=== PATIENT | male | born 1970 | race Caucasian/White ===

== ENCOUNTER 2017-09-09 09:55 | Outpatient (RCR) | payer OTHER, SELFPAY ==
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
== END 2017-09-09 10:30 | disposition home or self-care (01) ==
LOC: PT 09:55
DX: S88.121 Partial traumatic amputation at level between knee and ankle, right lower leg (principal)
CPT/HCPCS: 97164

== ENCOUNTER 2018-04-17 09:00 | Outpatient (RCR) | payer OTHER, SELFPAY ==
--- NOTE | 2018-02-27 16:13 | HP.PTEVAL_ITS ---
Patient's Visit Information JOHN ADORNO is a 47 year old M referred to Physical Therapy by Rufus Quintanilla with a diagnosis of R AKA and L ankle tendonitis. Date of Evaluation: 02/13/18 Physical Therapist: Marco Uribe - Visit Plan Frequency: 2-3x /Week Duration: 6 Weeks Plan: Start with hip flexor stretching, gait training, R hip strengthening, L ankle stretching, L ankle strengthening. - Subjective Subjective: Pt. is here today for his initial evaluation with diagnosis of R AKA and L ankle tendonitis. Pt. is known to his PT from previous episodes of care. Pt. is here now for gait training with R prothesis, he is WBAT and to add in hip stretching, and L ankle ROM/strenghthening. Pt. reports having surgery in Feburary of this year. He has his prothesis and reports having good tolerance to wearing, but is concerned as depending on the day he has to wear greater ply to get a greater fit. Pt. reports having phantom pain at 5-6/10 in R distal LE. Pt. reports no issues with skin break down with distal residual limb. Pt. reports getting used to walking with prothesic knee as previously he was a BKA on the R side. He is to follow up with prothestis tomorrow. He has been trying to do exercises as previously, but reports having difficulty. Pt. is using a crutch with mobility as at times he feels like he leg with buckle on him. He also reports having to perform quick hip flexion to lock his R knee into ext as he prepares for WBing. Pt. reports having 1 episode when his leg gave with prosthesis due to not having it locked in extension berfore adding weight to his limb. He also has a distal lateral ankle issue, with reports that he bent the pin that was implanted in distal fibula from a previous surgery. He reports minimal pain when wearing brace on ankle, but is to alternate wearing and not wearing to increase L ankle strength/proprioception. Pt. is hopeful to increase stability in stance and get to walking without device and back to recreational mobility. - Pain R residual limb Pain Intensity (Out of 10): 5 Pain Intensity Range: 3, 6 L ankle Pain Intensity (Out of 10): 4 Pain Intensity Range: 3, 6 - Objective POSTURE: Pt. is able to stand without AD. He has slight L lateral wt. shift, but prosthesis has no vagus positioning and no lateral angle noted. PALPATION: Pt. has increased pain at L distal fibural region and lateral ankle. Pt. has no medial ankle pain on L side. Pt. has well healing incsion of distal residual limb on R side. Pt. has no drainage or redness noted. NEUROLOGICAL: Pt. has normal sensation to light and sharp touch distal LLE, Pt. has decreased sensation to light touch of residual limp, but firm palaption is normal. Pt. has 2+ L achilles and patellar DTR. ROM:R hip- ext 8deg, flexion 120deg, abd 38deg. L ankle- DF 11deg. increase NW, FP 48deg NE, EVR 12 degrees increase NW , INV 20deg NE. L knee 0-0-128deg., hip- tightness in HS, hip flexor. MMT: LLE - ankle- DF 4+/5, PF 4+/5, EVR 4/5 increase NW, INV 4+/5; knee- ext 5/5. flexion 5/5. RLE- hip- flexion 4/5, abd 4/5, ext 4/5, add 4+/5. Core strength- poor+. GAIT: Pt. ambulates initially with crutch as he feels like his leg will give out on him. Pt. has increased hip flexion to get leg to extend to lock knee out. pt. has no circumduction, but slight R glute med weakness. Pt. ambulated without AD with SBA without LOB, but has increased LORENA and is apprehensive to R bear wt. Pt. to follow up with prosthesis about tightening hindge to increase recoil for knee ext. - Goals Goal 1:: Pt. to be I with HEP. Goal Time Frame: 4-6 Weeks Goal 2:: Pt. to have increased R hip ROM to full without limitations allowing for normal gait pattern Goal Time Frame: 4-6 Weeks Goal 3:: Pt to have increased BLE strength by 1/2 grade of all effected musculature increasing stability with all functional mobility. Goal Time Frame: 4-6 Weeks Goal 4:: Pt. to ambulate without AD 300+ ft. without limatations or signs of residual limb skin breakdown. Goal Time Frame: 4-6 Weeks Goal 5:: Pt. to negoatiate steps with step to pattern with 1 HR without issues or LOB. - Rehabilitation Potential Physical Therapy Diagnosis: Pt. has signs and symptoms consistent with R AKA and L ankle tendonitis. Pt. has subsequent gait difficulties, R hip weakness, L ankle hypomobility and LLE weakness. Pt. would benefit from PT to increase BLE strength, R hip ROM, hip flexor stretching. Rehabilitation Potential: Excellent - Anticipated Interventions Patient/Client Instruction: Educate patient on: Condition, Plan of Care, Risk Factors, Benefits of Fitness Program For the Purpose of:: To improve decision making, To facilitate caregiver knowledge, To improve self management, To prevent re-injury, To improve ability to perform tasks related to life management, To improve tolerance to ADL's Therapeutic Exercise to Include: Strength training, Power training, Endurance training, Balance training, Body mechanics, Postural training, Flexibilty training, Gait and locomotor training, Passive ROM, Active ROM, Dynamic Lumbar Stabilization For the Purpose of:: To decrease pain, To increase ROM, To improve nutrient delivery to tissue, To increase oxygenation perfusion, To improve muscle performance and motor function, To improve ability to perform ADL's, To improve performance and independence with ADL's, To decrease level of supervision to perform tasks, To improve ability of physical actions for home/community/work/ leisure, To improve gait and locomotor functions, To improve health of tissue, To decrease soft tissue restriction, To increase flexibility/ROM, To improve endurance Thank you for the opportunity to evaluate your patient. For Medicare and Medicare HMO plans, please review the plan of care and approve it. It will need to be FAXED BACK to us at [phone] for Medicare purposes. Please let me know if there are questions or concerns regarding this plan of care. Physician Signature: Date:
--- NOTE | 2018-04-28 07:39 | HP.PTREVAL_ITS ---
Rufus Quintanilla, It has been my pleasure to treat JOHN ADORNO over the last 12 visits for R AKA and L ankle tendonitis. Please see the progress note below for an update on the physical therapy plan of care! Subjective: Pt. reports continued pain in L ankle/foot and distal residual limb with prolonged ambulation. He has decreased pain with wearing L brace, but is to wear everyother day to not promote weakness. Pt. reports being able to wear prothesis upto 4-5 hours a day before having intense pain and has to remove. Pt. also reports if he is sitting for longer periods of time he has increased RLE pain, most likely due to prothesis being unsupported and putting pressure on posterior leg. Pt. reports being HEP compliant. He is also to have surgery in near future to remove spinal stimulator in order to have MRI on L ankle/foot. Objective/Function: Pt. is able to ambulate 300ft with SPC with improved pattern. He is less methodical about R foot placement andhaving hinge locked out this date. Pt. has increased BLE strength. RLE- hip- flexion 4+/5, abd 4+/5 , ext 4/5; LLE- ankle 5-/5 throughout; knee- ext 5/5, flexion 5-/5; hip- flexon 5/5, abd 4+/5, ext 5/5. Pt. has increased R hip flexor motion as well, but limited with increased stretching due to icnreased R sided LBP. Pt. also has difficulty with lying on back due to pain at stimulator region. Pt. also reports increased pain at L ankle at incision site of previous surgery, that intensfies with all WBing. Pt. has good positioning of prothesis with gait and has been able to add/remove ply of stockenettes to increase stability for proper fit. Plan Plan: Pt. to follow up with physician and have surgery for removal of stimulator next week. Pt. will most likely be on PT hold while he recovers from surgery. Pt. continues to exhibit generalized weakness in bilateral hips and core. He has improved gait pattern and increased fluidity of movement with prothesis. He continues to require cane for stability. Goals Goal 1:: Pt. to be I with HEP. Goal Time Frame: 4-6 Weeks Goal Progress: Goal Met Goal 2:: Pt. to have increased R hip ROM to full without limitations allowing for normal gait pattern Goal Time Frame: 4-6 Weeks Goal Progress: Progressing Goal 3:: Pt to have increased BLE strength by 1/2 grade of all effected musculature increasing stability with all functional mobility. Goal Time Frame: 4-6 Weeks Goal Progress: Goal Met Goal 4:: Pt. to ambulate without AD 300+ ft. without limatations or signs of residual limb skin breakdown. Goal Time Frame: 4-6 Weeks Goal Progress: Progressing Goal 5:: Pt. to negoatiate steps with step to pattern with 1 HR without issues or LOB. Goal Progress: Goal Met Anticipated Interventions Patient/Client Instruction: Educate patient on: Condition, Plan of Care, Risk Factors, Benefits of Fitness Program For the Purpose of:: To improve decision making, To facilitate caregiver knowledge, To improve self management, To prevent re-injury, To improve ability to perform tasks related to life management, To improve tolerance to ADL's Therapeutic Exercise to Include: Strength training, Power training, Endurance training, Balance training, Body mechanics, Postural training, Flexibilty training, Gait and locomotor training, Passive ROM, Active ROM, Dynamic Lumbar Stabilization For the Purpose of:: To decrease pain, To increase ROM, To improve nutrient delivery to tissue, To increase oxygenation perfusion, To improve muscle performance and motor function, To improve ability to perform ADL's, To improve performance and independence with ADL's, To decrease level of supervision to perform tasks, To improve ability of physical actions for home/community/work/ leisure, To improve gait and locomotor functions, To improve health of tissue, To decrease soft tissue restriction, To increase flexibility/ROM, To improve endurance Please do not hesitate to contact me at [phone] by phone or Fax: if you have questions or concerns regarding this new plan of care! Sincerely, Marco Uribe
--- NOTE | 2018-07-10 11:15 | HP.PTDCNRP_ITS ---
HP - Discharge Summary (1) - Patient Information JOHN ADORNO was seen in my office for initial evaluation on 02/13/18. The following Plan of Care was established for this patient: Initial Frequency: 2-3x /Week Initial Duration: 6 Weeks - Anticipated Interventions Patient/Client Instruction: Educate patient on: Condition, Plan of Care, Risk Factors, Benefits of Fitness Program For the Purpose of:: To improve decision making, To facilitate caregiver knowledge, To improve self management, To prevent re-injury, To improve ability to perform tasks related to life management, To improve tolerance to ADL's Therapeutic Exercise to Include: Strength training, Power training, Endurance training, Balance training, Body mechanics, Postural training, Flexibilty training, Gait and locomotor training, Passive ROM, Active ROM, Dynamic Lumbar Stabilization For the Purpose of:: To decrease pain, To increase ROM, To improve nutrient delivery to tissue, To increase oxygenation perfusion, To improve muscle performance and motor function, To improve ability to perform ADL's, To improve performance and independence with ADL's, To decrease level of supervision to perform tasks, To improve ability of physical actions for home/community/work/leisure, To improve gait and locomotor functions, To improve health of tissue, To decrease soft tissue restriction, To increase fl exibility/ROM, To improve endurance This patient was last seen in our office 04/17/18. Pertinent comments regarding their Physical therapy will appear below: Pt. was seen for gait training after AKA. Pt. was progressing as expected, but was limited by his opposite LE ankle pain. At our last visit he was to have surgery to remove spinal stimulator and then possible ORIF of L ankle. Pt. has not been seen in ~3 months and will be DC from PT at this point in time. At this point I will be discontinuing this patient from physical therapy. I would be happy to see this patient again in the future if found appropriate by the physician. Thank you! Marco Uribe
== END 2018-04-17 19:00 | disposition home or self-care (01) ==
LOC: PT 09:00
DX: M77.9 Enthesopathy, unspecified (principal); Z89.611 Acquired absence of right leg above knee
CPT/HCPCS: 97110; 97116; 97162; 97530

== ENCOUNTER 2019-01-26 07:00 | Outpatient (RCR) | payer OTHER, SELFPAY ==
--- NOTE | 2018-08-04 08:42 | HP.PTEVAL_ITS ---
Patient's Visit Information JOHN ADORNO is a 48 year old M referred to Physical Therapy by HAO WEATHERS with a diagnosis of Right AKA. Date of Evaluation: 08/04/18 Physical Therapist: Marylou Stearns - Visit Plan Frequency: 3x /Week Duration: 6 Weeks Plan: Focus on endurance, strength and core s/s - Subjective Subjective: 05/20/11 Initial Injury-Last time therapy was supposed to continue but [facility] had a hold. The finally removed the spinal cord stimulator February 2018- Jul 17 MRI of the left ankle- read Aug 14 read- Dr. Philip in . Then he has to wait to see what [facility] will approve. Last they approved his new prosthesis- [employer]- every until . Falls about 1x a day due to his old prosthesis- eps on uneven ground. Has not hit his head or lost consiousness. Always uses the cane for balance and helps to decrease his falls. Has two types of pain- phantom pain never decreases and is terrible- subdued when in the prosthesis or with compression. Worst: 8/10 Best: 10. L imb pain in the right leg- /10 goes up and down depending on activity level. Wraps his own stump. No sores from pressure or anythign else. Very active- waiste up wants to go but waiste down is where he is slowed down. Weakness in walking and endurance. Sleeps 4 hours a night and its not continual. PMhx: 9 hernia surgeries, left ankle surgery, 7 amputations from below to above knee- 6 months after injury until Osteomyelitis took it. Does feel there will have to be continued surgeries. Meds: none Work: Disability - Objective POSTURE: FH, RS- can correct with verbal cues but does not maintain. He is able to stand without AD and no UE A. He has mild L lateral wt. shift, but prosthesis has no vagus positioning and no lateral angle noted. PALPATION: Patient reports increased pain with touch of any kind to the residual limb. Reflexes: Pt. has 2+ L achilles and patellar DTR. ROM:WFL in all planes of the right hip and left LE MMT: Right hip: 4/5 throughout, Left hip: 4+/5, Knee: 5/5, ankle: 4+/5 Core strength- poor+. GAIT: ambulates with cane in his left hand- kicks his right leg forwards to lock out the knee to bear weight through. Increased hip drop. Stairs: asc.desc non recip with 2 HR. HR/TR: able on the left - Goals Goal 1:: Patient will be I with HEP and progression Goal Time Frame: 6-8 Weeks Goal 2:: Patient will demo 5/5 strength in LE Goal Time Frame: 6-8 Weeks Goal 3:: Patient will maintain proper posture t/o tx session to demo increased scap s/s. Goal Time Frame: 6-8 Weeks Goal 4:: Patient will report 3 falls per week without injury (down from over 7). Goal Time Frame: 6-8 Weeks - Rehabilitation Potential Physical Therapy Diagnosis: Patient presents with hypomobility- he has decreased strength, flex and muscular endurnace leading to abnormal gait and decreased ability to perform ADL's. Rehabilitation Potential: Fair - Anticipated Interventions Patient/Client Instruction: Educate patient on: Benefits of Fitness Program Therapeutic Exercise to Include: Strength training, Endurance training, Balance training, Agility training, Body mechanics, Postural training, Flexibilty training, Dynamic Lumbar Stabilization For the Purpose of:: To improve muscle performance and motor function Thank you for the opportunity to evaluate your patient. For Medicare and Medicare HMO plans, please review the plan of care and approve it. It will need to be FAXED BACK to us at [phone] for Medicare purposes. Please let me know if there are questions or concerns regarding this plan of care. Physician Signature:____ Date:
--- NOTE | 2018-09-24 09:19 | HP.PTREVAL_ITS ---
HAO WEATHERS, It has been my pleasure to treat JOHN ADORNO over the last 14 visits for Right AKA. Please see the progress note below for an update on the physical therapy plan of care! Subjective: Patient reports that he had his leg for 3 days- heard a crunch and it felt like his leg was disintegrating and his foot came off. Goes back to the entry level account representative next week. Feels like it gives more umph. Therapy needs to learn how to walk with the new leg- the MD already is in the works. Objective/Function: Measurements in his old leg as his new one needs repairs- see above note. POSTURE: FH, RS- can correct with verbal cues but does not maintain. He is able to stand without AD and no UE A. He has mild L lateral wt. shift, but prosthesis has no vagus positioning and no lateral angle noted. PALPATION: Patient reports increased pain with touch of any kind to the residual limb. Reflexes: Pt. has 2+ L achilles and patellar DTR. ROM:WFL in all planes of the right hip and left LE MMT: Right hip: 4/5 throughout, Left hip: 4+/5, Knee: 5/5, ankle: 4+/5 Core strength- fair plus. GAIT: ambulates with cane in his left hand- kicks his right leg forwards to lock out the knee to bear weight through. Increased hip drop. Stairs: asc.desc non recip with 2 HR. HR/TR: able on the left Plan Plan: Finish the last 4 visits on this POC then continue 2-3x a week for 8 weeks with new prosthesis to promote I and ease of functional mobility. Goals Goal 1:: Patient will be I with HEP and progression Goal Time Frame: 6-8 Weeks Goal Progress: Progressing Goal 2:: Patient will demo 5/5 strength in LE Goal Time Frame: 6-8 Weeks Goal Progress: Progressing Goal 3:: Patient will maintain proper posture t/o tx session to demo increased scap s/s. Goal Time Frame: 6-8 Weeks Goal Progress: Progressing Goal 4:: Patient will report 3 falls per week without injury (down from over 7). Goal Time Frame: 6-8 Weeks Goal Progress: Progressing Anticipated Interventions Patient/Client Instruction: Educate patient on: Benefits of Fitness Program Therapeutic Exercise to Include: Strength training, Endurance training, Balance training, Agility training, Body mechanics, Postural training, Flexibilty training, Dynamic Lumbar Stabilization For the Purpose of:: To improve muscle performance and motor function Please do not hesitate to contact me at [phone] by phone or if you have questions or concerns regarding this new plan of care! Sincerely, CLARY ShahT
--- NOTE | 2018-12-02 10:52 | HP.PTREVAL ---
HAO WEATHERS, It has been my pleasure to treat JOHN ADORNO over the last 19 visits for Right AKA. Please see the progress note below for an update on the physical therapy plan of care! Subjective: New pain management doctor and he is working with medications and he would like to take less- they want him to take it daily but it makes him sick so he takes it at night. Goes back to see him . They are about to make home modifications- talking about a possible leg to wear in the shower. Wakes up every morning does his band exercises and he feels awful. The new prosthesis is really hard to get use to. He feels really weak in his lower extremeities. Phantom pain when he takes his leg off. Objective/Function: POSTURE: FH, RS- can correct with verbal cues but does not maintain. He is able to stand without AD and no UE A. He has mild L lateral wt. shift.PALPATION: Patient reports increased pain with touch of any kind to the residual limb. ROM:WFL in all planes of the right hip and left LE MMT: Right hip: 4/5 throughout, Left hip: 4/5, Knee: 5/5, ankle: 5/5 Core strength- fair. GAIT: ambulates with no AD- kicks his right leg forwards to lock out the knee to bear weight through which takes a second longer so his gait is not smooth. Increased hip drop. Stairs: asc.desc non recip with 2 HR. HR/TR: able on the left. SLS: 18 seconds on the left and 2 seconds on the prosthesis. Plan Plan: Cont with POC 2x a week for 5 weeks Goals Goal 1:: Patient will be I with HEP and progression Goal Time Frame: 6-8 Weeks Goal Progress: Progressing Goal 2:: Patient will demo 5/5 strength in LE Goal Time Frame: 6-8 Weeks Goal Progress: Progressing Goal 3:: Patient will maintain proper posture t/o tx session to demo increased scap s/s. Goal Time Frame: 6-8 Weeks Goal Progress: Progressing Goal 4:: Patient will report 3 falls per week without injury (down from over 7). Goal Time Frame: 6-8 Weeks Goal Progress: Progressing Anticipated Interventions Patient/Client Instruction: Educate patient on: Benefits of Fitness Program Therapeutic Exercise to Include: Strength training, Endurance training, Balance training, Agility training, Body mechanics, Postural training, Flexibilty training, Dynamic Lumbar Stabilization For the Purpose of:: To improve muscle performance and motor function Please do not hesitate to contact me at [phone] by phone or if you have questions or concerns regarding this new plan of care! Sincerely, CLARY ShahT
--- NOTE | 2019-01-06 10:04 | HP.PTREVAL ---
HAO WEATHERS, It has been my pleasure to treat JOHN ADORNO over the last 28 visits for Right AKA. Please see the progress note below for an update on the physical therapy plan of care! Subjective: Saw MD last week and discussed his plateau- he is miserable in the AM but once he does therapy he feels better. MD wants to continue therapy on land and add in aquatic therapy but waiting to get a prosthetic that can go in the water. Is planning on having a new C9 put in place. Adjustments for the prosthesis and now its a little sore- No problems with wounds. Does feel like he is getting better. Objective/Function: POSTURE: FH, RS- can correct with verbal cues but does not maintain. He is able to stand without AD and no UE A. He has mild L lateral wt. shift.PALPATION: Patient reports increased pain with touch of any kind to the residual limb. ROM:WFL in all planes of the right hip and left LE MMT: Right hip: 4+/5 throughout, Left hip: 4+/5, Knee: 5/5, ankle: 5/5 Core strength- fair plus. GAIT: ambulates with no AD- kicks his right leg forwards to lock out the knee to bear weight through which takes a second longer so his gait is not smooth. Increased hip drop. Stairs: asc.desc non recip with 2 HR. HR/TR: able on the left no brace today on left ankle. Plan Plan: Hold until new C9 is established Goals Goal 1:: Patient will be I with HEP and progression Goal Time Frame: 6-8 Weeks Goal Progress: Progressing Goal 2:: Patient will demo 5/5 strength in LE Goal Time Frame: 6-8 Weeks Goal Progress: Progressing Goal 3:: Patient will maintain proper posture t/o tx session to demo increased scap s/s. Goal Time Frame: 6-8 Weeks Goal Progress: Progressing Goal 4:: Patient will report 3 falls per week without injury (down from over 7). Goal Time Frame: 6-8 Weeks Goal Progress: Progressing Anticipated Interventions Patient/Client Instruction: Educate patient on: Benefits of Fitness Program Therapeutic Exercise to Include: Strength training, Endurance training, Balance training, Agility training, Body mechanics, Postural training, Flexibilty training, Dynamic Lumbar Stabilization For the Purpose of:: To improve muscle performance and motor function Please do not hesitate to contact me at [phone] by phone or if you have questions or concerns regarding this new plan of care! Sincerely, CLARY ShahT
--- NOTE | 2019-02-05 13:38 | HP.PT.NRP ---
HP - Discharge Summary (1) - Patient Information JOHN ADORNO was seen in my office for initial evaluation on 08/04/18. The following Plan of Care was established for this patient: Initial Frequency: 3x /Week Initial Duration: 6 Weeks - Anticipated Interventions Patient/Client Instruction: Educate patient on: Benefits of Fitness Program Therapeutic Exercise to Include: Strength training, Endurance training, Balance training, Agility training, Body mechanics, Postural training, Flexibilty training, Dynamic Lumbar Stabilization For the Purpose of:: To improve muscle performance and motor function This patient was last seen in our office . Pertinent comments regarding their Physical therapy will appear below: Discharge secondary to no date extension on C9 At this point I will be discontinuing this patient from physical therapy. I would be happy to see this patient again in the future if found appropriate by the physician. Thank you! CLARY ShahT
== END 2019-01-26 19:00 | disposition home or self-care (01) ==
LOC: PT 07:00
DX: G90.511 Complex regional pain syndrome I of right upper limb (principal); S82.121D Displaced fracture of lateral condyle of right tibia, subsequent encounter for closed fracture with routine healing; M76.72 Peroneal tendinitis, left leg
CPT/HCPCS: 97110; 97162; 97164

== ENCOUNTER 2019-04-09 11:30 | Outpatient (RCR) | payer OTHER, SELFPAY ==
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
--- NOTE | 2019-06-26 10:50 | HP.PT.NRP ---
HP - Discharge Summary (1) - Patient Information JOHN ADORNO was seen in my office for initial evaluation on 03/23/19. The following Plan of Care was established for this patient: Initial Frequency: 3x /Week Initial Duration: 4 Weeks - Anticipated Interventions Patient/Client Instruction: Educate patient on: Condition, Plan of Care For the Purpose of:: To improve self management Therapeutic Exercise to Include: Strength training, Endurance training, Balance training, Gait and locomotor training, Dynamic Lumbar Stabilization For the Purpose of:: To decrease pain, To improve muscle performance and motor function, To improve gait and locomotor functions Cryotherapy (ice pack, ice massage): Yes For the Purpose of:: To decrease pain This patient was last seen in our office . Pertinent comments regarding their Physical therapy will appear below: Pt was treated for 6 PT visits through the date of 04/09/19. Pt has not returned through todays date and is discontinued at this time. At this point I will be discontinuing this patient from physical therapy. I would be happy to see this patient again in the future if found appropriate by the physician. Thank you! Sourav Lopes, PT, ATC
== END 2019-04-09 19:00 | disposition home or self-care (01) ==
LOC: PT 11:30
DX: S88.121 Partial traumatic amputation at level between knee and ankle, right lower leg (principal); G90.511 Complex regional pain syndrome I of right upper limb
CPT/HCPCS: 97110; 97161

== ENCOUNTER 2020-07-20 17:00 | Emergency (ER) | payer OTHER, SELFPAY ==
[2020-07-20 17:00] VITALS: BP 131/96; PULSE 77; RESP 16; TEMP 36.1; O2SAT 99; BMI 29.3
--- NOTE | 2020-07-20 17:31 | ED.VIS.GEN ---
History of Present Illness Chief Complaint: Lower Extremity Injury Narrative: Patient has a right vkfag-ajw-khom amputation which was performed 9 years ago, he has chronic pain but his pain in the right leg got worse today. He had a recent STEMI, his PCP apparently did not know if he can have muscle relaxants. He was sent to the emergency department. He has no new pain today he has no fever or chills he has no discoloration he ended up having a catheterization but the insertion was through the right wrist and not the groin. Past Medical History - Allergies and Home Meds Allergies/Adverse Reactions: Allergies No Known Allergies Allergy (Verified 07/20/20 17:03) Primary Care Physician: Lakesha Wick,Out of [Primary Care Provider] - Past Medical History: - - Zsyku-hon-gutk amputation, cardiac disease Smoking Status: Former smoker Review of Systems General: Denies: Fever Cardiovascular: Denies: Chest pain Gastrointestinal: Denies: Nausea, Vomiting Musculoskeletal: Reports: Myalgias, Extremity Pain Skin: Denies: Rash Neurological: Denies: Headache, Weakness Hematologic: Denies: Easy bruising, Easy bleeding Physical Exam Vital Signs/Narrative: Vital Signs Temp Pulse Resp BP Pulse Ox 07/20/20 17:00 97 F L 77 16 131/96 H 99 General: Well nourished Head: Normocephalic Cardiovascular: Regular rate, Regular rhythm Respiratory: No distress, CTA bilaterally Abdomen: Soft, Nontender Back: Nontender Extremities: - - The hmvga-mpl-juau amputation looks intact he has normal color with normal capillary refill. Femoral pulse is intact Neurological: Normal Strength, Normal Sensation Diagnostic/Tx/Re-eval - Medical Decision Making Patient has chronic recurrent pain he appears well he tells me this is the same pain is just somewhat worse. I will treated with analgesia he has Percocets at home but no muscle relaxants. Otherwise I will discharge in stable condition ED Disposition - Plan for ED Patient: Disposition: Home or Assisted Living Diagnosis: Hx of BKA, Muscle spasm Instructions: ED Muscle Pain Leg Cramps Prescriptions: Tizanidine HCl 4 mg PO TID #30 tab Prescription Printed Referrals: Lakesha WickOut of [Primary Care Provider] -
[2020-07-20] MEDS: Ondansetron ODT 4 MG Tablet PO (17:40)
[2020-07-20] MEDS: HYDROmorphone 1 MG/ML Syringe IM (17:41)
[2020-07-20] MEDS: diazePAM 5 MG Tablet PO (17:42)
[2020-07-20 18:20] VITALS: BP 126/87; PULSE 76; RESP 15; O2SAT 98
== END 2020-07-20 18:20 | disposition home or self-care (01) ==
PROVIDERS: Emergency Provider Emergency Medicine
DX: M62.838 Other muscle spasm (principal); Z89.611 Acquired absence of right leg above knee
CPT/HCPCS: 96372; 99283

== ENCOUNTER 2021-04-12 10:00 | Outpatient (RCR) | payer OTHER, SELFPAY ==
--- NOTE | 2021-03-06 16:24 | HP.OTEVAL ---
Patient's Visit Information JOHN ADORNO is a 50 year old M, referred to Occupational Therapy by JOSÉ ANTONIO ALMEIDA, with a diagnosis of right lateral epicondylitis. Date of Evaluation: 03/06/21 Occupational Therapist: Vickie Andujar, RADHA/Petrona, CHT - Subjective This 50 year old male was seen for OT eval with dx of lateral epicondylitis right elbow- sx release was February 01, 2021. pt states at least 6 years of issues prior to sx. pt to have left 03/15/21. pt using crutches or walker daily. due to a AKA right. pt is hopeful pain will subside following sx and he can use his WW or crutches for mobility around his home. - Pain right elbow 1 Pain Intensity Range: 4 - ROM Elbow: right 0/140 left 0/140 Forearm: right WNL but has pain 4/10 left WNL Wrist: right 65/50 left 75/60 - Strength Shoulder: right 4/5 left 4-/5 Elbow: right triceps 4-/10 left 4/5 Senior Interactive Producer: right 70# left 75# Lateral Pinch: right 6# left 8# Tripod Pinch: right 6# left 8# with pain Strength Comments: right elbow straight 70# left 60# with pain - Sensation Sensation Comments: denies - Quick DASH-Disab of Arm,Shoulder& Hand Quick DASH Score: 52.2725 - Goals Goal:: Pt will demo a increase in right roving tester laboratory by 10# with no pain to return pt to PLOF with ADLs and IADls. pt will demo a increase in right lateral and tripod pinch by 4# to increase pts ind. with opening lids/containers etc by d/c. PT will demo a increase in UB MMT to 5/5 by d/c Goal:: pt will demo a increase in right wrist ROM by 20* or greater to return pt to PLOF with ADLs and IADLs by d/c Goal:: pt will report no pain greater than 1/10 with use of right UE by d/c Goal:: Pt will demo understanding of work/lifting and carry ergonomics to decrease stress on tendons to increase pts independent with ADLs, IADLS and work tasks by d/c. - Rehabilitation General Assessment: pt is 4 weeks 2 days s/p from lat epi release. pt demo with limited right wrist ROM, weakness and pain limiting pts IND with ADLs and IADLS. pt would benefit from skilled OT services 2-3x week for 4 weeks to return pt to PLOF. Today pt ed. pt on light end range stretch and scar mtg- therapy will transition pt to PRE as anastasiia. and ed. pt on ergo and joint protection to limit stress on lig/tendons and prevent further inj. pt demo understanding and agree to POC. Rehabilitation Potential: Good - Anticipated Interventions A/AAROM/PROM, Strengthening, Scar Care, Triggerpoint Release, Joint Protection/Energy Conservation - Visit Plan Frequency: 2-3x /Week Duration: 4 Weeks TEXT: Thank you for the opportunity to evaluate your patient. For Medicare and Medicare HMO plans, please review the plan of care and approve it. It will need to be FAXED BACK to us at [phone] for Medicare purposes. Please let me know if there are questions or concerns regarding this plan of care. Physician Signature: Date:
== END 2021-04-12 19:00 | disposition home or self-care (01) ==
LOC: OT 10:00
DX: M77.11 Lateral epicondylitis, right elbow (principal)
CPT/HCPCS: 97110; 97166

== ENCOUNTER 2023-08-23 21:22 | Emergency (ER) | payer MEDICARE, MEDICAID, SELFPAY ==
[2023-08-23 21:23] VITALS: BP 123/75; PULSE 82; RESP 18; TEMP 36.6; O2SAT 98
--- NOTE | 2023-08-23 22:14 | EDS_ITS ---
HPI <Dr. Marv Loja DO - Last Filed: 08/26/23 09:10> HPI - Fall History of Present Illness Chief Complaint: Fall Informant: patient Occured/Mechanism Occurred: Today Fall down steps #: 2 Pain/Injury Pain Location: abdomen and back Worsened by: Nothing Relieved by: Nothing Associated Symptoms Associated Symptoms: Negative for Parasthesias, Weakness, Loss of function, Inability to ambulate, Loss of consciousness or Amnesia Narrative Narrative: Patient presents after a fall that occurred today. Patient fell down 2 steps and hit his back. Patient landed on the garage floor. Patient was able to get up after this. Patient fell again and landed on his back. Patient had some nausea and vomiting after the second fall. states that appeared to be brown emesis that looked like stool. Patient states his pain is sharp. Patient states it is localized to the left lower back and left abdomen. Patient admits to some subjective chills but denies any fevers. Patient denies any urinary complaints. [facility] <Dr. Marv Loja DO - Last Filed: 08/26/23 09:10> [facility] Medical History (Updated 08/24/23 @ 02:[address] Seth Moses DO) Hyperlipidemia Home Medications cephalexin 500 mg capsule 07/20/20 [History Last Taken Unknown] clopidogrel 75 mg tablet 75 mg PO DAILY 07/20/20 [History Last Taken Unknown] metoprolol tartrate 25 mg tablet 12.5 mg PO BID 07/20/20 [History Last Taken Unknown] rosuvastatin 20 mg tablet 20 mg PO DAILY 07/20/20 [History Last Taken Unknown] tizanidine 4 mg tablet 4 mg PO TID #30 tabs 07/20/20 [Rx Last Taken Unknown] ketorolac 10 mg tablet 10 mg PO 4X/DAY PRN PRN pain 5 days #20 tabs 08/24/23 [Rx Last Taken Unknown] oxycodone-acetaminophen 5 mg-325 mg tablet (Percocet) 1 tab PO Q6H PRN pain 5 days #20 tabs 08/24/23 [Rx Last Taken Unknown] promethazine 25 mg tablet 25 mg PO TID PRN nausea and vomiting #21 tabs 08/24/23 [Rx Last Taken Unknown] tamsulosin 0.4 mg capsule (Flomax) 0.4 mg PO DAILY 14 days #14 caps 11/25/23 [Rx Last Taken Unknown] Allergy/AdvReac Type Severity Reaction Status Date / Time No Known Allergies Allergy Verified 08/23/23 21:26 Surgical History (Updated 08/23/23 @ 22:[address] Marv Loja, ) Hx of BKA Hx of heart artery stent Social History Smoking Status: Former smoker ROS <Dr. Marv Loja, - Last Filed: 08/26/23 09:10> ROS ED Constitutional Constitutional ED: Reports chills; Denies fever(s) Eyes Eyes: Denies blurry vision or change in vision ENT ENT ED: Reports rhinorrhea; Denies sore throat Cardiovascular Cardiovascular: Denies chest pain or palpitations Respiratory/Chest Respiratory/Chest: Denies cough or dyspnea Gastrointestinal Gastrointestinal: Reports abdominal pain, nausea and vomiting Genitourinary Genitourinary ED: Denies dysuria or hematuria Musculoskeletal Musculoskeletal: Reports back pain; Denies neck pain Integumentary Denies abscess or rash Neurologic Neurologic: Denies headache(s) or weakness Allergic/Immunologic Allergic/Immunologic ED: Denies mouth swelling or urticaria EXAM <Dr. Marv Loja, DO - Last Filed: 08/26/23 09:10> Physical Exam Const Vital Signs: 08/23/23 21:23 08/23/23 22:41 Temperature 97.9 F Temperature Source Temporal Pulse Rate 82 Respiratory Rate 18 Respiratory Effort Short of Breath Blood Pressure 123/75 H Blood Pressure Mean 91 Pulse Ox 98 Oxygen Delivery Method Room Air Positive well nourished and well developed General Appearance ED: well developed HEENT Reports normocephalic atraumatic Neck full ROM and supple Resp normal respiratory effort and clear to auscultation bilaterally Cardio regular rate and regular rhythm GI GI Narrative: There is tenderness over the left upper and lower abdomen. There is no rebound or guarding noted. There are no masses palpated. Palpation: soft Back/Spine General Back: CVA tenderness left Lumbar Spine / Lower Back: paraspinal muscle tenderness left Neuro oriented x3, CN's II-XII intact bilaterally, moves all extremities, no focal motor deficits and no sensory deficits noted Kimberly Coma Scale: document GCS findings Spontaneous Obeys Commands Oriented 15 Sensorium / Orientation: alert Motor Exam: strength 5/5 throughout Psych mental status grossly normal and thought process normal <Dr. Seth Moses, DO - Last Filed: 08/24/23 02:50> Physical Exam Const Vital Signs: 08/23/23 21:23 08/23/23 22:41 Temperature 97.9 F Temperature Source Temporal Pulse Rate 82 Respiratory Rate 18 Respiratory Effort Short of Breath Blood Pressure 123/75 H Blood Pressure Mean 91 Pulse Ox 98 Oxygen Delivery Method Room Air Neuro Kimberly Coma Scale: document GCS findings 15 MDM <Dr. Marv Loja, DO - Last Filed: 08/26/23 09:10> [facility] MDM Narrative Medical decision making narrative: Differential diagnosis includes bowel obstruction, perforation, acute kidney injury, renal contusion, intra-abdominal injury, electrolyte abnormality, coagulopathy, and muscle strain. CBC will be obtained to assess for leukocytosis and anemia. Comprehensive metabolic profile will be obtained to assess for hepatic function, renal function, and electrolyte abnormality. PT with INR and PTT will be obtained to assess for coagulopathy. CT scan of the abdomen pelvis will be obtained to assess for bowel obstruction, perforation, and intra-abdominal injury. Urinalysis will be obtained to assess for hematuria and urinary tract infection. Lab Data Attestation: I reviewed the patient's lab results. Lab results narrative: CBC was reviewed. There is a slight leukocytosis of 11.3. The remainder is within normal limits. PT with INR and PTT were reviewed and were within normal limits. Comprehensive metabolic profile was reviewed and was within normal limits. Urinalysis was reviewed. Occult blood was 250. There were 50-100 red blood cells noted. There were 5-10 white blood cells noted. Labs: Laboratory Results - last 24 hr 08/23/23 08/24/23 21:33 00:06 WBC 11.3 H RBC 4.86 Hgb 13.7 Hct 41.1 MCV 84.6 MCH 28.2 MCHC 33.3 RDW Std Deviation 41.0 RDW Coeff of [place] 13.3 Plt Count 200 MPV 11.9 Immature Gran % (Auto) 1.100 H Neut % (Auto) 69.6 Lymph % (Auto) 20.3 [place] % (Auto) 7.0 Eos % (Auto) 1.2 Baso % (Auto) 0.8 Absolute Neuts (auto) 7.9 H Absolute Lymphs (auto) 2.30 Nucleated RBC % 0 PT 12.5 INR 0.9 APTT 25.4 Sodium 140 Potassium 3.6 Chloride 105 Carbon Dioxide 30.0 Anion Gap 5 BUN 20 H Creatinine 1.17 Estim Creat Clear Calc 86.27 Est GFR (MDRD) Af Amer 84 Est GFR (MDRD) Non-Af 69 BUN/Creatinine Ratio 17.1 Glucose 190 H Calcium 9.2 Total Bilirubin 0.30 AST 30 ALT 51 Alkaline Phosphatase 73 Total Protein 7.2 Albumin 4.0 Globulin 3.2 Albumin/Globulin Ratio 1.2 Urine Color Yellow Urine Clarity Sl. Cloudy Urine pH 7.0 Ur Specific [place] 1.015 Urine Protein 30 H Urine Glucose (UA) 50 H Urine Ketones Negative Urine Occult Blood 250 H Urine Nitrite Negative Urine Bilirubin Negative Urine Urobilinogen Normal Ur Leukocyte Esterase 25 H Urine RBC 50-100 SEEN Urine WBC 5-10 SEEN Ur Squamous Epith Cells 0-5 SEEN Urine Bacteria 0 SEEN Urine Mucus 0 SEEN Radiography Diagnostic Testing: Clinical Impression(s) from Imaging Studies Abdomen/Pelvis CT 08/23/23 22:22 IMPRESSION: 1. Left nephrolithiasis. Mild left hydroureteronephrosis to the level of a 5 mm x 3 mm stone in the proximal-mid left ureter. Slight left perinephric fluid and soft tissue stranding and mild delayed phase enhancement of the left kidney compared to the right, findings consistent with acute ureter obstruction. 2. No other acute findings. Postoperative changes. Minimal degenerative spine changes. Presumed coronary artery stents. Electronically Signed: Kari Lara MD at 1:54 EST , Treatment and Re-Evaluation Narrative: Patient was given IV fluids, morphine, and Zofran. Patient was given a repeat dose of morphine and Zofran. Care of the patient was turned over to the oncoming physician pending CT scan results. <Dr. Seth Moses, DO - Last Filed: 08/24/23 02:50> [facility] History & Record Review Discussion w/independent historian: Patient and Significant other Lab Data Labs: Laboratory Results - last 24 hr 08/23/23 08/24/23 21:33 00:06 WBC 11.3 H RBC 4.86 Hgb 13.7 Hct 41.1 MCV 84.6 MCH 28.2 MCHC 33.3 RDW Std Deviation 41.0 RDW Coeff of [place] 13.3 Plt Count 200 MPV 11.9 Immature Gran % (Auto) 1.100 H Neut % (Auto) 69.6 Lymph % (Auto) 20.3 [place] % (Auto) 7.0 Eos % (Auto) 1.2 Baso % (Auto) 0.8 Absolute Neuts (auto) 7.9 H Absolute Lymphs (auto) 2.30 Nucleated RBC % 0 PT 12.5 INR 0.9 APTT 25.4 Sodium 140 Potassium 3.6 Chloride 105 Carbon Dioxide 30.0 Anion Gap 5 BUN 20 H Creatinine 1.17 Estim Creat Clear Calc 86.27 Est GFR (MDRD) Af Amer 84 Est GFR (MDRD) Non-Af 69 BUN/Creatinine Ratio 17.1 Glucose 190 H Calcium 9.2 Total Bilirubin 0.30 AST 30 ALT 51 Alkaline Phosphatase 73 Total Protein 7.2 Albumin 4.0 Globulin 3.2 Albumin/Globulin Ratio 1.2 Urine Color Yellow Urine Clarity Sl. Cloudy Urine pH 7.0 Ur Specific [place] 1.015 Urine Protein 30 H Urine Glucose (UA) 50 H Urine Ketones Negative Urine Occult Blood 250 H Urine Nitrite Negative Urine Bilirubin Negative Urine Urobilinogen Normal Ur Leukocyte Esterase 25 H Urine RBC 50-100 SEEN Urine WBC 5-10 SEEN Ur Squamous Epith Cells 0-5 SEEN Urine Bacteria 0 SEEN Urine Mucus 0 SEEN Radiography Diagnostic Testing: Clinical Impression(s) from Imaging Studies Abdomen/Pelvis CT 08/23/23 22:22 IMPRESSION: 1. Left nephrolithiasis. Mild left hydroureteronephrosis to the level of a 5 mm x 3 mm stone in the proximal-mid left ureter. Slight left perinephric fluid and soft tissue stranding and mild delayed phase enhancement of the left kidney compared to the right, findings consistent with acute ureter obstruction. 2. No other acute findings. Postoperative changes. Minimal degenerative spine changes. Presumed coronary artery stents. Electronically Signed: Kari Lara MD at 1:54 EST , Treatment and Re-Evaluation Narrative: Patient was given IV fluids, morphine, and Zofran. Patient was given a repeat dose of morphine and Zofran. Care of the patient was turned over to the oncoming physician pending CT scan results. Patient was signed out to me pending results of his CT scan. CT scan showed a stone within the left ureter which does correlate with the patient's pain but there is no signs of trauma such as kidney laceration splenic laceration or intestinal injury. On reevaluation the patient reports his pain is much better at a value of a 4. He does not have acute kidney injury or urosepsis and has had improvement of pain and therefore he will be given symptomatic medications and discharged home Discharge Plan Triage Chief Complaint: Fall ED Provider: Marv Loja Dx/Rx/DC Orders Clinical Impression: Acute left flank pain, Fall, Renal colic, Kidney stone on left side Instructions: ED Kidney Stone w/ Colic Prescriptions: New oxycodone-acetaminophen [Percocet] 5-325 mg tablet 1 tab PO Q6H PRN (Reason: pain) 5 Days Qty: 20 0RF ketorolac 10 mg tablet 10 mg PO 4X/DAY PRN PRN (Reason: pain) 5 Days Qty: 20 0RF promethazine 25 mg tablet 25 mg PO TID PRN (Reason: nausea and vomiting) Qty: 21 0RF tamsulosin [Flomax] 0.4 mg capsule 0.4 mg PO DAILY 14 Days Qty: 14 0RF No Action clopidogrel 75 MG tablet 75 mg PO DAILY cephalexin 500 MG capsule Patient Comments: take 1 capsule by mouth four times a day for 10 days rosuvastatin 20 MG tablet 20 mg PO DAILY metoprolol tartrate 25 MG tablet 12.5 mg PO BID tizanidine 4 MG tablet 4 mg PO TID Qty: 30 0RF Primary Care Provider: Care Physician,No Primary Referrals: Michael Villar MD [Med Staff - Active Staff] - Care Physician,No Primary [Primary Care Provider] - Activity Restrictions/Additional Instructions: Please return to the ER if you develop a fever over 100.4 or your pain is not controlled with the provided medication. Otherwise keep yourself well-hydrated and follow-up with urology for repeat evaluation Disposition Disposition: Home, Self Care Discharge Date/Time: 08/24/23 03:06
--- NOTE | 2023-08-23 22:22 | CT_ITS ---
EXAM: CT ABDOMEN AND PELVIS WITH INTRAVENOUS CONTRAST CLINICAL INDICATION: Abdominal pain -- IV PO Contrast TECHNIQUE: Helically acquired images were obtained of the abdomen and pelvis with intravenous contrast. This CT exam was performed using one or more of the following dose reduction techniques: automated exposure control, adjustment of the mA and/or kV according to patient size, and/or use of iterative reconstruction technique. CONTRAST: Oral and amp; IV Gastrografin and amp; 100mL Isovue-300. RADIATION DOSE: CTDIvol = 19.91 mGy, DLP = 1473.14 mGy-cm COMPARISON: No relevant prior studies available. FINDINGS: LOWER THORAX: Presumed stents in left circumflex coronary artery. Lung bases are clear. No cardiomegaly. No significant pericardial effusion. ABDOMEN: LIVER: Unremarkable. Homogeneous. No focal mass. GALLBLADDER AND BILE DUCTS: Unremarkable. No calcified gallstones. No gallbladder distention or wall edema. No intra- or extrahepatic biliary ductal dilation. PANCREAS: Unremarkable. No focal cystic or solid mass. SPLEEN: Mildly elongated or enlarged spleen, 14.8 cm craniocaudal. ADRENALS: Unremarkable. No nodules. KIDNEYS AND URETERS: 3.3 mm nonobstructing stone in the left mid kidney. Mild left hydroureteronephrosis to the level of a 3.1 mm x 3.3 mm x 4.9 mm stone in the proximal-mid left ureter, at the level of L4. Left renal pelvis is 1.2 cm AP, proximal left ureter roughly 6 mm. Mild left perinephric soft tissue stranding and slight fluid consistent with acute obstruction. At least 1 presumed cyst of each kidney, the largest on the right measuring 2.3 cm maximum diameter. Normal renal size and position. STOMACH AND BOWEL: Unremarkable. No stomach or bowel distention. No focal inflammatory change. PELVIS: APPENDIX: Normal appendix is best seen on sagittal images. BLADDER: Unremarkable. REPRODUCTIVE: Unremarkable as visualized. No mass. ABDOMEN and PELVIS: INTRAPERITONEAL SPACE: Unremarkable. No ascites or other fluid collection. No free air. BONES/JOINTS: Unremarkable. No suspicious lytic or blastic abnormality. SOFT TISSUES: Surgical changes in the inguinal regions and lower abdominal wall. No discrete abdominal or pelvic wall hernia. VASCULATURE: See above. LYMPH NODES: Unremarkable. No enlarged lymph nodes. OTHER FINDINGS: Mild annular disc bulges lower lumbar levels. CT/Abdomen/Pelvis WITH Contrast IMPRESSION: 1. Left nephrolithiasis. Mild left hydroureteronephrosis to the level of a 5 mm x 3 mm stone in the proximal-mid left ureter. Slight left perinephric fluid and soft tissue stranding and mild delayed phase enhancement of the left kidney compared to the right, findings consistent with acute ureter obstruction. 2. No other acute findings. Postoperative changes. Minimal degenerative spine changes. Presumed coronary artery stents. Electronically Signed: Kari Lara MD at 1:54 EST ,
[2023-08-23] MEDS: Morphine 4 MG/ML Syringe IV (22:35)
[2023-08-23] MEDS: 0.9% Normal Saline (1000mL) 1,000 ML 1000 ML IV (22:35)
[2023-08-23] MEDS: Ondansetron 4 MG/2 ML Vial IV (22:35)
[2023-08-23 22:39] VITALS: BMI 27.6
[2023-08-23 22:39] LABS: Absolute Neutrophil Count 7.9 X10^3/uL (2.0-7.7); Basophil# 0.09 X10^3/uL; Basophil% 0.8 % (0-1); Eosinophil# 0.14 X10^3/uL; Eosinophils% 1.2 % (0-5); Hematocrit 41.1 % (40-54); Hemoglobin 13.7 g/dL (13.0-16.5); Lymphocyte % 20.3 % (19-41); Mean Corp Hgb Conc 33.3 g/dL (32-36); Mean Corpuscular Hgb 28.2 pg (27.0-32.0); Mean Corpuscular Volume 84.6 fL (80-94); Mean Platelet Vol. 11.9 fl (6.2-12.0); Monocyte# 0.79 X10^3/uL; NRBC Flagged by Analyzer 0 % (0-5); Neutrophil # 7.88 X10^3/uL (2.7-7.7); Neutrophil % 69.6 % (47-70); Platelet Count 200 K/mm3 (150-450); RBC Distribution Width CV 13.3 % (11.6-14.6); Red Blood Count 4.86 M/mm3 (4.6-6.2); White Blood Count 11.3 K/mm3 (4.4-11.0)
[2023-08-23 22:41] VITALS: BMI 27.6
[2023-08-23 22:51] LABS: International Normalized Ratio 0.9; Prothrombin Time (Protime)PT. 12.5 SECONDS (11.7-14.9)
[2023-08-23 22:52] LABS: Partial Thromboplast Time 25.4 Seconds (24.1-36.2)
[2023-08-23 23:00] LABS: ALB/GLOB Ratio 1.2 RATIO (0.9-2.4); AST(SGOT) 30 U/L (15-37); Alanine Aminotransfer ALT/SGPT 51 U/L (16-61); Alkaline Phosphatase 73 U/L (45-117); Anion Gap 5 (5-15); BUN 20 mg/dL (7-18); BUN/Creat Ratio 17.1 RATIO (10-20); Calcium,Total 9.2 mg/dL (8.5-10.1); Chloride 105 mmol/L (98-107); Creatinine, Serum 1.17 mg/dL (0.70-1.30); EST Glomerular Filtration Rate 69 mL/min (>60); Est Glom Filt Rate - Afr Amer 84 mL/min (>60); Estimated Creatinine Clearance 86.27 ml/min; Globulin 3.2 g/dL (2.2-4.2); Glucose 190 mg/dL (74-106); Potassium 3.6 mmol/L (3.5-5.1); Protein, Total 7.2 g/dL (6.4-8.2); Sodium Level 140 mmol/L (136-145)
[2023-08-24] MEDS: Morphine 4 MG/ML Syringe IV (00:02)
[2023-08-24] MEDS: Ondansetron 4 MG/2 ML Vial IV (00:02)
[2023-08-24 00:15] LABS: Bacteria 0 SEEN /hpf (None Seen); Mucous, Urine 0 SEEN /hpf (<or=2+)
[2023-08-24 00:22] LABS: Color, Urine Yellow (Yellow); Glucose, Dipstick 50 mg/dl (Normal); Ketone-Dipstick Negative (Negative); Leukocyte Esterase-Dipstick 25 /ul (Negative); Nitrite-Dipstick Negative (Negative); Occult Blood-Urine 250 /ul (Negative); Protein-Dipstick 30 mg/dl (Negative); Specific Gravity, Urine 1.015 (1.002-1.030); Urine Bilirubin Dipstick Negative (Negative); Urine Clarity Sl. Cloudy (Clear); Urine Urobilinogen Normal (Normal)
[2023-08-24 00:31] LABS: Red Blood Cells-Urine 50-100 SEEN /hpf (0-5); White Blood Cells 5-10 SEEN /hpf (0-5)
[2023-08-24 00:32] LABS: Squamous Epithelial Cells - UA 0-5 SEEN /hpf (0-5)
== END 2023-08-24 03:06 | disposition home or self-care (01) ==
PROVIDERS: Emergency Provider Emergency Medicine; Visit Provider Emergency Medicine
DX: N23 Unspecified renal colic (principal); N13.2 Hydronephrosis with renal and ureteral calculous obstruction; W19.XXXA Unspecified fall, initial encounter; Z87.891 Personal history of nicotine dependence; Z95.5 Presence of coronary angioplasty implant and graft
CPT/HCPCS: 74177; 80053; 81001; 85025; 85610; 85730; 96374; 96375; 96376; 99283; J7030; Q9967; A4216; J2405

== ENCOUNTER → 2023-10-23 | Outpatient (CLI) | payer OTHER, SELFPAY ==
--- NOTE | 2023-10-23 08:22 | US_ITS ---
STUDY: ABDOMINAL ULTRASOUND - RIGHT UPPER QUADRANT REASON FOR VISIT: Male, 53 years old ELEVATED LIVER ENZYMES TECHNIQUE: Ultrasound evaluation of the right upper quadrant was performed with real-time and static lock-scale imaging. TECHNICAL QUALITY: Adequate. COMPARISON: None. FINDINGS: Liver: The liver measures 15.1 cm. There is increased echogenicity consistent with fatty infiltration. The bile ducts are within normal limits. There is hepatic color flow. The direction of portal flow is hepatopetal. There is no demonstrated mass lesion. Gallbladder: Normal distended gallbladder. The gallbladder wall measures 1.5 mm. There is a negative sonographic Morocho''s sign. There is no pericholecystic fluid. There are no gallstones. Common Bile Duct (C.B.D.): The common bile duct measures 4.3 mm. Pancreas: Normal size of the head, body and tail of the pancreas. There is normal echogenicity of the pancreas. There is no demonstrated pancreatic mass or cyst. Right Kidney: Normal size of the right kidney. The right kidney measures 11.3 cm x 6.9 cm x 7.5 cm. Normal renal cortex. The right cortex measures 1.9 cm. There is a 2.2 cm x 3 cm x 2.5 cm cyst in the upper pole of the right kidney. There is no right hydronephrosis. US/Liver IMPRESSION: Fatty infiltration of the liver. Right renal cyst. Electronically Signed: Washington Owens MD at 15:35 EST ,
--- OUTSIDE RECORDS SUMMARY | 2023-10-23 08:35 | XMS RPT_ITS | CCD ---
Author Name Unknown Address [email or web address] [place] [address] Organization [facility] Care Team Providers Care Hydrotherapist Name Role Phone Dayna Quintanilla Unavailable Unavailable Hao Cooper Unavailable Unavailable Alec Painting Unavailable Unavailable Krishna Chavez Unavailable Unavailable Hao Cooper Unavailable Unavailable Unavailable SHERRELL ASENCIO Attending Unavailable ANABEL GUZMAN Primary Care Unavailable SELF, SELF Referring Unavailable Dayna Bush MD Unavailable [phone] Estela Fontenot MD Unavailable Unavailable Unavailable Ashwini Chaves MD Unavailable [facility] Primary Care Physician Dayna Bush MD Unavailable Estela Fontenot MD Unavailable Ashwini Chaves MD Unavailable PROVIDER, UNKNOWN Admitting Unavailable ESTELA FONTENOT Referring Unavailable PROVIDER, UNKNOWN Attending Unavailable PROVIDER, UNKNOWN Admitting Unavailable ESTELA FONTENOT Referring Unavailable PROVIDER, UNKNOWN Attending Unavailable PROVIDER, UNKNOWN Attending Unavailable PROVIDER, UNKNOWN Admitting Unavailable ESTELA FONTENOT Referring Unavailable Hao Cooper MD Primary Care Provider [facility] Primary Care Unavailable JUAN F LAL Attending Unavailable [facility] Primary Care Unavailable MICHEL AYALA MD Consulting Unavailable JUAN F LAL Admitting Unavailable JUAN F LAL Attending Unavailable [facility] Primary Care Unavailable TALI GAMBOA, DR CATALINO ETIENNE Attending HAO Pedroza Primary Care Unavailable KRISHNA CHAVEZ Referring Unavailable HAO COOPER Primary Care Unavailable Allison, Dr. Hao Munoz Primary Care Unavaila sharon ALMEIDA, JOSÉ ANTONIO Referring Unavailable Rain, Dr. Td Payton Attending Un available Allison, Dr. Hao Munoz Referring Unavaila ble KATHY, KRISHNA Attending Unavailable Allison, Dr. Hao Munoz Primary Care Unavaila ble Allison, Dr. Hao Munoz Primary Care Unavaila sharon ALMEIDA, JOSÉ ANTONIO Attending Unavailable JUAN PABLO, JOSÉ ANTONIO Referring Unavailable Allison, Dr. Hao Munoz Primary Care Unavaila ble JUAN PABLO, JOSÉ ANTONIO Referring Unavailable Rain, Dr. Td Payton Attending Un available HAO COOPER S Primary Care Unavailable ISMAEL SHAHID MD Referring Unavailable ZEHRA GAMBOA, ISMAEL Attending Unavailable ALLISON, HAO S Primary Care Unavailable ZEHRA GAMBOA, ISMAEL Referring Unavailable ALLISON, HAO S Primary Care Unavailable ZEHRA GAMBOA, ISMAEL Attending Unavailable ZEHRA GAMBOA, ISMAEL Referring Unavailable ALLISON, HAO S Primary Care Unavailable ZEHRA GAMBOA, ISMAEL Attending Unavailable ISMAEL SHAHID MD Referring Unavailable ZEHRA GAMBOA, ISMAEL Attending Unavailable HAO COOPER Primary Care Unavailable ISMAEL SHAHID MD Referring Unavailable ZEHRA GAMBOA, ISMAEL Attending Unavailable ALLISON, HAO S Primary Care Unavailable FEIGHAN, DAYNA E Referring Unavailable ALLISONHAO SANTAMARIA Primary Care Unavailable FEISOLITARIOAN, DAYNA E Attending Unavailable HAO COOPER Primary Care Unavailable KRISHNA CHAVEZ Attending Unavailable ALLISONHAO SANTAMARIA Primary Care Unavailable FEIGHAN, DAYNA E Attending Unavailable ALLISONHAO SANTAMARIA Primary Care Unavailable FEIGHAN, DAYNA E Referring Unavailable HAO COOPER Primary Care Unavailable KRISHNA CHAVEZ Admitting Unavailable KRISHNA CHAVEZ Attending Unavailable HAO COOPER Primary Care Unavailable HAO COOPER Primary Care Unavailable Allergies Allergy Classification Reported Allergen(s) Allergy Type Date of Onset Reaction(s) Facility Aspirin (1 source) Aspirin; Translations: [aspirin] Drug Allergy [facility] [facility] Work Phone: (20 sources) Aspirin; Translations: [aspirin] Drug Allergy 3 Other [facility] (7 sources) atorvastatin; Translations: [ATORVASTATIN] Drug Allergy 1 Myalg[facility] (7 sources) Salicylic Acid; Translations: [SALICYLATES] Drug Allergy 5 [facility] (7 sources) Simvastatin; Translations: [SIMVASTATIN] Propensity to adverse reactions to drug 1 Myalgias [facility] Medications Current Medications Medication Drug Class(es) Dates Sig (Normalized) Sig (Original) albuterol 0.83 mg/ml inhalation solution (1 source) beta2-Adrenergic Agonist Start: 09-11-2023 albuterol 2.5 mg /3 mL (0.083 %) nebulizer solution 2.5 mg aspirin 81 mg delayed release oral tablet (15 sources) Platelet Aggregation Inhibitor, Nonsteroidal Anti-inflammatory Drug Start: 06-06-2020 Ecotrin Adult Low Strength 81 mg oral delayed release tablet Dose : 81 mg = 1 tab(s), Oral, qAM, # 30 tab(s), 11 Refill(s), Pharmacy: [id number], 190.5, cm, 06/04/20 14:04:00 EDT, Height, kg, 06/04/20 14:04:00 EDT, Dosing Weight Start Date: 06/06/20 Status: Ordered calcium chloride 0.0014 meq/ml / potassium chloride 0.004 meq/ml / sodium chloride 0.103 meq/ml / sodium lactate 0.028 meq/ml injectable solution (2 sources) Start: 09-11-2023 lactated Ringer's infusion cholecalciferol 0.125 mg oral capsule (20 sources) Vitamin D cholecalciferol (Vitamin D-3) 125 MCG (5000 UT) capsule Take 1 capsule (125 mcg) by mouth. 0 Active Completed/Discontinued Medications Medication Drug Class(es) Dates Sig (Normalized) Sig (Original) acetaminophen 325 mg / HYDROcodone bitartrate 5 mg oral tablet (8 sources) Opioid Agonist Start: 11-29-2022 HYDROcodone-Acetamin ophen 5-325 MG Oral Tablet Quantity: 42 Refills: 0 Ordered: 29-Nov-2022 DO Start : 29-Nov-2022 Active 24 hr cyclobenzaprine hydrochloride 15 mg extended release oral capsule (18 sources) Muscle Relaxant Start: 04-25-2022 take 1 capsule by mouth every twenty-four hours Cyclobenzaprine HCl ER 15 MG Oral Capsule Extended Release 24 Hour Quantity: 30 Refills: 0 Ordered: 26-Apr-2022 DO Start : 26-Apr-2022 Active doxycycline hyclate 100 mg oral tablet (8 sources) Tetracycline-cl ass Drug Start: 06-20-2022 Doxycycline Hyclate 100 MG Oral Tablet Quantity: 20 Refills: 0 Ordered: 20-Jun-2022 DO Start : 20-Jun-2022 Active Problems Active Problems Problem Classification Problem Date Documented Date Episodic/Chronic Abdominal hernia (19 sources) Unspecified abdominal hernia without obstruction or gangrene; Translations: [Hernia] Episodic Anxiety disorders (6 sources) Generalized anxiety disorder; Translations: [Generalized anxiety disorder] Onset: 4 09-17-2014 Chronic Chronic ulcer of skin (6 sources) Ulcer of lower extremity; Translations: [Non-pressure chronic ulcer of unspecified part of unspecified lower leg with unspecified severity] Onset: 1 03-24-2012 Chronic Coronary atherosclerosis and other heart disease (5 sources) Coronary arteriosclerosis; Translations: [Coronary atherosclerosis] 06-28-2020 Chronic Disorders of lipid metabolism (4 sources) Dyslipidemia; Translations: [Hyperlipidemia] 07-07-2020 Chronic Essential hypertension (4 sources) Hypertensive disorder; Translations: [Essential hypertension] 07-07-2020 Chronic Fracture of lower limb (20 sources) Fracture of tibia; Translations: [Closed fracture of unspecified part of tibia alone] Onset: 1 03-24-2012 Episodic Infective arthritis and osteomyelitis (except that caused by tuberculosis or sexually transmitted disease) (6 sources) Acute osteomyelitis of lower leg; Translations: [Other acute osteomyelitis, unspecified tibia and fibula] Onset: 1 03-24-2012 Chronic Joint disorders and dislocations; trauma-related (20 sources) Traumatic arthropathy-ankle; Translations: [Traumatic arthropathy, ankle and foot] Onset: 3 07-08-2023 Chronic Open wounds of extremities (8 sources) Traumatic transtibiofibular amputation; Translations: [Complete traumatic amputation at level between knee and ankle, unspecified lower leg, initial encounter] Onset: 1 07-11-2016 Chronic Other acquired deformities (1 source) Acquired deformity of lower leg; Translations: [Other specified acquired deformities of right lower leg] Episodic Other bone disease and musculoskeletal deformities (2 sources) History of amputation of leg through tibia and fibula; Translations: [History of below knee amputation] Chronic Other bone disease and musculoskeletal deformities (20 sources) Amputee; Translations: [Other acquired deformity of other parts of limb] Onset: 3 07-05-2023 Chronic Other bone disease and musculoskeletal deformities (20 sources) History of amputation of right leg through femur; Translations: [Above knee amputation status] Onset: 3 07-05-2023 Chronic Other bone disease and musculoskeletal deformities (3 sources) History of disarticulation of right knee; Translations: [Acquired absence of right leg above knee] Chronic Other bone disease and musculoskeletal deformities (1 source) Amputated right lower limb above knee; Translations: [Acquired absence of right leg above knee] Chronic Other bone disease and musculoskeletal deformities (1 source) Acquired absence of right leg above knee; Translations: [Acquired absence of right leg above knee (HCC)] Onset: 2 Chronic Other bone disease and musculoskeletal deformities (2 sources) Amputee; Translations: [Amputee] Episodic Other connective tissue disease (20 sources) Lateral epicondylitis of right humerus; Translations: [Lateral epicondylitis] Onset: 2 07-31-2022 Episodic Other connective tissue disease (20 sources) Lateral epicondylitis of left humerus; Translations: [Lateral epicondylitis] Onset: 2 07-31-2022 Episodic Other connective tissue disease (2 sources) Peroneal tendinitis; Translations: [Peroneal tendinitis, unspecified leg] 07-08-2023 Episodic Other connective tissue disease (2 sources) Peroneal tendinitis, unspecified leg; Translations: [Peroneal tendinitis, unspecified leg] Onset: 3 Episodic Other injuries and conditions due to external causes (20 sources) Injury of left foot; Translations: [Knee, leg, ankle, and foot injury] Onset: 3 07-05-2023 Episodic Other nervous system disorders (18 sources) Radial tunnel syndrome; Translations: [Lesion of radial nerve] Onset: 3 07-05-2023 Chronic Other nervous system disorders (3 sources) Phantom limb syndrome with pain; Translations: [Phantom limb syndrome with pain] Chronic Other nervous system disorders (1 source) Complex regional pain syndrome type I of right lower limb; Translations: [Complex regional pain syndrome I of right lower limb] Chronic Other nervous system disorders (1 source) Phantom limb syndrome with pain; Translations: [Phantom limb syndrome with pain (HCC)] Onset: 2 Chronic Other nervous system disorders (1 source) Complex regional pain syndrome I of right lower limb; Translations: [Complex regional pain syndrome i of right lower limb] Onset: 2 Chronic Other nervous system disorders (6 sources) Lesion of radial nerve, left upper limb; Translations: [Lesion of radial nerve, left upper limb] Onset: 3 Chronic Other nervous system disorders (2 sources) Complex regional pain syndrome I of unspecified lower limb; Translations: [Complex regional pain syndrome i of unspecified lower limb] Onset: 3 Chronic Other nervous system disorders (20 sources) Paresthesia of upper limb; Translations: [Disturbance of skin sensation] Onset: 3 07-05-2023 Episodic Other non-traumatic joint disorders (18 sources) Pain in elbow; Translations: [Pain in joint, upper arm] Episodic Other non-traumatic joint disorders (1 source) Arthralgia of the ankle and/or foot; Translations: [Pain in left ankle and joints of left foot] 07-04-2023 Episodic Other screening for suspected conditions (not mental disorders or infectious disease) (3 sources) Inferior ST segment elevation 06-28-2020 Episodic Residual codes; unclassified (6 sources) H/O Spinal surgery; Translations: [Presence of other specified functional implants] Onset: 7 10-22-2016 Chronic Spondylosis; intervertebral disc disorders; other back problems (20 sources) Backache; Translations: [Backache, unspecified] Episodic Past or Other Problems Problem Classification Problem Date Documented Date Episodic/Chronic Complication of device; implant or graft (6 sources) Mechanical complication of internal orthopedic device, implant AND/OR graft; Translations: [Other mechanical complication of other internal orthopedic devices, implants and grafts, initial encounter] Onset: 09-17-2014 07-24-2021 Episodic Complications of surgical procedures or medical care (2 sources) Other complications of amputation stump; Translations: [Other complications of amputation stump] Onset: 11-29-2022 Episodic Crushing injury or internal injury (6 sources) Crushing injury of lower limb; Translations: [Crushing injury of unspecified lower leg, initial encounter] Onset: 05-20-2011 03-24-2012 Episodic Joint disorders and dislocations; trauma-related (6 sources) Open dislocation of ankle; Translations: [Dislocation of unspecified ankle joint, initial encounter] Onset: 05-20-2011 03-24-2012 Episodic Other connective tissue disease (6 sources) Pain in left foot; Translations: [Pain in left foot] Onset: 12-12-2020 12-12-2020 Episodic Other injuries and conditions due to external causes (6 sources) Compartment syndrome of lower limb; Translations: [Traumatic compartment syndrome of unspecified lower extremity, initial encounter] Onset: 05-20-2011 03-24-2012 Episodic Other nervous system disorders (9 sources) Abnormal gait; Translations: [Unspecified abnormalities of gait and mobility] Onset: 03-29-2012 Episodic Other nervous system disorders (1 source) Unspecified abnormalities of gait and mobility; Translations: [Unspecified abnormalities of gait and mobility] Onset: 05-28-2022 Episodic Other non-traumatic joint disorders (6 sources) Ankle pain; Translations: [Pain in left ankle and joints of left foot] Onset: 12-12-2020 12-12-2020 Episodic Other non-traumatic joint disorders (2 sources) Pain in left ankle and joints of left foot; Translations: [Pain in left ankle and joints of left foot] Onset: 07-08-2023 Episodic Skin and subcutaneous tissue infections (12 sources) Cellulitis and abscess of lower limb; Translations: [Cellulitis of unspecified part of limb] Onset: 05-20-2011 03-24-2012 Episodic Sprains and strains (18 sources) Injury of hip region; Translations: [Sprain and strain of unspecified site of hip and thigh] Onset: 09-17-2014 09-17-2014 Episodic Unclassified (2 sources) Injury of left foot; Translations: [Injury of foot, left] Unclassified (2 sources) History of amputation of right leg through femur; Translations: [History of right above knee amputation] Unclassified (2 sources) Patient encounter status; Translations: [Encounter for preoperative examination for general surgical procedure] NEGATED: Highlighted row has not occurred!Residual codes; unclassified (4 sources) Disease Episodic Results Test Name Value Interpretation Reference Range Facil ity Vital Signs Date Time Vital Sign Value Performing Clinician Facility 10-01-2023 10:03-0500 Body height 190.5 cm Krishna Chavez MD Work Phone: [facility] 10-01-2023 10:03-0500 Body mass index (BMI) [Ratio] 27.37 kg/m2 Krishna Chavez MD Work Phone: [facility] 10-01-2023 10:03-0500 Body weight 99.34 kg Krishna Chavez MD Work Phone: [facility] 09-11-2023 09:55-0500 Body temperature 97.2 [degF] Krishna Chavez MD Work Phone: [facility] 09-11-2023 09:55-0500 Diastolic blood pressure 84 mm[Hg] Krishna Chavez MD Work Phone: [facility] 09-11-2023 09:55-0500 Heart rate 81 /min Krishna Chavez MD Work Phone: [facility] 09-11-2023 09:55-0500 Respiratory rate 12 /min Krishna Chavez MD Work Phone: [facility] 09-11-2023 09:55-0500 SaO2% (BldA) [Mass fraction] 97 % Krishna Chavez MD Work Phone: [facility] 09-11-2023 09:55-0500 Systolic blood pressure 133 mm[Hg] Krishna Chavez MD Work Phone: [facility] 09-11-2023 06:48-0500 Body height 190.5 cm Krishna Chavez MD Work Phone: [facility] 09-11-2023 06:48-0500 Body mass index (BMI) [Ratio] 27.47 kg/m2 Krishna Chavez MD Work Phone: [facility] 09-11-2023 06:48-0500 Body weight 99.7 kg Krishna Chavze MD Work Phone: [facility] 07-08-2023 09:28-0400 Body height 190.5 cm Dayna Bush MD Work Phone: [facility] 07-08-2023 09:28-0400 Body mass index (BMI) [Ratio] 28.12 kg/m2 Dayna Bush MD Work Phone: [facility] 07-08-2023 09:28-0400 Body weight 102.06 kg Dayna Bush MD Work Phone: [facility] 11-30-2022 09:02-0500 Heart rate 72 /min JUAN F LAL MD [facility] 11-30-2022 08:09-0500 Body temperature 97.7 [degF] JUAN F LAL MD [facility] 11-30-2022 08:09-0500 Diastolic Blood Pressure Non-Invasive 66 1 JUAN F LAL MD [facility] 11-30-2022 08:09-0500 Heart rate 85 /min JUAN F LAL MD [facility] 11-30-2022 08:09-0500 Respiratory rate 18 /min JUAN F LAL MD [facility] 11-30-2022 08:09-0500 Systolic Blood Pressure Non-Invasive 95 1 JUAN F LAL MD [facility] 11-30-2022 03:36-0500 Body temperature 97.88 [degF] JUAN F LAL MD [facility] 11-30-2022 03:36-0500 Diastolic Blood Pressure Non-Invasive 63 1 JUAN F LAL MD [facility] 11-30-2022 03:36-0500 Heart rate 52 /min JUAN F LAL MD [facility] 11-30-2022 03:36-0500 Respiratory rate 17 /min JUAN F LAL MD [facility] 11-30-2022 03:36-0500 Systolic Blood Pressure Non-Invasive 90 1 JUAN F LAL MD [facility] 11-29-2022 23:33-0500 Body temperature 97.88 [degF] UJAN F LAL MD [facility] 11-29-2022 23:33-0500 Diastolic Blood Pressure Non-Invasive 59 1 JUAN F LAL MD [facility] 11-29-2022 23:33-0500 Heart rate 73 /min JUAN F LAL MD [facility] 11-29-2022 23:33-0500 Respiratory rate 18 /min JUAN F LAL MD [facility] 11-29-2022 23:33-0500 Systolic Blood Pressure Non-Invasive 87 1 JUAN F LAL MD [facility] 11-29-2022 16:28-0500 Heart rate 74 /min JUAN F LAL MD [facility] 11-29-2022 14:31-0500 Heart rate 71 /min JUAN F LAL MD [facility] 11-29-2022 13:20-0500 Body height 190.5 cm JUAN F LAL MD [facility] 11-29-2022 13:20-0500 Body weight 90.1 kg JUAN F LAL MD [facility] 11-29-2022 13:20-0500 Body weight 24.83 kg/m2 JUAN F LAL MD [facility] 11-29-2022 13:18-0500 Heart rate 61 /min JUAN F LAL MD [facility] 11-29-2022 12:50-0500 Body temperature 97.52 [degF] JUAN F LAL MD [facility] 11-29-2022 12:50-0500 Heart rate 59 /min JUAN F LAL MD [facility] 11-29-2022 12:24-0500 Body temperature 97.52 [degF] JUAN F LAL MD [facility] 11-29-2022 12:24-0500 Heart rate 62 /min JUAN F LAL MD [facility] 11-29-2022 12:24-0500 Mean blood pressure 76 mm[Hg] JUAN F LAL MD [facility] 11-29-2022 12:15-0500 Mean blood pressure 81 mm[Hg] JUAN F LAL MD [facility] 11-29-2022 11:50-0500 Mean blood pressure 77 mm[Hg] JUAN F LAL MD [facility] 11-29-2022 10:50-0500 Body temperature 97.16 [degF] JUAN F LAL MD [facility] 11-29-2022 10:45-0500 Respiratory Rate - Anes 16 br/min JUAN F LAL MD [facility] 11-29-2022 10:40-0500 Respiratory Rate - Anes 21 br/min JUAN F LAL MD [facility] 11-29-2022 10:35-0500 Body temperature 96.69 [degF] JUAN F LAL MD [facility] 11-29-2022 10:35-0500 Respiratory Rate - Anes 18 br/min JUAN F LAL MD [facility] 11-29-2022 10:30-0500 Body temperature 96.55 [degF] JUAN F LAL MD [facility] 11-29-2022 10:25-0500 Body temperature 96.58 [degF] JUAN F LAL MD [facility] 11-29-2022 08:03-0500 Body height 190.5 cm JUAN F LAL MD [facility] 11-29-2022 08:03-0500 Body weight 90.1 kg JUAN F LAL MD [facility] 11-15-2022 10:37-0500 Blood Pressure Cuff Size JUAN F LAL MD [facility] 11-15-2022 10:37-0500 Blood Pressure Location JUAN F LAL MD [facility] 11-15-2022 10:37-0500 Blood Pressure Method JUAN F LAL MD [facility] 11-15-2022 10:37-0500 Body height 187 cm JUAN F LAL MD [facility] 11-15-2022 10:37-0500 Body temperature 98.78 [degF] JUAN F LAL MD [facility] 11-15-2022 10:37-0500 Body weight 100.1 kg JUAN F LAL MD [facility] 11-15-2022 10:37-0500 Diastolic Blood Pressure Non-Invasive 91 1 JUAN F LAL MD [facility] 11-15-2022 10:37-0500 Heart rate 78 /min JUAN F LAL MD [facility] 11-15-2022 10:37-0500 Systolic Blood Pressure Non-Invasive 146 1 JUAN F LAL MD [facility] 06-19-2022 08:30-0400 Diastolic blood pressure 86 mm[Hg] Ashwini Chaves MD Work Phone: [facility] 06-19-2022 08:30-0400 Heart rate 71 /min Ashwini Chaves MD Work Phone: [facility] [facility] 06-19-2022 08:30-0400 Systolic blood pressure 113 mm[Hg] [facility] 04-25-2022 10:38-0400 Diastolic blood pressure 77 mm[Hg] Estela Fontenot MD [facility] 04-25-2022 10:38-0400 Heart rate 71 /min Estela Fontenot MD [facility] 04-25-2022 10:38-0400 Systolic blood pressure 108 mm[Hg] [facility]ot [facility] En[facility]ters Encounter Date Encounter Type Care Provider Facility Start: 10-10-2023 End: 10-10-2023 ambulatory ISMAEL SHAHID MD Facility:[facility] Start: 10-01-2023 End: 10-02-2023 ambulatory KRISHNA CHAVEZ [facility] Start: 10-01-2023 End: 10-01-2023 Postop follow up visit related to original px Krishna Chavez MD Work Phone: [facility] Procedures Date Procedure Procedure Detail Performing Clinician Start: 09-11-2023 DISCHARGE PATIENT KRISHNA GARCIAONE Start: 09-11-2023 ADULT DISCHARGE DIET KRISHNA CHAVEZ Start: 09-11-2023 DISCHARGE ACTIVITY KRISHNA CHAVEZ Start: 09-11-2023 NOTIFY PROVIDER (DO NOT PROMPT FOR PARAMETERS) KRISHNA CHAVEZ Start: 09-09-2023 ECG 12-LEAD HAO HICKMANMAN Start: 09-09-2023 Ecg routine ecg w/least 12 lds trcg only w/o i&r Krishna Chavez MD Work Phone: Start: 09-09-2023 Basic metabolic 2000 panel - Serum or Plasma HAO ALLISON Start: 09-09-2023 CBC W Auto Differential panel - Blood HAO COOPER Start: 08-21-2023 MR ANKLE LEFT WO IV CONTRAST DAYNA BUSH Start: 08-21-2023 Mri any jt lower extrem w/o contrast matrl Dayna Bush MD Work Phone: Start: 07-08-2023 XR ANKLE LEFT 3+ VIEWS DAYNA BUSH Start: 07-05-2023 History of amputation of leg through tibia and fibula History of below knee amputation Dayna Bush MD Work Phone: Start: 06-06-2020 Echocardiography JUAN F LAL MD Plan of Treatment Date Care Activity Detail Author Start: 03-29-2027 Lipid panel Cholesterol [facility] Start: 10-01-2023 End: 10-01-2023 Patient encounter procedure 10/01/2023 10:00 AM EST Office Visit James [facility] [address] [id number] Krishna Chavez MD [address] [place] [address] James Harris Start: 09-11-2023 End: 09-11-2023 Admission to same day surgery center 09/11/2023 9:15 AM EST - 09/11/2023 10:30 AM EST Surgery [facility] [place] [facility] [place] [address] [address] Krishna Chavez MD [address] [place] [address] Left upper extremity radial nerve decompression / 45 minutes [34303 (CPT )] [facility] [place] Immunizations Immunization Date Immunization Notes Care Provider Fa cili 04-10-2021 [facility] SARS-COV-2 (COVID-19) vaccine, vector non-replicating, recombinant spike protein-Ad26, preservative free, 0.5 mL ([id number]) Estela Fontenot MD Work Phone: [facility] 05-20-2011 tetanus toxoid, redu jose diphtheria toxoid, and acellular pertussis vaccine, adsorbed Estela Fontenot MD Work Phone: [facility] 09-30-2005 diphtheria and tetan us toxoids, adsorbed for pediatric use Estela Fontenot MD Work Phone: [facility] 02-28-1997 diphtheria and tetan us toxoids, adsorbed for pediatric use Estela Fontenot MD Work Phone: [facility] Payers Date Payer Category Payer Medicare [id number] 2022 Unknown [id number] 2021 Medicare AETNA MEDICARE P FFS AETNA MEDICARE [place]/HMO/PFFS [id number] 2021-Present [phone] [address] [place] [address] Medicare [id number] 2021 Medicare [id number] 2020 Medicaid MEDICAID FFS-TRA DITIONAL MEDICAID [id number] 2020-Present [address] [place] [address] Medicaid [id number] 2020 Medicaid [id number] 2011 Unknown 2011 Unknown [id number] 2011 Unknown [id number] 2011 Unknown [id number] 2011 Unknown [id number] 2011 Worker's Compensation 1.2.84 [id number] .[id number] 1969 Unknown [id number] 2.16.840.1.744811.3.579.2.59 4 1969 Unknown [id number] 2.16.840.1.223375.3.579.2.73 2 1969 Unknown [id number] 2.16.840.1.962818.3.579.2.73 2 1969 Unknown [id number] 2.16.840.1.427928.3.579.2.73 2 1969 Unknown [id number] 2.16.840.1.531219.3.579.2.62 7 1969 Unknown [id number] 2.16.840.1.964955.3.579.2.62 7 1969 Unknown [id number] 2.16.840.1.483457.3.579.2.62 7 1969 Unknown [id number] 2.16.840.1.617206.3.579.2.12 45 1969 Unknown [id number] 2.16.840.1.533162.3.579.2.12 45 1969 Unknown [id number] 2.16.840.1.905294.3.579.2.35 6 1969 Unknown [id number] 2.16.840.1.547677.3.579.2.35 6 1969 Unknown [id number] 2.16.840.1.654528.3.579.2.35 6 1969 Unknown [id number] 2.16.840.1.215866.3.579.2.35 6 1969 Unknown [id number] 2.16.840.1.075815.3.579.2.15 9 1969 Unknown [id number] 2.16.840.1.601780.3.579.2.15 9 1969 Unknown [id number] 2.16.840.1.481231.3.579.2.15 9 1969 Unknown [id number] 2.16.840.1.808816.3.579.2.15 9 1969 Unknown [id number] 2.16.840.1.690520.3.579.2.15 9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 tunnel injection. He states that this did provide complete relief, however for short period time. He like discuss further treatment options. He continues to state that the pain along the lateral epicondyle is doing quite well.06/07/22: Patient returns today for left elbow radial tunnel injection. During his last visit, we discussed that his symptoms could be secondary to radial tunnel syndrome. Since that time, we have had authorization from [facility] to proceed with his injection. He presents today for the injection and denies any recent injuries.04/05/22: Patient returns today for reevaluation for elbow pain and for EMG results. Patient states that his symptoms have not improved since his last visit. He continues to localize his symptoms along the dorsal aspect of his forearm. In regards to the lateral epicondyle and common extensor tendon, he feels as though this is pain-free without restriction. He is also complaining of weakness in the wrist as well.08/17/21: 61-year-old male presents with complaint of left lateral elbow pain. He did have bilateral common extensor tendon percutaneous tenotomy procedures. The right lateral elbow was performed on February 01, 2021, and the left lateral elbow was performed on March 15, 2021. Overall, he feels that he is doing quite well to this regard. However, he has developed forearm tingling and weakness that is become progressively worse of the past 2 months. He felt like this was slightly bothersome prior to the left lateral elbow percutaneous tenotomy, however has become progressively worse since that time. He states that he is having weakness with repetitive motions and wrist extension. He denies acute trauma, neck pain or stiffness. -Orthopaedics [facility] [id number] DO Work Phone: 04-11-2023 History of Present illness Narrative 04/11/23: Patient returns today for reevaluation for left forearm pain, weakness, and left elbow pain during his last visit, we did order a neuromuscular ultrasound. I did perform a radial tunnel injection for him on 06/07/2022. He felt that this worked well, however for short period time. Since his last visit, he did have a neuromuscular ultrasound and was given a formal diagnosis of radial tunnel syndrome. 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 His primary complaint at this time are aching and pain along the proximal forearm. This is associated with weakness and cramping along the dorsal aspect of his distal forearm with radiation into his wrist and hand. He presents today to discuss further treatment options.07/30/22: Patient returns today for reevaluation for left forearm weakness and pain. His last visit, we proceeded with a therapeutic and diagnostic radial tunnel injection. He states that this did provide complete relief, however for short period time. He like discuss further treatment options. He continues to state that the pain along the lateral epicondyle is doing quite well.06/07/22: Patient returns today for left elbow radial tunnel injection. During his last visit, we discussed that his symptoms could be secondary to radial tunnel syndrome. Since that time, we have had authorization from [facility] to proceed with his injection. He presents today for the injection and denies any recent injuries.04/05/22: Patient returns today for reevaluation for elbow pain and for EMG results. Patient states that his symptoms have not improved since his last visit. He continues to localize his symptoms along the dorsal aspect of his forearm. In regards to the lateral epicondyle and common extensor tendon, he feels as though this is pain-free without restriction. He is also complaining of weakness in the wrist as well.08/17/21: 61-year-old male presents with complaint of left lateral elbow pain. He did have bilateral common extensor tendon percutaneous tenotomy procedures. The right lateral elbow was performed on February 01, 2021, and the left lateral elbow was performed on March 15, 2021. Overall, he feels that he is doing quite well to this regard. However, he has developed forearm tingling and weakness that is become progressively worse of the past 2 months. He felt like this was slightly bothersome prior to the left lateral elbow percutaneous tenotomy, however has become progressively worse since that time. He states that he is having weakness with repetitive motions and wrist extension. He denies acute trauma, neck pain or stiffness. [facility] Work Phone: 04-11-2023 History of Present illness Narrative 04/11/23: Patient returns today for reevaluation for left forearm pain, weakness, and left elbow pain during his last visit, we did order a neuromuscular ultrasound. I did perform a radial tunnel injection for him on 06/07/2022. He felt that this worked well, however for short period time. Since his last visit, he did have a neuromuscular ultrasound and was given a formal diagnosis of radial tunnel syndrome. 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 His primary complaint at this time are aching and pain along the proximal forearm. This is associated with weakness and cramping along the dorsal aspect of his distal forearm with radiation into his wrist and hand. He presents today to discuss further treatment options.07/30/22: Patient returns today for reevaluation for left forearm weakness and pain. His last visit, we proceeded with a therapeutic and diagnostic radial tunnel injection. He states that this did provide complete relief, however for short period time. He like discuss further treatment options. He continues to state that the pain along the lateral epicondyle is doing quite well.06/07/22: Patient returns today for left elbow radial tunnel injection. During his last visit, we discussed that his symptoms could be secondary to radial tunnel syndrome. Since that time, we have had authorization from [facility] to proceed with his injection. He presents today for the injection and denies any recent injuries.04/05/22: Patient returns today for reevaluation for elbow pain and for EMG results. Patient states that his symptoms have not improved since his last visit. He continues to localize his symptoms along the dorsal aspect of his forearm. In regards to the lateral epicondyle and common extensor tendon, he feels as though this is pain-free without restriction. He is also complaining of weakness in the wrist as well.08/17/21: 61-year-old male presents with complaint of left lateral elbow pain. He did have bilateral common extensor tendon percutaneous tenotomy procedures. The right lateral elbow was performed on February 01, 2021, and the left lateral elbow was performed on March 15, 2021. Overall, he feels that he is doing quite well to this regard. However, he has developed forearm tingling and weakness that is become progressively worse of the past 2 months. He felt like this was slightly bothersome prior to the left lateral elbow percutaneous tenotomy, however has become progressively worse since that time. He states that he is having weakness with repetitive motions and wrist extension. He denies acute trauma, neck pain or stiffness. [facility] Work Phone: 12-19-2022 Telephone encounter Note Left voicemail for [facility] to process under [place] of Worker's [employer]. [facility] 12-19-2022 Miscellaneous Notes Left voicemail for [facility] to process under [place] of Worker's Compensation. This medication is covered through [place] of Worker's Compensation, not patient's prescription insurance benefits. Prior Authorization Team does not handle these prior authorizations. Please submit to Worker's Compensation for coverage determination. Thank you. documented in this encounter [facility] 12-12-2022 Telephone encounter Note This medication is covered through [place] of Worker's Compensation, not patient's prescription insurance benefits. Prior Authorization Team does not handle these prior authorizations. Please submit to Worker's Compensation for coverage determination. Thank you. [facility] 11-30-2022 Hospital Discharge instructions Patient Education 11/30/2022 13:48:43 Crutch Use, Adult, [id number] Crutch Use, Adult Crutches are used to take weight off of one of your legs or feet when you stand or walk. You may need crutches to help heal after an injury or procedure. It is important to use crutches that fit right. Your crutches fit right if: You can fit 2 or 3 fingers between your armpit and the crutch. You use your hands, not your armpits, to hold yourself up. Do not put your armpits on the crutches. This can damage the nerves in your shoulders, arms, back, armpits, and hands. It is important that a doctor has seen you use crutches the right way before you use them at home. How to use your crutches How you will use your crutches will depend on why you need them. Your doctor may tell you not to put weight on (not to support your weight with) your hurt leg (non weight-bearing). Or, your doctor may let you put (bear) some of your weight on the hurt leg (partial weight-bearing), but not all of your weight. Follow instructions from your doctor about weight-bearing. Do not put weight on your leg in an amount that causes pain. Walking 1.Stand on your good leg and lift both crutches at the same time. 2.Place the crutches one step-length in front of you. 3.Bring the good leg forward to meet the crutches or to land a little bit ahead of them. 4.Repeat. Going up steps If there is no handrail: 1.Step up with your good leg. 2.Step up with the crutches and your hurt leg. 3.Repeat. If there is a handrail: 1.Hold both crutches in one hand. 2.Place your other hand on the handrail. 3.Put your weight on your arms and lift your good leg up to the step. 4.Bring the crutches and the hurt leg up to that step. 5.Repeat. Going up steps on your butt If you do not feel steady on steps, you can go up steps on your butt. 1.Sit on the lowest step. Have your hurt leg out in front. Use your other hand to hold both crutches flat on the stairs. 2.Scoot your butt up to the next step. Use the free hand and your good leg to help you do this. Going down steps If there is no handrail: 1.Step down with your hurt leg and crutches. 2.Step down with your good leg. 3.Repeat. If there is a handrail: 1.Place your hand on the handrail. 2.Hold both crutches with your free hand. 3.Lower your hurt leg and crutch to the step below you. Keep the crutch tips in the center of the step. Never put the crutch tips on the edge of the step. 4.Lower your good leg to that step. 5.Repeat. Going down steps on your butt If you do not feel steady on steps, you can go down steps on your butt. 1.Sit on the highest step. Have your hurt leg out in front. Use your other hand to hold both crutches flat on the stairs. 2.Scoot your butt down to the next step. Use the free hand and your good leg to help you do this. Standing up 1.Hold the hurt leg forward. 2.Grab the armrest with one hand. Use the other hand to grab the top of the crutches. 3.Use the armrest and your crutches to pull yourself up to stand. Sitting down 1.Hold the hurt leg forward. 2.Grab the armrest with one hand. Use the other hand to grab the top of the crutches. 3.Slowly lower yourself to sit. Get help if: You feel unsteady or wobbly using crutches. You have any new pain. You cannot feel a part of your body (numbness) or you have a tingling feeling. Your crutches do not fit. Get help right away if: You fall. This information is not intended to replace advice given to you by your health care provider. Make sure you discuss any questions you have with your health care provider. Document Released: 03/04/2009 Document Revised: 08/29/2018 Document Reviewed: 03/08/2017 [employer] Patient Education 2020 [employer]. Follow Up Care 10/23/2022 15:57:56 With:JUAN F LAL MD, Orthopedic, Wound Care, Wound Care Service Address: [address] [place] [address] [address] [address] [address] [place] [address]- [phone] When:12/07/2022 10:45:00 [facility] 11-30-2022 Note Discharge Instructions Thank you for allowing [facility] to assist you with your healthcare needs. The following is important discharge information regarding your hospital visit. Your Care Team [facility] What to do next Scheduled Follow-Up Appointments Appointment Type When Where Contact InformationCV OV 05/16/2023 08:30 AM EDT [facility] Up Appointments Follow Up with JUAN F LAL MD, Orthopedic, Wound Care, Wound Care Service When 12/07/2022 10:45 AM EST Where: [id number] [facility] [address] [address] [address] [place] [address]- [phone] The Following Activity and Diet Have Been Ordered for You Discharge Activity - Ordered -- Non-Weight Bearing Activity Only, [facility]LE, 11/30/22 13:45:00 EST Discharge Diet - Ordered -- No changes were made to your diet during your hospital stay. Please resume your pre hospitalization diet on discharge., 11/30/22 13:45:00 EST The Following Equipment Has Been Ordered for You Discharge Home Equipment Discharge Wound Care - Ordered -- Keep dressing clean and dry until follow up appointment., 11/30/22 13:45:00 EST The Following Treatments Have Been Ordered for You Discharge Labs No qualifying data available. Discharge Radiology No qualifying data available. Other Therapies No qualifying data available. Post Acute Orders No qualifying data available. Someone Will Contact You Regarding These Home Health Referrals No home referrals have been ordered for you. No one will call you. Allergies NKA Medications Please ask your primary doctor or pharmacist before taking any other medication not listed, including over the counter drugs, herbal medications, vitamins and or supplements as they may interact with your home medications. What How Much When Instructions Last Dose Unchanged aspirin (Ecotrin Adult Low Strength 81 mg oral delayed release tablet) 1 tab(s) by mouth Once a day (in the morning) Unchanged metoprolol (Lopressor 25mg--USE metoprolol tartrate 25 mg oral tablet) 0.5 tab(s) by mouth Two (2) times a day Duration: 90 Days Unchanged multivitamin (Multiple Vitamins oral capsule) 1 cap by mouth Once a day Unchanged nitroGLYcerin (Nitrostat 0.4 mg sublingual tablet) 1 tab(s) under the tongue Every 5 minutes as needed for Chest pain Unchanged rosuvastatin (rosuvastatin 40 mg oral tablet) 1 cap by mouth Daily at bedtime Please take this list to your next doctor s visit. Bring all medications you take, including over the counter medications, herbals and other supplements with you to your doctor s visit. Patients and families are reminded to discard old lists and to update any records with all medication providers or retail pharmacies. Education Materials Crutch Use, Adult Crutches are used to take weight off of one of your legs or feet when you stand or walk. You may need crutches to help heal after an injury or procedure. It is important to use crutches that fit right. Your crutches fit right if: You can fit 2 or 3 fingers between your armpit and the crutch. You use your hands, not your armpits, to hold yourself up. Do not put your armpits on the crutches. This can damage the nerves in your shoulders, arms, back, armpits, and hands. It is important that a doctor has seen you use crutches the right way before you use them at home. How to use your crutches How you will use your crutches will depend on why you need them. Your doctor may tell you not to put weight on (not to support your weight with) your hurt leg (non weight-bearing). Or, your doctor may let you put (bear) some of your weight on the hurt leg (partial weight-bearing), but not all of your weight. Follow instructions from your doctor about weight-bearing. Do not put weight on your leg in an amount that causes pain. Walking 1. Stand on your good leg and lift both crutches at the same time. 2. Place the crutches one step-length in front of you. 3. Bring the good leg forward to meet the crutches or to land a little bit ahead of them. 4. Repeat. Going up steps If there is no handrail: 1. Step up with your good leg. 2. Step up with the crutches and your hurt leg. 3. Repeat. If there is a handrail: 1. Hold both crutches in one hand. 2. Place your other hand on the handrail. 3. Put your weight on your arms and lift your good leg up to the step. 4. Bring the crutches and the hurt leg up to that step. 5. Repeat. Going up steps on your butt If you do not feel steady on steps, you can go up steps on your butt. 1. Sit on the lowest step. Have your hurt leg out in front. Use your other hand to hold both crutches flat on the stairs. 2. Scoot your butt up to the next step. Use the free hand and your good leg to help you do this. Going down steps If there is no handrail: 1. Step down with your hurt leg and crutches. 2. Step down with your good leg. 3. Repeat. If there is a handrail: 1. Place your hand on the handrail. 2. Hold both crutches with your free hand. 3. Lower your hurt leg and crutch to the step below you. Keep the crutch tips in the center of the step. Never put the crutch tips on the edge of the step. 4. Lower your good leg to that step. 5. Repeat. Going down steps on your butt If you do not feel steady on steps, you can go down steps on your butt. 1. Sit on the highest step. Have your hurt leg out in front. Use your other hand to hold both crutches flat on the stairs. 2. Scoot your butt down to the next step. Use the free hand and your good leg to help you do this. Standing up 1. Hold the hurt leg forward. 2. Grab the armrest with one hand. Use the other hand to grab the top of the crutches. 3. Use the armrest and your crutches to pull yourself up to stand. Sitting down 1. Hold the hurt leg forward. 2. Grab the armrest with one hand. Use the other hand to grab the top of the crutches. 3. Slowly lower yourself to sit. Get help if: You feel unsteady or wobbly using crutches. You have any new pain. You cannot feel a part of your body (numbness) or you have a tingling feeling. Your crutches do not fit. Get help right away if: You fall. This information is not intended to replace advice given to you by your health care provider. Make sure you discuss any questions you have with your health care provider. Document Released: 03/04/2009 Document Revised: 08/29/2018 Document Reviewed: 03/08/2017 [employer] Patient Education 2020 [employer]. Additional Information VACCINATE! IT SAVES LIVES! Members of the community who have not yet received the COVID-19 vaccine and would like to receive it can visit one of [facility] vaccine clinics. There are many vaccine clinic locations within the [facility]. For locations and available times, please visit [email or web address].coronavirus.o [place].gov/. It is important to note that some COVID mobile vaccine clinics are held outdoors and may be canceled in rainy or stormy conditions. To learn more about pediatric vaccinations (ages 5-11), we invite you to visit the [facility] webpage. https://www.[facility].org/p ages/8606-Ghazg-Lccyqtgysmi-Freq zajttz-Lawlx-Retuoveei.html To learn more about the COVID-19 vaccine, we invite you to visit the CDC website for a list of frequently asked questions. https://www.cdc.gov/coronavirus/ 2019-ncov/vaccines/faq.html [facility] Patient Portal Access Instructions: Stay connected with your healthcare team and access your personal medical information anytime with the [facility] Patient Portal.If you would like a full copy of your medical records, please contact the [facility] Medical Records Department, Saturday through Saturday between 8a.m. and 4:30p.m. Please follow the directions below to access the portal: 1.Access the email account you provided upon registration to the [facility].2.Look for an invitation email from [facility].3.Open the email and access the invitation link: Accept Invitation to [facility]4.Fill in the required engle to create your account. Sign into [email or web address] with your username and password that you created in the above steps to stay up to date. You can then view a summary of results, a summary of your visits, and the ability to download your summaries to your computer or send the information securely to a physician. Remember that your healthcare information is confidential, so carefully consider who you will allow to register on the [facility] Patient Portal for access to your information. You can also access the [facility] Patient Portal on the [employer]. Simply click on Health Records under Health Data and then click on the [facility] logo. HOW TO SAFELY DISPOSE OF PRESCRIPTION MEDICATIONS Please use one of the following methods to safely dispose of your unused medications. 1.Use a drug disposal kit: the drug disposal pouch allows you to safely discard your old and unused drugs. Ask your nurse to give you one when you are discharged.2.Visit a local take-back location: Many local pharmacies and police departments have programs that collect old and unwanted prescription drugs. Call your local pharmacy or go to http://[employer].Linchpin/7M3Ah8d to find one close to you.3.Make use of household items: Use cat litter or old coffee grounds to dispose medications if other options are not available. Mix your drugs with these household products, seal them in an airtight container and throw it into the garbage. Call [facility]: [phone] to be sure your drugs can be disposed of in this way. Some medicines may require a different approach.4.Never flush your medications down the toilet. IF YOU HAVE BEEN PRESCRIBED AN OPIOID FOR PAIN If you have been prescribed an opioid (such as hydrocodone, oxycodone or morphine), it is critical to understand the possible side effects and risks of opioid pain medications. Even when taken as directed, opioids can have several side effects including: Tolerance, meaning you might need to take more of a medication for the same pain relief. Nausea, vomiting and/or constipation. Sleepiness, dizziness, dry mouth, confusion, depression or itching. Physical dependence, meaning you have withdrawal symptoms when a medication is stopped, can develop within a few days. KNOW YOUR RESPONSIBILITIES It is important to know exactly how much and how often to take the opioid pain medications you are prescribed. Never take opioids in higher amounts or more often than prescribed. Do not combine opioids with alcohol or other drugs that cause drowsiness, such as benzodiazepines, also known as benzos, including diazepam and alprazolam, muscle relaxants or sleep aids. Never sell or share prescription opioids. This is illegal. Store opioids in a secure place and out of reach of others (including children, family, friends and visitors). The last page of this document has been signed and retained as a CHART COPY. Signatures Patient Education Materials Crutch Use, Adult, Akho-mu-Ofmo Medication Leaflets My discharge plan and instructions have been reviewed and explained to me and I,JOHN MARTINEZ understand my current condition and have read and understand these discharge instructions. I have received a written copy of the plan/instructions. If I have questions, I am aware that I should contact my doctor. Patient/Substance Abuse Prevention Coordinator Signature: Date/Time: Relationship to Patient: Witness Name/Signature: Date/Time: [facility] 11-30-2022 Note The microscopic examination is performed, except in the case of Gross Only. [facility] 11-30-2022 Note The microscopic examination is performed, except in the case of Gross Only. [facility] 11-30-2022 Note The microscopic examination is performed, except in the case of Gross Only. [facility] 11-30-2022 Note Date of Service 11/30/2022 Chief Complaint Pain Subjective Patient is a 52-year-old male with a past medical history of CAD status post PCI, hypertension, dyslipidemia, depression, hypertension who presented to the hospital today to undergo a revision of a right auayi-oye-vesl amputation with Dr. Lal. Patient was recently seen by cardiology in October for preoperative clearance. Preoperative lab work was unremarkable. Postop blood pressure 108/72, patient is currently saturating 94% on room air. Per patient, this is the eighth surgery that he has had on his right leg following an accident at work in 2010. He originally underwent wound VAC placements and then ended up with osteomyelitis and a below the knee amputation and then underwent another surgery for an ajayv-vhh-bdws amputation. Patient seen and examined resting in bed. He is eager to get home. He states that he is currently experiencing 7 out of 10 pain in his right residual limb however states that he is typically a 6 out of 10 pain and is used to dealing with it. States that he ate breakfast and tolerated that well without nausea or vomiting. He did get up through the night using a walker to go to the bathroom. Denied all other complaints. Objective Vitals and Measurements T: 36.5 C (Oral) TMIN: 35.75 C TMAX: 36.8 C (Oral) HR: 85 RR: 18 BP: 95/66 SpO2: 97% HT: 190.5 cm WT: 90.1 kg BMI: 24.83 Intake and Output 7AM Yesterday to 7AM Today Intake and Output (Last 24 hours) Intake Administration Information 2409.35 Oral Intake 930.00 Output Urine Voided 1025.00 Intra-Op EBL 50.00 Stool Count 0.00 Urine Count 7.00 Total Summary Total Intake 3339.35 Total Output 1075.00 Fluid Balance 2264.35 Physical Exam General: No acute distress. Alert and Appropriate Skin: No rash. Warm, Dry, not intact HEENT: Head is normocephalic and atraumatic. No lesions. Pupils equal in size. Nose: No septal deviation. Mouth: Oropharynx mucosa is without lesion. Neck: Supple. No lymphadenopathy, thyromegaly noted. Lungs: Bilaterally diminished breath sounds with no crepitation or wheeze. Unlabored Cardiovascular: Heart is regular rhythm, S1S2, No extra-audible heart tones Abdomen: Abdomen is soft, nontender. Bowel sounds active all four quadrants. Extremities: No clubbing, cyanosis or edema. Peripheral pulses palpable. No calf tenderness. Adequate peripheral circulation. Right LE dressing C/D/I Neurological: The patient is awake, oriented to time, people and place. Following simple commands, moving all extremities. Weight Dosing Weight: 90.1 kg (11/29/22) Dosing Weight: 90.1 kg (11/29/22) Medications Medications (17) Active Scheduled: (8) ascorbic acid 500 mg tablet 500 mg 1 tab(s), Oral, BID aspirin 81 mg EC 81 mg 1 tab(s), Oral, qAM atorvastatin 80 mg tablet 80 mg 1 tab(s), Oral, qHS famotidine 20 mg tablet 20 mg 1 tab(s), Oral, qHS ferrous sulfate 325 mg Tablet 325 mg 1 tab(s), Oral, TIDM metoprolol tartrate 12.5 mg ( HALF-TAB ) 12.5 mg 1 EA, Oral, BID multivitamin tablet 1 tab(s), Oral, qDay Transderm-Scop patch REMOVAL 1 EA, Miscellaneous, q72h Continuous: (1) Lactated Ringers 1,000 mL 1,000 mL, Intravenous, 125 mL/hr PRN: (8) acetaminophen 325 mg Tablet 650 mg 2 tab(s), Oral, q4h acetaminophen-HYDROcodone 325-5 mg tablet 1 tab(s), Oral, q4h acetaminophen-HYDROcodone 325-5 mg tablet 2 tab(s), Oral, q4h docusate sodium 100 mg Capsule 100 mg 1 cap(s), Oral, BID magnesium hydroxide 8% Suspension 30 mL UD 30 mL, Oral, qHS morphine 4 mg/mL 1mL INJ 5 mg 1.25 mL, IV Push, q3h nitroglycerin 0.4 mg Tablet (25/btl) 0.4 mg 1 tab(s), Sublingual, q5min ondansetron 2 mg/ 1 mL 2 mL INJ 4 mg 2 mL, IV Push, q4h Lab Results No 36 Hour Lab Data EKG No qualifying data available. Assessment/Plan Postop day #1 status post revision of right zjbkh-lif-zumb amputation. Management per orthopedic surgery. Encourage early ambulation and incentive spirometry. PT/OT recommended that the patient can go home with no needs. Postop labs currently pending. CAD- on aspirin, statin and metoprolol. Cardiac cath 06/04/2020: PCI to left circumflex Hypertension- borderline hypotensive. Dyslipidemia- on statin Full Code DVT and pain prophylaxis per primary team Patient is cleared for discharge per primary team. He will follow-up with orthopedic surgery in 2 weeks. Medically stable for discharge as well. Discussed with Dr. Lucero Time Spent 23 minutes Digitally Signed by QAMAR ESQUIVEL on 11/30/2022 10:52 AM [facility] 11-30-2022 Orthopaedic surgery Progress note Date of Service 11/30/2022 Subjective Patient seen and examined at bedside this morning. He is doing well, and pain is well controlled. Patient was able to get out of bed multiple times without issue. He feels ready to go home. Objective Vitals and Measurements T: 36.6 C (Oral) TMIN: 35.75 C TMAX: 36.8 C (Oral) HR: 52 RR: 17 BP: 90/63 SpO2: 97% HT: 190.5 cm WT: 90.1 kg BMI: 24.83 Intake and Output 7AM Yesterday to 7AM Today Intake and Output (Last 24 hours) Intake Administration Information 2409.35 Oral Intake 930.00 Output Urine Voided 1025.00 Intra-Op EBL 50.00 Stool Count 0.00 Urine Count 7.00 Total Summary Total Intake 3339.35 Total Output 1075.00 Fluid Balance 2264.35 Physical Exam General: Alert and oriented x3, in no acute distress Right lower extremity: Dressing clean, dry, intact. Sensation grossly intact proximal to dressing. Weight Dosing Weight: 90.1 kg (11/29/22) Dosing Weight: 90.1 kg (11/29/22) Medications Medications (17) Active Scheduled: (8) ascorbic acid 500 mg tablet 500 mg 1 tab(s), Oral, BID aspirin 81 mg EC 81 mg 1 tab(s), Oral, qAM atorvastatin 80 mg tablet 80 mg 1 tab(s), Oral, qHS famotidine 20 mg tablet 20 mg 1 tab(s), Oral, qHS ferrous sulfate 325 mg Tablet 325 mg 1 tab(s), Oral, TIDM metoprolol tartrate 12.5 mg ( HALF-TAB ) 12.5 mg 1 EA, Oral, BID multivitamin tablet 1 tab(s), Oral, qDay Transderm-Scop patch REMOVAL 1 EA, Miscellaneous, q72h Continuous: (1) Lactated Ringers 1,000 mL 1,000 mL, Intravenous, 125 mL/hr PRN: (8) acetaminophen 325 mg Tablet 650 mg 2 tab(s), Oral, q4h acetaminophen-HYDROcodone 325-5 mg tablet 1 tab(s), Oral, q4h acetaminophen-HYDROcodone 325-5 mg tablet 2 tab(s), Oral, q4h docusate sodium 100 mg Capsule 100 mg 1 cap(s), Oral, BID magnesium hydroxide 8% Suspension 30 mL UD 30 mL, Oral, qHS morphine 4 mg/mL 1mL INJ 5 mg 1.25 mL, IV Push, q3h nitroglycerin 0.4 mg Tablet (25/btl) 0.4 mg 1 tab(s), Sublingual, q5min ondansetron 2 mg/ 1 mL 2 mL INJ 4 mg 2 mL, IV Push, q4h Lab Results No 36 Hour Lab Data EKG No qualifying data available. Assessment/Plan POD 1 s/p right AKA from through-knee amputation - Maintain post op dressing. - NWB RLE - PT/OT as tolerated - DVT ppx ASA starting today and SCD - 24hr post op Ancef course - Encourage incentive spirometer - Pain control - Patient is cleared for discharge from orthopedic standpoint - Follow up as outpatinet with Dr. Lal in 2 weeks - Will discuss with attending Digitally Signed by VAMSHI VANG DO on 11/30/2022 07:56 AM [facility] 11-29-2022 Note The microscopic examination is performed, except in the case of Gross Only. [facility] 11-29-2022 Note The microscopic examination is performed, except in the case of Gross Only. [facility] 11-29-2022 Note The microscopic examination is performed, except in the case of Gross Only. [facility] 11-29-2022 Note The microscopic examination is performed, except in the case of Gross Only. [facility] 11-29-2022 Note Date of Service 11/29/2022 Reason for Consultation Medical management Referring Physician Dr. Lal History of Present Illness Patient is a 52-year-old male with a past medical history of CAD status post PCI, hypertension, dyslipidemia, depression, hypertension who presented to the hospital today to undergo a revision of a right trlrh-smr-zufc amputation with Dr. Lal. Patient was recently seen by cardiology in October for preoperative clearance. Preoperative lab work was unremarkable. Postop blood pressure 108/72, patient is currently saturating 94% on room air. Per patient, this is the eighth surgery that he had on his right leg following an accident at work in 2010. He originally underwent wound VAC placements and then ended up with osteomyelitis and a below the knee amputation and then underwent another surgery for an cikoo-hpg-dyeq amputation. Patient states that a different surgeon has operated on him for every surgery that he has had. Patient denies tobacco, alcohol, illicit drug use. He states that he does have a bad reaction to pain medication and gets very nauseous. States that he has taken Phenergan in the past to combat this. Currently complaining of some burning and aching at the surgical site. Biggest complaint is that he is hungry. Denied headache, dizziness, nausea, vomiting, chest pain, shortness of breath, diarrhea and problems with urination. Review of Systems Review of Systems: Reviewed in detail, including general health, HEENT, cardiovascular, respiratory, gastrointestinal, genitourinary, endocrine, musculoskeletal, neurologic, vascular, skin, and psychiatric. All are negative except for those listed in the history of present illness. Physical Exam Vitals and Measurements T: 36.4 C (Temporal Artery) TMIN: 35.75 C TMAX: 36.4 C (Temporal Artery) HR: 61(Monitored) RR: 16 BP: 108/72 SpO2: 94% HT: 190.5 cm WT: 90.1 kg BMI: 24.83 Weight Dosing Weight: 90.1 kg (11/29/22) Dosing Weight: 90.1 kg (11/29/22) Physical Exam General: No acute distress. Alert and Appropriate Skin: No rash. Warm, Dry, not intact HEENT: Head is normocephalic and atraumatic. No lesions. Pupils equal in size. Extraocular movements within normal limits. Nose: No septal deviation. Mouth: Oropharynx mucosa is without lesion. Neck: Supple. No lymphadenopathy, thyromegaly noted. Lungs: Bilaterally diminished breath sounds with no crepitation or wheeze. Unlabored Cardiovascular: Heart is regular rhythm, S1S2, No extra-audible heart tones Abdomen: Abdomen is soft, nontender. Bowel sounds hypoactive all four quadrants. Extremities: No clubbing, cyanosis or edema. Peripheral pulses palpable. No calf tenderness. Adequate peripheral circulation. Right LE dressing C/D/I Neurological: The patient is awake, oriented to time, people and place. Following simple commands, moving all extremities. Lab Results No 36 Hour Lab Data Assessment/Plan Postop day 0 status post revision of right smtfa-ypu-iumz amputation. Management per orthopedic surgery. Encourage early ambulation and incentive spirometry. PT/OT per primary team. CAD- on aspirin, statin and metoprolol. Cardiac cath 06/04/2020: PCI to left circumflex Hypertension- slightly borderline hypotensive post-op. Will monitor BP. Dyslipidemia- on statin Full Code DVT and pain prophylaxis per primary team Discussed with Dr. Lucero Problem List/Past Medical History Ongoing CAD - Coronary artery disease Dyslipidemia Hypertension Inferior ST segment elevation Historical Chest pain Procedure/Surgical History Echocardiogram: 06/06/20 PCI - Percutaneous coronary intervention: 06/04/20 Cardiac catheterization: 06/04/20 Leg Ankle Hernia repair Colonoscopy Amputation above-knee, mid-thigh Medications Inpatient ascorbic acid, 500 mg= 1 tab(s), Oral, BID atorvastatin, 80 mg= 1 tab(s), Oral, qHS Colace, 100 mg= 1 cap(s), Oral, BID, PRN Ecotrin Adult Low Strength 81 mg oral delayed release tablet, 81 mg= 1 tab(s), Oral, qAM Feosol, 325 mg= 1 tab(s), Oral, TIDM Kefzol, 2 gram(s)= 20 mL, IV Push (INT), q8h LR 1,000 mL, 1000 mL, Intravenous LR 1,000 mL, 1000 mL, Intravenous LR 1000 mL, 1000 mL, Intravenous Metoprolol Tartrate 25 mg oral tablet, 12.5 mg= 1 EA, Oral, BID Milk of Magnesia, 30 mL, Oral, qHS, PRN morphine, 5 mg= 1 mL, IV Push, q3h, PRN Multiple Vitamins oral tablet, 1 tab(s), Oral, qDay Multivitamin, 1 tab(s), Oral, qDayM Nitrostat, 0.4 mg= 1 tab(s), Sublingual, q5min, PRN [place] 325- 5 mg oral tablet, 1 tab(s), Oral, q4h, PRN [place] 325- 5 mg oral tablet, 2 tab(s), Oral, q4h, PRN Pepcid, 20 mg= 1 tab(s), Oral, qHS scopolamine (Transderm-Scop Patch REMOVAL), 1 EA, Miscellaneous, q72h scopolamine (Transderm-Scop Patch REMOVAL), 1 EA, Miscellaneous, Once Tylenol, 650 mg= 2 tab(s), Oral, q4h, PRN Xylocaine HCl 1% injectable solution, 2.5 mg= 0.25 mL, Intradermal, PREOP pharm Zofran, 4 mg= 2 mL, IV Push, q4h, PRN Home Ecotrin Adult Low Strength 81 mg oral delayed release tablet, 81 mg= 1 tab(s), Oral, qAM, 11 refills Lopressor 25mg--USE metoprolol tartrate 25 mg oral tablet, 0.5 tab(s), Oral, BID, 3 refills Multiple Vitamins oral capsule, 1 cap(s), Oral, qDay, On hold for Surgery Nitrostat 0.4 mg sublingual tablet, 0.4 mg= 1 tab(s), Sublingual, q5min, PRN, 6 refills rosuvastatin 40 mg oral tablet, 1 cap(s), Oral, qHS, 3 refills Allergies NKA Social History Alcohol Use: Current. Type: Beer, Wine, Liquor. Frequency: 1-2 times per year., 06/04/2020 Home/Environment Domestic Concerns: None. Living situation: Home/Independent. Lives In: Single level home., 11/15/2022 Substance Abuse Use: Never., 01/19/2021 Tobacco Nicotine Use: Former smoker, quit more than 30 days ago. Started at age: 16 Years. Stopped at age: 44 Years., 06/04/2020 Family History Alcohol abuse: Father. Cancer: Mother. Diabetes: Father. Heart attack: Father and Brother. Heart disease: Father and Brother. Hypertension: Father and Brother. Substance abuse: Father. Sister: History is negative Immunizations No qualifying data available. Digitally Signed by QAMAR ESQUIVEL on 11/29/2022 02:44 PM [facility] 11-29-2022 Anesthesiology Consult note Patient: JOHN MARTINEZ Age: 52 years Sex: Male : 1970 Associated Diagnoses: None Author: MICHEL AYALA MD Postoperative Information Post Operative Info: Post op day: Post Anesthesia Care Unit. Patient location: PACU. Assessment Postanesthesia assessment Vitals: Vital signs from flowsheet : Vital Signs 11/29/2022 12:24 EST Temperature Temporal Artery 36.4 DegC Heart Rate Monitored 62 bpm Respiratory Rate 16 br/min Systolic Blood Pressure Non-Invasive 104 mmHg Diastolic Blood Pressure Non-Invasive 67 mmHg Mean Arterial Pressure (NBP) 76 mmHg 11/29/2022 12:15 EST Systolic Blood Pressure Non-Invasive 100 mmHg Diastolic Blood Pressure Non-Invasive 74 mmHg (Modified) Mean Arterial Pressure (NBP) 81 mmHg 11/29/2022 12:00 EST Heart Rate Monitored 53 bpm LOW Respiratory Rate 12 br/min LOW 11/29/2022 11:50 EST Heart Rate Monitored 54 bpm LOW Respiratory Rate 14 br/min Systolic Blood Pressure Non-Invasive 100 mmHg Diastolic Blood Pressure Non-Invasive 70 mmHg Mean Arterial Pressure (NBP) 77 mmHg 11/29/2022 11:37 EST Heart Rate Monitored 56 bpm LOW Respiratory Rate 16 br/min Systolic Blood Pressure Non-Invasive 104 mmHg Diastolic Blood Pressure Non-Invasive 70 mmHg Mean Arterial Pressure (NBP) 78 mmHg 11/29/2022 11:20 EST Heart Rate Monitored 69 bpm Respiratory Rate 16 br/min Systolic Blood Pressure Non-Invasive 101 mmHg Diastolic Blood Pressure Non-Invasive 69 mmHg Mean Arterial Pressure (NBP) 75 mmHg 11/29/2022 11:05 EST Heart Rate Monitored 79 bpm Respiratory Rate 16 br/min Systolic Blood Pressure Non-Invasive 118 mmHg Diastolic Blood Pressure Non-Invasive 92 mmHg HI Mean Arterial Pressure (NBP) 99 mmHg 11/29/2022 10:50 EST Temperature Temporal Artery 36.2 DegC Heart Rate Monitored 95 bpm Respiratory Rate 20 br/min Systolic Blood Pressure Non-Invasive 121 mmHg Diastolic Blood Pressure Non-Invasive 91 mmHg HI Mean Arterial Pressure (NBP) 98 mmHg 11/29/2022 10:45 EST Heart Rate Monitored 75 bpm bpm Respiratory Rate - Anes 16 br/min br/min 11/29/2022 10:42 EST Systolic Blood Pressure Non-Invasive 116 mmHg mmHg Diastolic Blood Pressure Non-Invasive 84 mmHg mmHg 11/29/2022 10:40 EST Heart Rate Monitored 65 bpm bpm Respiratory Rate - Anes 21 br/min br/min Systolic Blood Pressure Non-Invasive 121 mmHg mmHg Diastolic Blood Pressure Non-Invasive 81 mmHg mmHg 11/29/2022 10:36 EST Systolic Blood Pressure Non-Invasive 117 mmHg mmHg Diastolic Blood Pressure Non-Invasive 84 mmHg mmHg 11/29/2022 10:35 EST Temperature (Route Not Specified) 35.94 DegC DegC Heart Rate Monitored 60 bpm bpm Respiratory Rate - Anes 18 br/min br/min 11/29/2022 10:33 EST Systolic Blood Pressure Non-Invasive 114 mmHg mmHg Diastolic Blood Pressure Non-Invasive 83 mmHg mmHg 11/29/2022 10:30 EST Temperature (Route Not Specified) 35.86 DegC DegC Heart Rate Monitored 62 bpm bpm Respiratory Rate - Anes 19 br/min br/min Systolic Blood Pressure Non-Invasive 111 mmHg mmHg Diastolic Blood Pressure Non-Invasive 79 mmHg mmHg 11/29/2022 10:27 EST Systolic Blood Pressure Non-Invasive 118 mmHg mmHg Diastolic Blood Pressure Non-Invasive 77 mmHg mmHg 11/29/2022 10:25 EST Temperature (Route Not Specified) 35.88 DegC DegC Heart Rate Monitored 62 bpm bpm Respiratory Rate - Anes 18 br/min br/min 11/29/2022 10:24 EST Systolic Blood Pressure Non-Invasive 106 mmHg mmHg Diastolic Blood Pressure Non-Invasive 79 mmHg mmHg 11/29/2022 10:21 EST Systolic Blood Pressure Non-Invasive 110 mmHg mmHg Diastolic Blood Pressure Non-Invasive 76 mmHg mmHg 11/29/2022 10:20 EST Temperature (Route Not Specified) 36 DegC DegC Heart Rate Monitored 63 bpm bpm Respiratory Rate - Anes 18 br/min br/min 11/29/2022 10:18 EST Systolic Blood Pressure Non-Invasive 105 mmHg mmHg Diastolic Blood Pressure Non-Invasive 72 mmHg mmHg 11/29/2022 10:15 EST Temperature (Route Not Specified) 35.99 DegC DegC Heart Rate Monitored 65 bpm bpm Respiratory Rate - Anes 17 br/min br/min Systolic Blood Pressure Non-Invasive 108 mmHg mmHg Diastolic Blood Pressure Non-Invasive 72 mmHg mmHg 11/29/2022 10:12 EST Systolic Blood Pressure Non-Invasive 109 mmHg mmHg Diastolic Blood Pressure Non-Invasive 71 mmHg mmHg 11/29/2022 10:10 EST Temperature (Route Not Specified) 36.01 DegC DegC Heart Rate Monitored 70 bpm bpm Respiratory Rate - Anes 15 br/min br/min 11/29/2022 10:09 EST Systolic Blood Pressure Non-Invasive 108 mmHg mmHg Diastolic Blood Pressure Non-Invasive 70 mmHg mmHg 11/29/2022 10:06 EST Systolic Blood Pressure Non-Invasive 106 mmHg mmHg Diastolic Blood Pressure Non-Invasive 65 mmHg mmHg 11/29/2022 10:05 EST Temperature (Route Not Specified) 36.04 DegC DegC Heart Rate Monitored 68 bpm bpm Respiratory Rate - Anes 15 br/min br/min 11/29/2022 10:03 EST Systolic Blood Pressure Non-Invasive 104 mmHg mmHg Diastolic Blood Pressure Non-Invasive 72 mmHg mmHg 11/29/2022 10:00 EST Temperature (Route Not Specified) 36.07 DegC DegC Heart Rate Monitored 64 bpm bpm Respiratory Rate - Anes 15 br/min br/min Systolic Blood Pressure Non-Invasive 109 mmHg mmHg Diastolic Blood Pressure Non-Invasive 72 mmHg mmHg 11/29/2022 9:57 EST Systolic Blood Pressure Non-Invasive 108 mmHg mmHg Diastolic Blood Pressure Non-Invasive 72 mmHg mmHg 11/29/2022 9:55 EST Heart Rate Monitored 62 bpm bpm Respiratory Rate - Anes 15 br/min br/min 11/29/2022 9:54 EST Systolic Blood Pressure Non-Invasive 109 mmHg mmHg Diastolic Blood Pressure Non-Invasive 71 mmHg mmHg 11/29/2022 9:51 EST Systolic Blood Pressure Non-Invasive 105 mmHg mmHg Diastolic Blood Pressure Non-Invasive 71 mmHg mmHg 11/29/2022 9:50 EST Temperature (Route Not Specified) 36.12 DegC DegC Heart Rate Monitored 64 bpm bpm Respiratory Rate - Anes 14 br/min br/min 11/29/2022 9:48 EST Systolic Blood Pressure Non-Invasive 106 mmHg mmHg Diastolic Blood Pressure Non-Invasive 74 mmHg mmHg 11/29/2022 9:45 EST Temperature (Route Not Specified) 36.15 DegC DegC Heart Rate Monitored 64 bpm bpm Respiratory Rate - Anes 17 br/min br/min Systolic Blood Pressure Non-Invasive 105 mmHg mmHg Diastolic Blood Pressure Non-Invasive 69 mmHg mmHg 11/29/2022 9:42 EST Systolic Blood Pressure Non-Invasive 110 mmHg mmHg Diastolic Blood Pressure Non-Invasive 81 mmHg mmHg 11/29/2022 9:40 EST Temperature (Route Not Specified) 36.2 DegC DegC Heart Rate Monitored 59 bpm bpm Respiratory Rate - Anes 28 br/min br/min 11/29/2022 9:39 EST Systolic Blood Pressure Non-Invasive 114 mmHg mmHg Diastolic Blood Pressure Non-Invasive 85 mmHg mmHg 11/29/2022 9:36 EST Systolic Blood Pressure Non-Invasive 108 mmHg mmHg Diastolic Blood Pressure Non-Invasive 67 mmHg mmHg 11/29/2022 9:35 EST Temperature (Route Not Specified) 36.25 DegC DegC Heart Rate Monitored 57 bpm bpm Respiratory Rate - Anes 23 br/min br/min 11/29/2022 9:33 EST Systolic Blood Pressure Non-Invasive 113 mmHg mmHg Diastolic Blood Pressure Non-Invasive 74 mmHg mmHg 11/29/2022 9:30 EST Temperature (Route Not Specified) 36.28 DegC DegC Heart Rate Monitored 67 bpm bpm Respiratory Rate - Anes 24 br/min br/min Systolic Blood Pressure Non-Invasive 113 mmHg mmHg Diastolic Blood Pressure Non-Invasive 72 mmHg mmHg 11/29/2022 9:27 EST Systolic Blood Pressure Non-Invasive 108 mmHg mmHg Diastolic Blood Pressure Non-Invasive 78 mmHg mmHg 11/29/2022 9:25 EST Temperature (Route Not Specified) 36.16 DegC DegC Heart Rate Monitored 77 bpm bpm Respiratory Rate - Anes 4 br/min br/min 11/29/2022 9:24 EST Systolic Blood Pressure Non-Invasive 96 mmHg mmHg Diastolic Blood Pressure Non-Invasive 65 mmHg mmHg 11/29/2022 9:21 EST Systolic Blood Pressure Non-Invasive 97 mmHg mmHg Diastolic Blood Pressure Non-Invasive 71 mmHg mmHg 11/29/2022 9:20 EST Temperature (Route Not Specified) 35.75 DegC DegC Heart Rate Monitored 72 bpm bpm Respiratory Rate - Anes 17 br/min br/min 11/29/2022 9:18 EST Systolic Blood Pressure Non-Invasive 94 mmHg mmHg Diastolic Blood Pressure Non-Invasive 67 mmHg mmHg 11/29/2022 9:15 EST Heart Rate Monitored 71 bpm bpm Respiratory Rate - Anes 21 br/min br/min Systolic Blood Pressure Non-Invasive 93 mmHg mmHg Diastolic Blood Pressure Non-Invasive 69 mmHg mmHg 11/29/2022 9:12 EST Systolic Blood Pressure Non-Invasive 129 mmHg mmHg Diastolic Blood Pressure Non-Invasive 85 mmHg mmHg 11/29/2022 9:10 EST Heart Rate Monitored 71 bpm bpm Respiratory Rate - Anes 0 br/min br/min Systolic Blood Pressure Non-Invasive 124 mmHg mmHg Diastolic Blood Pressure Non-Invasive 84 mmHg mmHg 11/29/2022 9:00 EST Heart Rate Monitored 76 bpm Respiratory Rate 16 br/min 11/29/2022 8:50 EST Heart Rate Monitored 75 bpm bpm 11/29/2022 8:48 EST Heart Rate Monitored 72 bpm bpm 11/29/2022 8:45 EST Heart Rate Monitored 73 bpm bpm 11/29/2022 8:44 EST Heart Rate Monitored 73 bpm bpm 11/29/2022 8:03 EST Temperature Temporal Artery 36.4 DegC Peripheral Pulse Rate 73 bpm Respiratory Rate 16 br/min Systolic Blood Pressure Non-Invasive 121 mmHg Diastolic Blood Pressure Non-Invasive 77 mmHg . Mental status: at preoperative baseline. Respiratory function: respirations are non-labored, stable. Respiratory support: none. CV function: stable. Cardiovascular support: none. Pain: satisfactory. Nausea status: satisfactory. Postoperative hydration status: within normal limits. Notes: Patient is sufficiently recovered from anesthesia to participate in the evaluation. No follow-up care needed. No complications post-anesthesia.. Digitally Signed by MICHEL AYALA MD on 11/29/2022 12:34 PM [facility] 11-29-2022 Anesthesiology Consult note Patient: JOHN MARTINEZ Age: 52 years Sex: Male : 1970 Associated Diagnoses: None Author: MICHEL AYALA MD Preoperative Information Time of last food or liquid consumption: 11/28/2022 18:00:00 Anesthesia history Patient's history: nausea and vomiting with anesthesia. Family's history: negative. Health Status Allergies: Allergic Reactions (All) NKA Canceled/Inactive Reactions (All) Severity Not Documented Aspirin- No reactions were documented., Allergies (1) ActiveReaction NKANone Documented Current medications: (Selected) Inpatient Medications Ordered Kefzol: 2 gram(s), 20 mL, 240 mL/hr, IV Push (INT), PREOP pharm LR 1,000 mL: 100 mL/hr, Intravenous, Stop: 11/29/22 23:59:00 EST LR 1,000 mL: 20 mL/hr, Intravenous, Stop: 11/29/22 22:59:00 EST Xylocaine HCl 1% injectable solution: 2.5 mg, 0.25 mL, Intradermal, PREOP pharm scopolamine (Transderm-Scop Patch REMOVAL): 1 EA, Miscellaneous, Once scopolamine (Transderm-Scop Patch REMOVAL): 1 EA, Miscellaneous, q72h Prescriptions Prescribed Ecotrin Adult Low Strength 81 mg oral delayed release tablet: 81 mg, 1 tab(s), Oral, qAM, 30 tab(s), 11 Refill(s) Lopressor 25mg--USE metoprolol tartrate 25 mg oral tablet: 0.5 tab(s), Oral, BID, for 90 day(s), 90 tab(s), 3 Refill(s) Nitrostat 0.4 mg sublingual tablet: 0.4 mg, 1 tab(s), Sublingual, q5min, PRN: Chest pain, 100 tab(s), 6 Refill(s) rosuvastatin 40 mg oral tablet: 1 cap(s), Oral, qHS, 90 tab(s), 3 Refill(s) Documented Medications Documented Multiple Vitamins oral capsule: 1 cap(s), Oral, qDay, 90 cap(s), 0 Refill(s), Medications (6) Active Scheduled: (4) ceFAZolin syringe 2 gram(s) 20 mL, IV Push (INT), PREOP pharm lidocaine 1% (MPF) 2 mL vial pf 2.5 mg 0.25 mL, Intradermal, PREOP pharm Transderm-Scop patch REMOVAL 1 EA, Miscellaneous, q72h Transderm-Scop patch REMOVAL 1 EA, Miscellaneous, Once Continuous: (2) Lactated Ringers 1,000 mL 1,000 mL, Intravenous, 20 mL/hr Lactated Ringers 1,000 mL 1,000 mL, Intravenous, 100 mL/hr PRN: (0) Problem list: Medical Inferior ST segment elevation / SNOMED CT 1714852298 / Confirmed CAD - Coronary artery disease / SNOMED CT 7858183533 / Confirmed Dyslipidemia / SNOMED CT 3433364526 / Confirmed Hypertension / SNOMED CT 7372402206 / Confirmed, Active Problems (10) CAD - Coronary artery disease Depression Dyslipidemia Glasses Hypertension Inferior ST segment elevation Other specified acquired deformities of right lower leg PONV (postoperative nausea and vomiting) Stented coronary artery Vitamin D deficiency Histories Past Medical History: Resolved Chest pain ([id number]): Resolved. Family History: Cancer Mother Hypertension Father Brother Heart disease Father Brother Substance abuse Father Alcohol abuse Father Heart attack Father Brother Diabetes Father Procedure history: Echocardiogram ([id number]) on 06/06/2020 at 50 Years. Comments: 01/10/2021 11:36 Virginie Boo MA (ABR-OE) Summary: 1. Left ventricle: The cavity size is normal. Wall thickness is normal. Systolic function is normal. The estimated ejection fraction is 55-60%. Wall motion is normal; there are no regional wall motion abnormalities. Normal diastolic function. 2. Ventricular septum: There is no evidence of a ventricular septal defect. PCI - Percutaneous coronary intervention ([id number]) on 06/04/2020 at 50 Years. Comments: 06/28/2020 9:52 Virginie Boo MA (ABR-OE) PCI STATUS POST 2 X DINESH TO LEFT CIRCUMFLEX Cardiac catheterization ([id number]) on 06/04/2020 at 50 Years. Comments: 01/10/2021 11:35 Virginie Boo MA (ABR-OE) SUMMARY: 1. 2nd lesion intervention: Stent placement. A 3 mm (D) x 38 mm (L), Synergy MR stent was used. The stent was advanced across the lesion and deployed with two inflations and a maximum pressure of 12 beatriz. Stent placement. A 4 mm (D) x 16 mm (L), Synergy MR stent was used. The stent was advanced across the lesion and deployed with a single inflation and a maximum pressure of 12 beatriz. 2. Left ventricle: Systolic function is normal. The estimated ejection fraction is 60-65%. Wall motion is normal; there are no regional wall motion abnormalities. 3. Left circumflex: Mid-vessel lesion: The diagnostic study demonstrated a tubular, 100% stenosis. The distal vessel supplies a moderate-sized vascular territory. The lesion is a likely culprit for the patient's anginal symptoms, recent myocardial infarction, and clinical presentation. The lesion presents an ACC/AHA type C high risk lesion for intervention. Stent placement was performed, with balloon angioplasty and/or thrombectomy, resulting in an excellent angiographic appearance (see 2nd lesion intervention). Following intervention, there is a residual 0% stenosis with ALEXANDRU grade 3 flow (brisk flow). IMPRESSIONS: 100 % thrombotic occlusion in proximal OM1 with residual disease in mid LCX - s/p aspiration thrombectomy and balloon angioplasty followed by PCI with 2 DINESH placement. Amputation above-knee, mid-thigh ([id number]). Comments: 11/15/2022 10:43 GELA Rubi right Hernia repair ([id number]). Comments: 11/15/2022 10:43 GELA Rubi x9 Right Colonoscopy ([id number]). Ankle ([id number]). Comments: 11/15/2022 10:43 GELA Rubi x2 left Leg ([id number]). Comments: 11/15/2022 10:45 GELA Rubi x8 right Social History Social & Psychosocial Habits Alcohol 06/04/2020 Use: Current Type: Beer, Liquor, Wine Frequency: 1-2 times per year Substance Abuse 01/19/2021 Use: Never Tobacco 06/04/2020 Tobacco Use: Former smoker, quit more Started at age: 16 Years Stopped at age: 44 Years Home/Environment 11/15/2022 Domestic Concerns None Living situation: Home/Independent Lives In Single level home . Physical Examination Vital Signs 11/29/2022 8:03 EST Temperature Temporal Artery 36.4 DegC Peripheral Pulse Rate 73 bpm Respiratory Rate 16 br/min Systolic Blood Pressure Non-Invasive 121 mmHg Diastolic Blood Pressure Non-Invasive 77 mmHg Vital Signs(last 24 hrs) Last Charted Resp Rate 16 br/min (NOV 29 08:03) [id number] mmHg (NOV 29 08:03) DBP77 mmHg (NOV 29 08:03) Measurements from flowsheet : Measurements 11/29/2022 8:03 EST Height 190.5 cm Height in inches 75 inch(es) Admission Weight 90.1 kg Weight Lbs 198.2 lb Weight Method Actual [place] Body Weight 84.50 kg Type of Scale Used Bed scale Admission Body Mass Index 24.83 m2 Pain assessment: Pain Assessment 11/29/2022 8:03 EST Primary Pain Location Leg Primary Pain Laterality Right Primary Pain Intensity 6 Primary Pain Quality Aching Primary Pain Non-Pharma Intervention Repositioning, Rest Pain Scale Type 0-10 Pain scale . General: Alert and oriented, No acute distress. Airway: Normal temporomandibular joint mobility, Nares patent, Trachea midline. Mallampati classification: II (soft palate, fauces, uvula visible). Head: Normocephalic, Atraumatic. Dentition Evaluation: Intact, Own teeth. Respiratory: Lungs are clear to auscultation. Cardiovascular: Normal rate, Regular rhythm. Neurologic: Alert, Oriented. Review / Management Results review: No qualifying data available , Lab results 11/29/2022 8:15 EST scopolamine 1 patch(es) patch(es) Lactated Ringers Injection Begin Bag 1,000 mL mL 11/29/2022 8:13 EST Hand Left 11/29/2022 20 gauge Peripheral IV Activity: Insert new site Peripheral IV Dressing Condition: Clean, Dry, Intact Peripheral IV Dressing Activity: Applied, Transparent dressing Peripheral IV Line Status/Patency: Continuous infusion Peripheral IV Site Condition: No complications Peripheral IV Equipment: Manual Peripheral IV Number of Attempts: 1 11/29/2022 8:12 EST SN - Preop - CTm Pt Ready for OR/Proced 11/29/2022 8:12 11/29/2022 8:11 EST Individuals Taught Patient Learning Readiness Willing to learn Barriers to Learning None evident Teaching Method Explanation, Printed materials Preferred Written Language South Korean Family/Caregiver Prefer Written Language South Korean Preferred Spoken Language South Korean Family/Caregiver Prefer Spoken Language South Korean Pre Procedure/Surgery Education Appropriate expectations, Bring glasses, hearing aids, contact lens case, Date/Time of procedure/surgery, Hospital gown requirement worn to OR, Leave valuables, jewelry, wedding ring at home, NPO Procedure/Surgical Teaching Evaluation Verbalizes/Nonverbally indicates understanding Ed-Safety Verbalizes/Nonverbally indicates understanding Ed-Pain Scale Verbalizes/Nonverbally indicates understanding Ed-Pain, Acute Verbalizes/Nonverbally indicates understanding 11/29/2022 8:03 EST Height 190.5 cm Height in inches 75 inch(es) Admission Weight 90.1 kg Weight Lbs 198.2 lb Weight Method Actual [place] Body Weight 84.50 kg Type of Scale Used Bed scale Admission Body Mass Index 24.83 m2 Temperature Temporal Artery 36.4 DegC Peripheral Pulse Rate 73 bpm Respiratory Rate 16 br/min Systolic Blood Pressure Non-Invasive 121 mmHg Diastolic Blood Pressure Non-Invasive 77 mmHg Primary Pain Location Leg Primary Pain Laterality Right Primary Pain Intensity 6 Primary Pain Quality Aching Primary Pain Non-Pharma Intervention Repositioning, Rest Pain Scale Type 0-10 Pain scale Heart Sounds ICU S1S2 Heart Rhythm Regular Respirations Unlabored Respiratory Pattern Regular Breath Sounds Auscultated Anterior only All Lobes Breath Sounds Clear Oxygen Therapy Room air Oxygen Saturation 98 % Abdomen Description Non-distended Abdomen Palpation Non-Tender Bowel Sounds All Quadrants Present All Extremity Description [place] Skin Temperature Warm Temperature All Extremities Warm Skin Description [place] Skin Integrity Intact Mucous Membrane Color [place] Skin Moisture General Dry Neurological Symptoms Patient denies Characteristics of Speech Clear Level of Consciousness Alert Violence Risk Confused No Violence Risk Irritable No Violence Risk Boisterous No Violence Risk Verbal Threats No Violence Risk Physical Threats No Violence Risk Attacking Objects No Violence Risk Predictor Score 0 Violence Risk Intervention None Violence Risk Current Interventions None Affect/Behavior Appropriate, Calm, Cooperative Orientation Oriented x 4 Allergies No Consent Form Signed Yes Patient Dressed In Hospital gown CHG Preoperative Wash/Wipe Night before procedure, Day of procedure, Site specific wipe Preop Nasal Swab Povidone-Iodine CHG Skin Prep Completed for Eligible Surgery History & Physical Update On Chart Yes History & Physical On Chart Yes Obstructive Sleep Apnea Assess Completed Yes MRSA/MSSA Protocol Yes Belongings At Bedside Cell phone, Veterinarian Helper, Pants, Shirt, Shoes, Undergarments, Other: ID Activity Status ADL Resting NPO Status Maintained Standard Safety ID band on, Call device within reach, Bed in low position, Wheels locked, Upper/Half-Length side-rails up, Phone within reach, personal items within reach, Safety level maintained, Non-Slip footwear, Precautions maintained Patient ID Band on and Verified Yes Implants Verified Yes Pacemaker/AICD Verified Yes Last Fluid Intake 11/28/2022 21:30 Last Food Intake 11/28/2022 21:00 11/29/2022 7:59 EST SN - Preop - CTm Pt in SDS Room 11/29/2022 7:59 11/29/2022 7:41 EST SN - CAt - Case Attendee SN - CAt - Case Attendee SN - CAt - Case Attendee SN - CAt - Case Attendee SN - CAt - Case Attendee SN - CAt - Case Attendee SN - CAt - Case Attendee SN - CAt - Case Attendee SN - CAt - Role Performed Primary Surgeon (Modified) SN - CAt - Role Performed Scrub 1 (Modified) SN - CAt - Role Performed Scrub 2 (Modified) SN - CAt - Role Performed Neon Sign Worker 1 (Modified) 11/29/2022 7:24 EST SN - Assess - LOC Alert, Awake SN - Assess - Orientation Oriented X 3 SN - Assess - Post-op Skin Integrity Intact/Dry 11/29/2022 7:23 EST SN - GCD - Post-operative Diagnosis OTHER SPECIFIED ACQUIRED DEFORMITIES OF RIGHT LOWER LEG SN - GCD - Case Level Level 3 11/29/2022 7:20 EST SN - Proc - Actual Procedure ABOVE KNEE AMPUTATION, RIGHT LEG 11/28/2022 15:15 EST Designated Person #1 We May Share LORAINE Martinez [phone] (Modified) Designated Person #1 Relationship Daughter (Modified) Surgery Scheduled On Date/Time 11/29/2022 11:00 Patient Aware Date/Time Of Surgery Yes Arrival Time the Day of Surgery 11/29/2022 8:00 Patient Aware of Arrival Time Yes Pre-Op Patient Education NPO after midnight, No smoking after midnight, No jewelry, Responsible [place] Party, Aware of surgery location, 2 bottles CHG wash with instructions given, Patient instructed to take ordered medications, VTE prevention handout given, SSI prevention handout given, MRSA protocol education provided (Modified) SN - Preprocedure Comments Spoke with patient, Verbalizes/Nonverbally indicates understanding Safety Brochure Information Reviewed Yes [facility] Video Viewed No Teaching Evaluation Verbalizes/Nonverbally indicates understanding Personal Devices, Patient Valuables Glasses Admission Note-Nursing Same Day Patient History (Modified) . Assessment and Plan [place] [employer] Anesthesiologists (ASA) physical status classification: Class III. Anesthetic Preoperative Plan Anesthetic technique: General. Induction: intravenously. Maintenance airway: Laryngeal mask airway. Regional: Adductor Canal Block, for postop pain control per Dr Lal request. Postoperative pain management: Per surgeon. Risks discussed: nausea, vomiting, headache, sore throat, dental injury, hypotension, allergic reaction, serious complications. Informed consent: signed by patient. Notes: CAD, HTN , s/p NE. s/p stent(05/2020), Cath () EF 60-65%, Hx of DVT. Digitally Signed by MICHEL AYALA MD on 11/29/2022 09:00 AM [facility] 08-16-2022 Telephone encounter Note FYI:Telephoned [facility] needed orders for billing [facility] for MRI done on 07-24-22, in conjunction which was done. [facility] received orders for billing. [facility] 08-16-2022 Miscellaneous Notes FYI:Telephoned [facility] needed orders for billing [facility] for MRI done on 07-24-22, in conjunction which was done. [facility] received orders for billing. FYI:Lissy from [facility] at left VM stating MRI of femur without contrast needs order or approved diagnosis for R femur complex regional pain. . Orders faxed to [facility]. documented in this encounter [facility] 08-15-2022 Telephone encounter Note FYI:Lissy from [facility] at left VM stating MRI of femur without contrast needs order or approved diagnosis for R femur complex regional pain. . Orders faxed to [facility]. [facility] 07-30-2022 History of Present illness Narrative 07/30/22: Patient returns today for reevaluation for left forearm weakness and pain. His last visit, we proceeded with a therapeutic and diagnostic radial tunnel injection. He states that this did provide complete relief, however for short period time. He like discuss further treatment options. He continues to state that the pain along the lateral epicondyle is doing quite well.06/07/22: Patient returns today for left elbow radial tunnel injection. During his last visit, we discussed that his symptoms could be secondary to radial tunnel syndrome. Since that time, we have had authorization from [facility] to proceed with his injection. He presents today for the injection and denies any recent injuries.04/05/22: Patient returns today for reevaluation for elbow pain and for EMG results. Patient states that his symptoms have not improved since his last visit. He continues to localize his symptoms along the dorsal aspect of his forearm. In regards to the lateral epicondyle and common extensor tendon, he feels as though this is pain-free without restriction. He is also complaining of weakness in the wrist as well.08/17/21: 61-year-old male presents with complaint of left lateral elbow pain. He did have bilateral common extensor tendon percutaneous tenotomy procedures. The right lateral elbow was performed on February 01, 2021, and the left lateral elbow was performed on March 15, 2021. Overall, he feels that he is doing quite well to this regard. However, he has developed forearm tingling and weakness that is become progressively worse of the past 2 months. He felt like this was slightly bothersome prior to the left lateral elbow percutaneous tenotomy, however has become progressively worse since that time. He states that he is having weakness with repetitive motions and wrist extension. He denies acute trauma, neck pain or stiffness. [facility] [address] DO Work Phone: 07-30-2022 History of Present illness Narrative 07/30/22: Patient returns today for reevaluation for left forearm weakness and pain. His last visit, we proceeded with a therapeutic and diagnostic radial tunnel injection. He states that this did provide complete relief, however for short period time. He like discuss further treatment options. He continues to state that the pain along the lateral epicondyle is doing quite well.06/07/22: Patient returns today for left elbow radial tunnel injection. During his last visit, we discussed that his symptoms could be secondary to radial tunnel syndrome. Since that time, we have had authorization from [facility] to proceed with his injection. He presents today for the injection and denies any recent injuries.04/05/22: Patient returns today for reevaluation for elbow pain and for EMG results. Patient states that his symptoms have not improved since his last visit. He continues to localize his symptoms along the dorsal aspect of his forearm. In regards to the lateral epicondyle and common extensor tendon, he feels as though this is pain-free without restriction. He is also complaining of weakness in the wrist as well.08/17/21: 61-year-old male presents with complaint of left lateral elbow pain. He did have bilateral common extensor tendon percutaneous tenotomy procedures. The right lateral elbow was performed on February 01, 2021, and the left lateral elbow was performed on March 15, 2021. Overall, he feels that he is doing quite well to this regard. However, he has developed forearm tingling and weakness that is become progressively worse of the past 2 months. He felt like this was slightly bothersome prior to the left lateral elbow percutaneous tenotomy, however has become progressively worse since that time. He states that he is having weakness with repetitive motions and wrist extension. He denies acute trauma, neck pain or stiffness. [facility] Work Phone: 06-19-2022 Instructions Ismael Presley DO - 06/19/2022 9:01 AM EDT Lumbar XR: This exam does not require a scheduled appointment. Please go to the nearest [facility] location for imaging at your earliest convenience. See [email or web address] for locations and operating hours. MRI R Femur: Please call [phone] option 2 to schedule the study. On the day of the exam please arrive 30 minutes before to your appointment time to fill out the MRI safety questionnaire and change into a gown. It is important that you be on time for your appointment. If you arrive late or have not followed the above prep, we may have to reschedule your examination for another day. If you are unable to keep your appointment, please notify us at least 24 hours in advance. documented in this encounter [facility] 06-19-2022 Instructions Ismael Presley DO - 06/19/2022 9:01 AM EDT Lumbar XR: This exam does not require a scheduled appointment. Please go to the nearest [facility] location for imaging at your earliest convenience. See [facility] for locations and operating hours. MRI R Femur: Please call [phone] option 2 to schedule the study. On the day of the exam please arrive 30 minutes before to your appointment time to fill out the MRI safety questionnaire and change into a gown. It is important that you be on time for your appointment. If you arrive late or have not followed the above prep, we may have to reschedule your examination for another day. If you are unable to keep your appointment, please notify us at least 24 hours in advance. documented in this encounter [facility] 06-19-2022 History of Present illness Narrative Images from the original note were not included. [facility] - Follow-up - 06/19/2022 CC: R TFA prosthetic follow up Patient was unaccompanied. The patient gave permission to discuss his medical information, including PHI, in their presence. Last Visit: 04/25/2022 initial consultation is focused on appropriateness for TMR procedure, versus other treatment options. 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 Targeted Muscle Re-innervation (TMR) surgery would accordingly by appropriate to consider, but only after diagnostic imaging (MRI or Ultrasound) to document presence/location/size of neuromas. If multiple neuromas are confirmed with imaging, then multiple TMR procedures would be indicated. Patient was cautioned that TMR is not always successful in reducing pain. - osseointegration (OI) surgery does not appear to be indicated. The primary indication for consideration of OI is inability to tolerate wearing/weight bearing in a prosthetic socket, which clearly does not apply to Mr. Martinez. OI has no specific indication or benefit with regard to neuropathic pain. - Patient has pending X-rays of his right femur ordered by Dr. Cooper, which are necessary to correlate with imaging of his potential neuromas. - suggested a trial of flexeril ER 15 mg to take at bedtime to try to improve his sleep. - On a side note, with a knee disarticulation prosthesis, the torque incurred with ambulation is transmitted directly to the right hip, and may be the cause of Mr. Martinez's back pain after prolonged ambulation. Suggest consideration of adding a torque adaptor to his prosthesis. Interval: Since last seen, L arm cubital tunnel injection. TMR surgery is still pending, when he met with surgeons last time there was discussion of OI. Endorses ongoing pain at distal residual limb (Pain did not start until about ~1 year after anastasiia-richards). Subjectively feels sensation of 2 screws a bolt right behind the knee cap at distal residual limb, with intermittent associated posterior thigh pain ~posterior midthigh. There is also Knife-like, shooting pain to the distal residual limb. He reports that some of the posterior shooting pain is worse when he takes off his prosthesis. Notes frustration with the prosthetic. In last month lost 21 lbs, unintentionally from personal life stress, anticipates he will regain some weight. Initially only needed 1 ply and today wearing 15 ply. Socket has had ongoing adjustments and there is some impingement in the groin. When walking, sometimes feels twisting in the socket. Feels like the old mechanical knee is easier to use than current microprocessor knee. Despite this he wears his prosthesis 7 days per week most of the day. He is community ambulator and does not require assistive device. He has had some falls. Prosthetic History: Date of Amputation: DOI 05/20/2011, s/p multiple salvage procedures, s/p right TT amputation 2011 c/b pain and HO, s/p Andrew 2017 Reason for Amputation: work crush injury Side: right Type: Andrew (fusion of patella to distal femur) [facility]: [id number] DOI: 05/20/2011 Current prosthesis: Age of Current Prosthesis: patient unsure Socket: hybrid ischial containment Liner: seal in gel Suspension: seal in with boa Knee Components: C4 microprocessor Ankle Components: dynamic response Vendor: [facility] PMH: Past Medical History: Diagnosis Date Anxiety Elevated BP Hypercholesteremia Infection of amputation stump (HCC) Myocardial infarct (HCC) 05/2020 Open right fibular fracture PONV (postoperative nausea and vomiting) S/P insertion of spinal cord stimulator 10/22/2016 PSH: Past Surgical History: Procedure Laterality Date AMPUTATION OF LOWER LEG. 143132 11/2013 AMPUTATION, BELOW KNEE Right 04/26/2014 Procedure: AMPUTATION, BELOW KNEE; Surgeon: Dayna Quintanilla MD; Location: PERIOPERATIVE SERVICES; Service: Orthopaedics ANKLE SURGERY 10/2009 CARDIAC CATH PROCEDURE 06/04/2020 x2 stents COLONOSCOPY ELBOW SURGERY Bilateral no hardware EXCISION, GANGLION Left 07/17/2021 Procedure: EXCISION, GANGLION; Surgeon: Dayna Bush MD; Location: [facility]; Service: Orthopaedics HAND LEFT surgery inguinal surgery INSERTION, STIMULATOR, EPIDURAL Bilateral 10/08/2016 REMOVED per pt Procedure: INSERTION, STIMULATOR, EPIDURAL; Surgeon: Mamta Jack MD; Location: [facility] [place]; Service: Anesthesia INSERTION, STIMULATOR, EPIDURAL TRIAL Bilateral 07/30/2016 Procedure: INSERTION, STIMULATOR, EPIDURAL TRIAL; Surgeon: Mamta Jack MD; Location: [facility] [place]; Service: Anesthesia REMOVAL, FOREIGN BODY Right 04/26/2014 Procedure: REMOVAL, FOREIGN BODY; Surgeon: Dayna Quintanilla MD; Location: PERIOPERATIVE SERVICES; Service: Orthopaedics Social History: Social History Socioeconomic History Marital status: Tobacco Use Smoking status: Former Packs/day: 1.00 Years: 20.00 Pack years: 20.00 Types: Cigarettes Quit date: 01/19/2011 Years since quittin.4 Smokeless tobacco: Never Substance and Sexual Activity Alcohol use: Yes Alcohol/week: 0.0 standard drinks Comment: once a year Drug use: No Medications: Current Outpatient Medications Medication Sig Dispense Refill Cyclobenzaprine HCl (Amrix) 15 MG CP24 Take 15 mg by mouth at bedtime. 30 Capsule 2 aspirin 81 MG enteric coated tablet Take 81 mg by mouth daily. metoprolol (LOPRESSOR) 25 MG tablet Take 25 mg by mouth 2 times daily. rosuvastatin (CRESTOR) 40 MG tablet Take 40 mg by mouth every evening. clopidogrel (PLAVIX) 75 MG tablet Take 75 mg by mouth daily. nabumetone 750 MG tablet Take 1 Tablet by mouth 2 times daily. 60 Tablet 5 diclofenac (FLECTOR) 1.3 % patch Place 1 Patch on the skin 2 times daily. apply to painful area 30 Patch 5 lidocaine (LIDODERM) 5 % patch Place 1 Patch on the skin every 24 hours. 30 Patch 5 duloxetine (CYMBALTA) 20 MG capsule Take 20 mg by mouth daily. No current facility-administered medications for this visit. Allergies: Allergies Allergen Reactions Salicylates Other reaction(s): GI Upset Atorvastatin Myalgias Simvastatin Myalgias Review Of Systems: Skin: negative Eyes: negative review of symptoms Ears/Nose/Throat: negative Respiratory: negative symptoms (no cough, hemoptysis, SOB, BALDERAS, PND, wheezing) Cardiovascular: negative symptoms (No CP/Pressure/Tightness, palpitations, orthopnea, PND, SOB, BALDERAS, edema, MCMULLEN or vision change) Gastrointestinal: negative symptoms (no abdominal pain, anorexia, n/v, indigestion, constipation, or diarrhea) Genitourinary: no urinary symptoms Neurologic: paresthesia MSK: s/p amputation, residual limb and phantom pain Psychiatric: negative (no sleep disturbance, anxiety, memory loss, disorientation, inattention, feelings of depression) Hematologic/Lymphatic/Immunologi c: negative (no anemia, bleeding, bruising) Endocrine: negative review of symptoms PHYSICAL EXAM VITALS: BP 113/86 Pulse 71 GEN APPEARANCE: Alert, oriented, in no acute distress. PSYCH: Appropriate mood and affect. RESP: Regular, unlabored respirations. CARDIO: RR. MUSCULOSKELETAL: There is no pain with active shoulder flexion or abduction. left Intact Lower Extremity: Distal pulses are palpable and extremity is warm to touch. There is no skin break down or rashes. Hip and knee ROM is intact VS. Residual Limb: The right Transfemoral residual limb length is approximately 90 % of the contralateral side. The shape of the residual limb is cylindrical. Residual limb circumference, measured 4cm proximal to the distal limb was not obtained today. The operative incision is well healed. There is good mobility of skin to bone. There is area of tenderness on palpation of the anterior thigh over the femoral nerve aspect, and posterior thigh over the mid-sciatic course. On further skin examination, there is no edema, rash, and breakdown. Prosthesis: Seal in liner with 15 ply, narrow ML ischial containment socket with boa, no fenestrations NEUROLOGIC: Orientation: the patient is alert, is able to relay appropriate history, and is able to ramonita the prosthetic independently. Sensory Examination: There is not focal sensory loss in the residual limb. Gait: Antalgic gait with decreased step length on the left, right medial heel whip. No assistive device. Functional examination: The patient can sit upright independently. The patient can perform a sit to stand transfer with no device assistive device. ASSESSMENT: John Martinez is a 52 year old year old male with a past medical history of severe work related crush injury to his right lower extremity, who ultimately underwent right gritti-richards amputation in 2018. His course has been complicated by chronic residual limb muscle spasms and pain despite multiple prosthetic modifications. He presents today as a follow up consultation regarding the appropriateness of TMR procedure versus other treatment options. The patient was previously seen by Dr. Estela Fontenot, who was present throughout the follow up evaluation today. Prior to invasive measures, we do feel there is some room for prosthetic modification. This includes transition to a fenestrated socket which may provide more comfort, adjustment in the alignment (medial heel whipping noted today), and the addition of a torsion adaptor which we typically recommend for knee disarticulation and proximal amputations. He would also benefit from a new socket at this time as he has lost 21 pounds and is up to 15 sock ply without proper fit. Could consider second opinion prosthetic evaluation for further management (can trial [facility] who per discussion today the patient would be able to travel to). TMR surgery continues to be an appropriate consideration, as he appears to have focal areas of tenderness over both the femoral and sciatic aspects of the residual limb. Would first need to confirm the presence of any neuroma, for which MR imaging C9 request was placed today. XR does not demonstrate any fracture, but does appear that the hardware nails may be structurally placed in a way that could also be leading to pain. If TMR pursued, consideration of hardware removal may also be considered at the discretion of the surgeon. In addition to the above, there is one frequent pain that he describes today (posterior hamstring shooting pain that flares when the prosthetic is not in place) that does not appear typical of prosthetic pain, but instead may represent radicular pain from the lumbar spine. Recommend XR lumbar spine for further evaluation. We continue to feel that osseointegration (OI) surgery is not indicated - the primary indication for this is inability to tolerate weight bearing in a prosthetic socket, which is not the case here. If residual limb surgical options were pursued, would favor conversion from gritti-richards to a standard length transfemoral amputation before pursuing an option such as OI. Plan: Consider second opinion with [facility] for socket modification to fenestrated style, addition of torsion adaptor, and alignment modifications Imaging: - Recommend MRI for eval of neuroma and possible surgical planning for TMR (pain is in both femoral and sciatic distributions), will place C9 today - L-spine XR AP and Lat given radicular symptoms of RLE Once the above is completed, consider new course of physical therapy for lumbar spine and prosthetic training, as well as surgical referral for TMR with consideration of hardware removal Workers [facility]: [phone] DOI: 05/20/2011 - Follows with outside provider for this Return to clinic in 3 months The plan was discussed with the patient and he reports full understanding. Patient seen and plan discussed with Dr. Chaves and Dr. Fontenot, Attending physicians and Ismael Kwok, director of psychology. Ismael Presley, DO Physical Medicine and Rehabilitation, PGY-4 Attending Physician: I saw and examined this patient, and discussed the case in detail with Dr. Presley. I personally obtained the bowser and critical elements of the history and physical exam. The history/exam findings and plan of care, as documented above, include my findings and input. Will see in follow-up in 3 months. The patient indicates understanding and agreement with the plan of care as outlined. Ashwini Chaves MD This evaluation was submitted and electronically signed by Ashwini Chaves MD. Patient was identified by name and date of . Sharlene Carolina <!--EPICS-->Patient in exam room, vital signs taken, ready for MD exam.
<!--EPICE--> Patient at risk for falls:No Falls Risk protocol implemented: No documented in this encounter [facility] 06-19-2022 History of Present illness Narrative Images from the original note were not included. [facility] - Follow-up - 06/19/2022 CC: R TFA prosthetic follow up Patient was unaccompanied. The patient gave permission to discuss his medical information, including PHI, in their presence. Last Visit: 04/25/2022 initial consultation is focused on appropriateness for TMR procedure, versus other treatment options. 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 Targeted Muscle Re-innervation (TMR) surgery would accordingly by appropriate to consider, but only after diagnostic imaging (MRI or Ultrasound) to document presence/location/size of neuromas. If multiple neuromas are confirmed with imaging, then multiple TMR procedures would be indicated. Patient was cautioned that TMR is not always successful in reducing pain. - osseointegration (OI) surgery does not appear to be indicated. The primary indication for consideration of OI is inability to tolerate wearing/weight bearing in a prosthetic socket, which clearly does not apply to Mr. Martinez. OI has no specific indication or benefit with regard to neuropathic pain. - Patient has pending X-rays of his right femur ordered by Dr. Cooper, which are necessary to correlate with imaging of his potential neuromas. - suggested a trial of flexeril ER 15 mg to take at bedtime to try to improve his sleep. - On a side note, with a knee disarticulation prosthesis, the torque incurred with ambulation is transmitted directly to the right hip, and may be the cause of Mr. Martinez's back pain after prolonged ambulation. Suggest consideration of adding a torque adaptor to his prosthesis. Interval: Since last seen, L arm cubital tunnel injection. TMR surgery is still pending, when he met with surgeons last time there was discussion of OI. Endorses ongoing pain at distal residual limb (Pain did not start until about ~1 year after gritti-richards). Subjectively feels sensation of 2 screws a bolt right behind the knee cap at distal residual limb, with intermittent associated posterior thigh pain ~posterior midthigh. There is also Knife-like, shooting pain to the distal residual limb. He reports that some of the posterior shooting pain is worse when he takes off his prosthesis. Notes frustration with the prosthetic. In last month lost 21 lbs, unintentionally from personal life stress, anticipates he will regain some weight. Initially only needed 1 ply and today wearing 15 ply. Socket has had ongoing adjustments and there is some impingement in the groin. When walking, sometimes feels twisting in the socket. Feels like the old mechanical knee is easier to use than current microprocessor knee. Despite this he wears his prosthesis 7 days per week most of the day. He is community ambulator and does not require assistive device. He has had some falls. Prosthetic History: Date of Amputation: DOI 05/20/2011, s/p multiple salvage procedures, s/p right TT amputation 2011 c/b pain and HO, s/p Andrew 2017 Reason for Amputation: work crush injury Side: right Type: Andrew (fusion of patella to distal femur) [facility]: [id number] DOI: 05/20/2011 Current prosthesis: Age of Current Prosthesis: patient unsure Socket: hybrid ischial containment Liner: seal in gel Suspension: seal in with boa Knee Components: C4 microprocessor Ankle Components: dynamic response Vendor: [email or web address] PMH: Past Medical History: Diagnosis Date Anxiety Elevated BP Hypercholesteremia Infection of amputation stump (HCC) Myocardial infarct (HCC) 05/2020 Open right fibular fracture PONV (postoperative nausea and vomiting) S/P insertion of spinal cord stimulator 10/22/2016 PSH: Past Surgical History: Procedure Laterality Date AMPUTATION OF LOWER LEG. 416655 11/2013 AMPUTATION, BELOW KNEE Right 04/26/2014 Procedure: AMPUTATION, BELOW KNEE; Surgeon: Dayna Quintanilla MD; Location: PERIOPERATIVE SERVICES; Service: Orthopaedics ANKLE SURGERY 10/2009 CARDIAC CATH PROCEDURE 06/04/2020 x2 stents COLONOSCOPY ELBOW SURGERY Bilateral no hardware EXCISION, GANGLION Left 07/17/2021 Procedure: EXCISION, GANGLION; Surgeon: Dayna Bush MD; Location: [facility] [place]; Service: Orthopaedics HAND LEFT surgery inguinal surgery INSERTION, STIMULATOR, EPIDURAL Bilateral 10/08/2016 REMOVED per pt Procedure: INSERTION, STIMULATOR, EPIDURAL; Surgeon: Mamta Jack MD; Location: [facility] [place]; Service: Anesthesia INSERTION, STIMULATOR, EPIDURAL TRIAL Bilateral 07/30/2016 Procedure: INSERTION, STIMULATOR, EPIDURAL TRIAL; Surgeon: Mamta Jack MD; Location: [facility] [place]; Service: Anesthesia REMOVAL, FOREIGN BODY Right 04/26/2014 Procedure: REMOVAL, FOREIGN BODY; Surgeon: Dayna Quintanilla MD; Location: PERIOPERATIVE SERVICES; Service: Orthopaedics Social History: Social History Socioeconomic History Marital status: Tobacco Use Smoking status: Former Packs/day: 1.00 Years: 20.00 Pack years: 20.00 Types: Cigarettes Quit date: 01/19/2011 Years since quittin.4 Smokeless tobacco: Never Substance and Sexual Activity Alcohol use: Yes Alcohol/week: 0.0 standard drinks Comment: once a year Drug use: No Medications: Current Outpatient Medications Medication Sig Dispense Refill Cyclobenzaprine HCl (Amrix) 15 MG CP24 Take 15 mg by mouth at bedtime. 30 Capsule 2 aspirin 81 MG enteric coated tablet Take 81 mg by mouth daily. metoprolol (LOPRESSOR) 25 MG tablet Take 25 mg by mouth 2 times daily. rosuvastatin (CRESTOR) 40 MG tablet Take 40 mg by mouth every evening. clopidogrel (PLAVIX) 75 MG tablet Take 75 mg by mouth daily. nabumetone 750 MG tablet Take 1 Tablet by mouth 2 times daily. 60 Tablet 5 diclofenac (FLECTOR) 1.3 % patch Place 1 Patch on the skin 2 times daily. apply to painful area 30 Patch 5 lidocaine (LIDODERM) 5 % patch Place 1 Patch on the skin every 24 hours. 30 Patch 5 duloxetine (CYMBALTA) 20 MG capsule Take 20 mg by mouth daily. No current facility-administered medications for this visit. Allergies: Allergies Allergen Reactions Salicylates Other reaction(s): GI Upset Atorvastatin Myalgias Simvastatin Myalgias Review Of Systems: Skin: negative Eyes: negative review of symptoms Ears/Nose/Throat: negative Respiratory: negative symptoms (no cough, hemoptysis, SOB, BALDERAS, PND, wheezing) Cardiovascular: negative symptoms (No CP/Pressure/Tightness, palpitations, orthopnea, PND, SOB, BALDERAS, edema, MCMULLEN or vision change) Gastrointestinal: negative symptoms (no abdominal pain, anorexia, n/v, indigestion, constipation, or diarrhea) Genitourinary: no urinary symptoms Neurologic: paresthesia MSK: s/p amputation, residual limb and phantom pain Psychiatric: negative (no sleep disturbance, anxiety, memory loss, disorientation, inattention, feelings of depression) Hematologic/Lymphatic/Immunologi c: negative (no anemia, bleeding, bruising) Endocrine: negative review of symptoms PHYSICAL EXAM VITALS: BP 113/86 Pulse 71 GEN APPEARANCE: Alert, oriented, in no acute distress. PSYCH: Appropriate mood and affect. RESP: Regular, unlabored respirations. CARDIO: RR. MUSCULOSKELETAL: There is no pain with active shoulder flexion or abduction. left Intact Lower Extremity: Distal pulses are palpable and extremity is warm to touch. There is no skin break down or rashes. Hip and knee ROM is intact VS. Residual Limb: The right Transfemoral residual limb length is approximately 90 % of the contralateral side. The shape of the residual limb is cylindrical. Residual limb circumference, measured 4cm proximal to the distal limb was not obtained today. The operative incision is well healed. There is good mobility of skin to bone. There is area of tenderness on palpation of the anterior thigh over the femoral nerve aspect, and posterior thigh over the mid-sciatic course. On further skin examination, there is no edema, rash, and breakdown. Prosthesis: Seal in liner with 15 ply, narrow ML ischial containment socket with boa, no fenestrations NEUROLOGIC: Orientation: the patient is alert, is able to relay appropriate history, and is able to ramonita the prosthetic independently. Sensory Examination: There is not focal sensory loss in the residual limb. Gait: Antalgic gait with decreased step length on the left, right medial heel whip. No assistive device. Functional examination: The patient can sit upright independently. The patient can perform a sit to stand transfer with no device assistive device. ASSESSMENT: John Martinez is a 52 year old year old male with a past medical history of severe work related crush injury to his right lower extremity, who ultimately underwent right gritti-richards amputation in 2018. His course has been complicated by chronic residual limb muscle spasms and pain despite multiple prosthetic modifications. He presents today as a follow up consultation regarding the appropriateness of TMR procedure versus other treatment options. The patient was previously seen by Dr. Estela Fontenot, who was present throughout the follow up evaluation today. Prior to invasive measures, we do feel there is some room for prosthetic modification. This includes transition to a fenestrated socket which may provide more comfort, adjustment in the alignment (medial heel whipping noted today), and the addition of a torsion adaptor which we typically recommend for knee disarticulation and proximal amputations. He would also benefit from a new socket at this time as he has lost 21 pounds and is up to 15 sock ply without proper fit. Could consider second opinion prosthetic evaluation for further management (can trial [facility] who per discussion today the patient would be able to travel to). TMR surgery continues to be an appropriate consideration, as he appears to have focal areas of tenderness over both the femoral and sciatic aspects of the residual limb. Would first need to confirm the presence of any neuroma, for which MR imaging C9 request was placed today. XR does not demonstrate any fracture, but does appear that the hardware nails may be structurally placed in a way that could also be leading to pain. If TMR pursued, consideration of hardware removal may also be considered at the discretion of the surgeon. In addition to the above, there is one frequent pain that he describes today (posterior hamstring shooting pain that flares when the prosthetic is not in place) that does not appear typical of prosthetic pain, but instead may represent radicular pain from the lumbar spine. Recommend XR lumbar spine for further evaluation. We continue to feel that osseointegration (OI) surgery is not indicated - the primary indication for this is inability to tolerate weight bearing in a prosthetic socket, which is not the case here. If residual limb surgical options were pursued, would favor conversion from gritti-richards to a standard length transfemoral amputation before pursuing an option such as OI. Plan: Consider second opinion with [facility] for socket modification to fenestrated style, addition of torsion adaptor, and alignment modifications Imaging: - Recommend MRI for eval of neuroma and possible surgical planning for TMR (pain is in both femoral and sciatic distributions), will place C9 today - L-spine XR AP and Lat given radicular symptoms of RLE Once the above is completed, consider new course of physical therapy for lumbar spine and prosthetic training, as well as surgical referral for TMR with consideration of hardware removal Workers [facility]: [phone] DOI: 05/20/2011 - Follows with outside provider for this Return to clinic in 3 months The plan was discussed with the patient and he reports full understanding. Patient seen and plan discussed with Dr. Chaves and Dr. Fontenot, Attending physicians and Ismael Kwok, director of psychology. Ismael Presley, DO Physical Medicine and Rehabilitation, PGY-4 Attending Physician: I saw and examined this patient, and discussed the case in detail with Dr. Presley. I personally obtained the bowser and critical elements of the history and physical exam. The history/exam findings and plan of care, as documented above, include my findings and input. Will see in follow-up in 3 months. The patient indicates understanding and agreement with the plan of care as outlined. Ashwini Chaves MD This evaluation was submitted and electronically signed by Ashwini Chaves MD. Patient was identified by name and date of . Sharlene Carolina <!--EPICS-->Patient in exam room, vital signs taken, ready for MD exam.
<!--EPICE--> Patient at risk for falls:No Falls Risk protocol implemented: No documented in this encounter [facility] 05-23-2022 Note Addended by: ESTELA FONTENOT on: 05/23/2022 12:47 PM Modules accepted: Orders [facility] 05-23-2022 Miscellaneous Notes Addended by: ESTELA FONTENOT on: 05/23/2022 12:47 PM Modules accepted: Orders documented in this encounter [facility] 04-25-2022 Note PM AND R Amputee Cli puneet - Consultation - 04/25/22 Referral Source: Hao Cooper MD Last Visit: 03/19/12 - [facility] [place] Operator: [facility]: [phone] DOI: 05/20/2011 CC: Right knee disarticulation amputation, complicated by transfemoral amputation chronic neuropathic pain HPI: Mr. John Martinez is seen today on referral from Dr. Hao Cooper for consultation/second opinion relating to his amputation and chronic pain. He was previously evaluated in this clinic in 2011 for an Independent Medical Examination related to prosthetic prescription. He is a 51 year old male who suffered a workplace injury on 05/20/11 with severe crush injury of his RLE. He underwent multiple surgical procedures to salvage the RLE, but required transtibial amputation in 2011. However he continued to experience problems with delayed wound healing and significant heterotopic ossification requiring several additional surgical procedures, culminating in a knee disarticulation amputation in 2018 with Saeiditti-Richards procedure (fusion of patella to distal femur). He was fitted with a microprocessor knee prosthesis, and is independent in ambulation with no assistive devices. However he relates a long history of chronic/severe neuropathic pain of his residual limb, with no significant or sustained relief from a variety of medications (including gabapentin, pregabalin, cymbalta, various antidepressants, and opioids - he states he experienced significant side effects from many of these medications which limited their use; he does not like taking medications in any case). He underwent implantation of a spinal cord stimulator in 2017, which was later removed due to lack of benefit. He also underwent a trial of dorsal root ganglion stimulation, with some benefit. He has been recently evaluated with recommendation for TMR (Targeted Muscle Re-innervation) surgery, as well as consideration of [place]-integration surgery. This consultation is focused on appropriateness of these procedures, as well as any alternative treatment options. Of note is that he has experienced recent complications of a myocardial infarction in May, requiring two stents, and resection of a left ankle subtalar ganglion on 07/17/21. He has been evaluated/treated by numerous clinicians in multiple health systems over the past eleven years. Patient wears his prosthesis all day every day and tries to be active - he notes low back pain after prolonged standing/ambulation. He has undergone multiple socket modifications to try to improve fit/comfort, with limited success. He reports his residual limb will frequently spasm, lasting up to 10 seconds, multiple times during the day/night. These are associated with pain up to 10/10 in severity - he describes the pain as cramping, burning and/or stabbing in nature. Has gone to the ED three times for this issue, treated with flexeril with some relief. States spasms happen almost everyday but the severe ones at least once a week. Sometimes initiated with straining. Flexeril has helped. Also has constant phantom pain of RLE. Rates 4/10 in severity. Worse at night. He has tried massaging/tapping, mirror therapy, heat, cold, TENS, keven wrapping, band exercises. He notes several specific tender areas that trigger the pain/spasms. When he takes prosthetic off, he states that he can feel the screws (referring to the surgical screw fixating the patella to the distal femur). Due to the spasms and pain patient is only able to sleep 4 hours a night on average. Patient reports doctors at [facility] stated that he was a candidate for TMR (targeted muscle reinnervation) to help with spasms and phantom limb pain. Patient understands that it would not completely remove his pain symptoms but would likely decrease it per [facility] doctors. Although he is not thrilled with yet another surgical procedure, he is willing if there is potential to decrease his muscle spasms and pain. There was also discussion of potential for osseointegration surgery. PMH: Past Medical History: Diagnosis Date * Anxiety * Elevated BP * Hypercholesteremia * Infection of amputation stump (HCC) * Myocardial infarct (HCC) 05/2020 * Open right fibular fracture * PONV (postoperative nausea and vomiting) * S/P insertion of spinal cord stimulator 10/22/2016 PSH: Past Surgical History: Procedure Laterality Date * AMPUTATION OF LOWER LEG. [id number] 11/2013 * AMPUTATION, BELOW KNEE Right 04/26/2014 Procedure: AMPUTATION, BELOW KNEE; Surgeon: Dayna Quintanilla MD; Location: PERIOPERATIVE SERVICES; Service: Orthopaedics * ANKLE SURGERY 10/2009 * CARDIAC CATH PROCEDURE 06/04/2020 x2 stents * COLONOSCOPY * ELBOW SURGERY Bilateral no hardware * EXCISION, GANGLION Left 07/17/2021 Procedure: EXCISION, GANGLION; Surgeon: Dayna Bush MD; Location: [facility]; Service: Orthopaedics * HAND LEFT surgery * ingu (more content not included)... [facility] [employer] [facility] 04-25-2022 Instructions Lamine Sewell MD - 04/25/2022 11:31 AM EDT - trial cyclobenzaprine 15 mg ER nightly - if this does not work or makes you feel nauseous, trial 2-3 tabs of flexeril 5 mg nightly - TMR surgery is worth giving trial to decrease pain and discomfort - X-ray R femur ordered if you want to get image at [facility] documented in this encounter [facility] 04-25-2022 History of Present illness Narrative Images from the original note were not included. [facility] - Consultation - 04/25/22 Referral Source: Hao Cooper MD Last Visit: 03/19/12 - MISSAEL Dixonac Operator: Narendra Sing[employer]ics [facility]: [id number] DOI: 05/20/2011 CC: Right knee disarticulation amputation, complicated by transfemoral amputation chronic neuropathic pain HPI: Mr. John Martinez is seen today on referral from Dr. Hao Cooper for consultation/second opinion relating to his amputation and chronic pain. He was previously evaluated in this clinic in 2012 for an Independent Medical Examination related to prosthetic prescription. He is a 51 year old male who suffered a workplace injury on 05/20/11 with severe crush injury of his RLE. He underwent multiple surgical procedures to salvage the RLE, but required transtibial amputation in 2011. However he continued to experience problems with delayed wound healing and significant heterotopic ossification requiring several additional surgical procedures, culminating in a knee disarticulation amputation in 2018 with Gritti-Richards procedure (fusion of patella to distal femur). He was fitted with a microprocessor knee prosthesis, and is independent in ambulation with no assistive devices. However he relates a long history of chronic/severe neuropathic pain of his residual limb, with no significant or sustained relief from a variety of medications (including gabapentin, pregabalin, cymbalta, various antidepressants, and opioids - he states he experienced significant side effects from many of these medications which limited their use; he does not like taking medications in any case). He underwent implantation of a spinal cord stimulator in 2016, which was later removed due to lack of benefit. He also underwent a trial of dorsal root ganglion stimulation, with some benefit. He has been recently evaluated with recommendation for TMR (Targeted Muscle Re-innervation) surgery, as well as consideration of [place]-integration surgery. This consultation is focused on appropriateness of these procedures, as well as any alternative treatment options. Of note is that he has experienced recent complications of a myocardial infarction in May, requiring two stents, and resection of a left ankle subtalar ganglion on 07/17/21. He has been evaluated/treated by numerous clinicians in multiple health systems over the past eleven years. Patient wears his prosthesis all day every day and tries to be active - he notes low back pain after prolonged standing/ambulation. He has undergone multiple socket modifications to try to improve fit/comfort, with limited success. He reports his residual limb will frequently spasm, lasting up to 10 seconds, multiple times during the day/night. These are associated with pain up to 10/10 in severity - he describes the pain as cramping, burning and/or stabbing in nature. Has gone to the ED three times for this issue, treated with flexeril with some relief. States spasms happen almost everyday but the severe ones at least once a week. Sometimes initiated with straining. Flexeril has helped. Also has constant phantom pain of RLE. Rates 4/10 in severity. Worse at night. He has tried massaging/tapping, mirror therapy, heat, cold, TENS, keven wrapping, band exercises. He notes several specific tender areas that trigger the pain/spasms. When he takes prosthetic off, he states that he can feel the screws (referring to the surgical screw fixating the patella to the distal femur). Due to the spasms and pain patient is only able to sleep 4 hours a night on average. Patient reports doctors at [facility] stated that he was a candidate for TMR (targeted muscle reinnervation) to help with spasms and phantom limb pain. Patient understands that it would not completely remove his pain symptoms but would likely decrease it per [facility] doctors. Although he is not thrilled with yet another surgical procedure, he is willing if there is potential to decrease his muscle spasms and pain. There was also discussion of potential for osseointegration surgery. PMH: Past Medical History: Diagnosis Date Anxiety Elevated BP Hypercholesteremia Infection of amputation stump (HCC) Myocardial infarct (HCC) 05/2020 Open right fibular fracture PONV (postoperative nausea and vomiting) S/P insertion of spinal cord stimulator 10/22/2016 PSH: Past Surgical History: Procedure Laterality Date AMPUTATION OF LOWER LEG. [id number] 11/2013 AMPUTATION, BELOW KNEE Right 04/26/2014 Procedure: AMPUTATION, BELOW KNEE; Surgeon: Dayna Quintanilla MD; Location: PERIOPERATIVE SERVICES; Service: Orthopaedics ANKLE SURGERY 10/2009 CARDIAC CATH PROCEDURE 06/04/2020 x2 stents COLONOSCOPY ELBOW SURGERY Bilateral no hardware EXCISION, GANGLION Left 07/17/2021 Procedure: EXCISION, GANGLION; Surgeon: Dayna Bush MD; Location: [facility]; Service: Orthopaedics HAND LEFT surgery inguinal surgery INSERTION, STIMULATOR, EPIDURAL Bilateral 10/08/2016 REMOVED per pt Procedure: INSERTION, STIMULATOR, EPIDURAL; Surgeon: Mamta Jack MD; Location: [facility]; Service: Anesthesia INSERTION, STIMULATOR, EPIDURAL TRIAL Bilateral 07/30/2016 Procedure: INSERTION, STIMULATOR, EPIDURAL TRIAL; Surgeon: Mamta Jack MD; Location[facility]; Service: Anesthesia REMOVAL, FOREIGN BODY Right 04/26/2014 Procedure: REMOVAL, FOREIGN BODY; Surgeon: Dayna Quintanilla MD; Location: PERIOPERATIVE SERVICES; Service: Orthopaedics Family History: No family history on file. Social History: Social History Socioeconomic History Marital status: Tobacco Use Smoking status: Former Smoker Packs/day: 1.00 Years: 20.00 Pack years: 20.00 Types: Cigarettes Quit date: 01/19/2011 Years since quittin.2 Smokeless tobacco: Never Used Substance and Sexual Activity Alcohol use: Yes Alcohol/week: 0.0 standard drinks Comment: once a year Drug use: No Allergies: Allergies Allergen Reactions Salicylates Other reaction(s): GI Upset Atorvastatin Myalgias Simvastatin Myalgias Labs: CBC (last 3 years, up to 5 values) None Basic Metabolic Panel None Medications: Current Outpatient Medications Medication Sig Dispense Refill aspirin 81 MG enteric coated tablet Take 81 mg by mouth daily. metoprolol (LOPRESSOR) 25 MG tablet Take 25 mg by mouth 2 times daily. rosuvastatin (CRESTOR) 40 MG tablet Take 40 mg by mouth every evening. clopidogrel (PLAVIX) 75 MG tablet Take 75 mg by mouth daily. nabumetone 750 MG tablet Take 1 Tablet by mouth 2 times daily. 60 Tablet 5 diclofenac (FLECTOR) 1.3 % patch Place 1 Patch on the skin 2 times daily. apply to painful area 30 Patch 5 lidocaine (LIDODERM) 5 % patch Place 1 Patch on the skin every 24 hours. 30 Patch 5 duloxetine (CYMBALTA) 20 MG capsule Take 20 mg by mouth daily. No current facility-administered medications for this visit. Functional Status: The patient is able to ambulate and perform activities of daily living without assistive devices. Work Status: on disability. Review of Systems: General: Denies fevers, chills Skin: Denies rashes ulcerations or lesions HEENT: Denies vertigo Cardio: Denies chest pain Respiratory: Denies SOB GI: Denies incontinence, other complaints : Denies incontinence, other complaints MSK: as per HPI Neuro: as Per HPI Psychiatric: Denies changes in mood Physical Examination: VITALS: Vitals: 04/25/22 1038 BP: 108/77 Pulse: 71 GEN APPEARANCE: Pleasant, well developed, well nourished in no acute distress; Alert and Oriented x3 PSYCH: Normal mood and affect RESP: Breathing non-labored HEART: Regular rate and rhythm LLE: Healed incision from ganglion resection. Full ROM, intact strength. Right KD residual limb: Skin intact. Posterior incision. No vasomotor changes noted. Full knee ROM. Intact hip girdle strength. No focal tenderness to palpation over distal femur, but marked tenderness to palpation over posterior thigh (sciatic nerve region) and on distal anterior thigh (femoral nerve region). Prosthesis: Hybrid ischial containment socket with seal-in gel liner, C4 microprocessor knee, dynamic response foot. Of note there is no torque adaptor. Gait: Reciprocal but asymmetric gait pattern, no assistive device. Imaging: None IMPRESSION: John Martinez is a 51 year old male s/p right Knee Disarticulation amputation due to complications from a work injury with severe crush injury of his RLE, complicated by chronic severe residual limb muscle spasms and related neuropathic pain. Consultation is focused on appropriateness for TMR procedure, versus other treatment options. 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 Targeted Muscle Re-innervation (TMR) surgery would accordingly by appropriate to consider, but only after diagnostic imaging (MRI or Ultrasound) to document presence/location/size of neuromas. If multiple neuromas are confirmed with imaging, then multiple TMR procedures would be indicated. Patient was cautioned that TMR is not always successful in reducing pain. With regard to the suggestion of osseointegration (OI) surgery, this does not appear to be indicated. The primary indication for consideration of OI is inability to tolerate wearing/weight bearing in a prosthetic socket, which clearly does not apply to Mr. Martinez. OI has no specific indication or benefit with regard to neuropathic pain. Patient has pending X-rays of his right femur ordered by Dr. Cooper, which are necessary to correlate with imaging of his potential neuromas. Similar order placed if patient finds it more convenient to go to a [facility] facility for the X-rays. Also, since he noted benefit of administration of flexeril in the ED to relieve his muscle spasms, I suggested a trial of flexeril ER 15 mg to take at bedtime to try to improve his sleep. On a side note, with a knee disarticulation prosthesis, the torque incurred with ambulation is transmitted directly to the right hip, and may be the cause of Mr. Martinez's back pain after prolonged ambulation. Suggest consideration of adding a torque adaptor to his prosthesis. These recommendations were discussed in detail with the patient and he reports full understanding. The patient was seen and examined, and the plan was discussed with attending physician Dr. Jesus Sewell MD PG-3 PM&R Resident Attending Physician: I saw and examined this patient, and discussed the case in detail with Dr. Sewell. I personally obtained the bowser and critical elements of the history and physical exam. The history/exam findings and recommendations, as documented above, include my findings and input. The patient indicates understanding and agreement with the plan of care as outlined. Thank you, Dr. Cooper, for the opportunity to assist with the care of your patient. Estela Fontenot MD This evaluation was submitted and electronically signed by Estela Fontenot MD. Patient was identified by name and date of . Sharlene Carolina Patient in exam room, vital signs taken, ready for MD exam. Patient at risk for falls:No Falls Risk protocol implemented: No documented in this encounter [facility] 04-05-2022 History of Present illness Narrative 04/05/22: Patient returns today for reevaluation for elbow pain and for EMG results. Patient states that his symptoms have not improved since his last visit. He continues to localize his symptoms along the dorsal aspect of his forearm. In regards to the lateral epicondyle and common extensor tendon, he feels as though this is pain-free without restriction. He is also complaining of weakness in the wrist as well.08/17/21: 61-year-old male presents with complaint of left lateral elbow pain. He did have bilateral common extensor tendon percutaneous tenotomy procedures. The right lateral elbow was performed on February 01, 2021, and the left lateral elbow was performed on March 15, 2021. Overall, he feels that he is doing quite well to this regard. However, he has developed forearm tingling and weakness that is become progressively worse of the past 2 months. He felt like this was slightly bothersome prior to the left lateral elbow percutaneous tenotomy, however has become progressively worse since that time. He states that he is having weakness with repetitive motions and wrist extension. He denies acute trauma, neck pain or stiffness. [id number] [address] Work Phone: 02-01-2021 History of Present illness Narrative 61-year-old male presents with complaint of left lateral elbow pain. He did have bilateral common extensor tendon percutaneous tenotomy procedures. The right lateral elbow was performed on February 01, 2021, and the left lateral elbow was performed on March 15, 2021. Overall, he feels that he is doing quite well to this regard. However, he has developed forearm tingling and weakness that is become progressively worse of the past 2 months. He felt like this was slightly bothersome prior to the left lateral elbow percutaneous tenotomy, however has become progressively worse since that time. [id number] [address] Work Phone: 02-01-2021 History of Present illness Narrative 61-year-old male presents with complaint of left lateral elbow pain. He did have bilateral common extensor tendon percutaneous tenotomy procedures. The right lateral elbow was performed on February 01, 2021, and the left lateral elbow was performed on March 15, 2021. Overall, he feels that he is doing quite well to this regard. However, he has developed forearm tingling and weakness that is become progressively worse of the past 2 months. He felt like this was slightly bothersome prior to the left lateral elbow percutaneous tenotomy, however has become progressively worse since that time. He states that he is having weakness with repetitive motions and wrist extension. He denies acute trauma, neck pain or stiffness. [id number] 200 Work Phone: 02-01-2021 History of Present illness Narrative 61-year-old male presents with complaint of left lateral elbow pain. He did have bilateral common extensor tendon percutaneous tenotomy procedures. The right lateral elbow was performed on February 01, 2021, and the left lateral elbow was performed on March 15, 2021. Overall, he feels that he is doing quite well to this regard. However, he has developed forearm tingling and weakness that is become progressively worse of the past 2 months. He felt like this was slightly bothersome prior to the left lateral elbow percutaneous tenotomy, however has become progressively worse since that time. He states that he is having weakness with repetitive motions and wrist extension. He denies acute trauma, neck pain or stiffness. [id number]-[address] [place] [address] DO Work Phone: Evaluation + Plan note Future Appointments Appointment Date:05/16/2023 08:30:00 AM Scheduled Provider: Location:[facility] Appointment Type: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, subsequent encounter ([facility]) Chronic bilateral low back pain with right-sided sciatica [facility]* Diagnosis History of disarticulation of right knee (HCC)- Primary Gait abnormality Abnormality of gait Phantom limb pain (HCC) Phantom limb (syndrome) 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, subsequent encounter ([facility]) Chronic bilateral low back pain with right-sided sciatica [facility]* Diagnosis Joint pain of ankle and foot, left- Primary Peroneal tendinitis, unspecified laterality Traumatic arthritis of left ankle Joint pain of ankle and foot, left documented in this encounter [facility] Work Phone: Evaluation note* Diagnosis Peroneal tendinitis, unspecified laterality Traumatic arthritis of left ankle documented in this encounter [facility] Work Phone: Evaluation note* Diagnosis Radial tunnel syndrome, left- Primary Preop testing Unspecified pre-operative examination Radial tunnel syndrome, left documented in this encounter [facility] Work Phone: Evaluation note* Diagnosis Preop testing Unspecified pre-operative examination documented in this encounter [facility] Work Phone: Evaluation note* Diagnosis Radial tunnel syndrome, left- Primary Radial tunnel syndrome, left documented in this encounter [facility] Work Phone: Evaluation note* Diagnosis Radial tunnel syndrome, left- Primary documented in this encounter [facility] Work Phone: History of Present illness Narrative* Patient returns today to follow-up on his left elbow. He is seen at the request of Dr. Almeida. He had an industrial injury in 2010 resulting in a amputation of his right leg. He developed severe bilateral elbow pain likely related to his need for weightbearing through his upper extremities. I initially saw him in 2020 and diagnosed with bilateral lateral epicondylitis and referred him to Dr. Almeida. He has gone through treatment with Dr. Almeida and has had some improvement of symptoms particular in the right arm but continues to have significant pain in the proximal forearm of the left upper extremity. Based on his persistence of symptoms Dr. Almeida performed an ultrasound-guided injection into the radial tunnel in the proximal forearm which resulted in improvement in the patient's symptoms for about 1 week. He then subsequently performed EMG and neuromuscular ultrasound examinationin an effort to see if there is any objective evidence of radial tunnel syndrome, which there is oft en not. EMG testing revealed normal results however neuromuscular ultrasound examination did revealsome subtle changes in the appearance of the radial nerve as it exited the supinator muscle in the proximal forearm. Patient reports that radial tunnel syndrome has now been an allowed condition in his industrial claim. His physician of record is Dr. Cooper. He is being sent here for surgical consideration. Since his last visit with me he has had multiple other revision procedures for his right leg injury and now has an above-knee amputation with a prosthesis. He still uses crutches and walkers frequently but has to modify the way he uses it with his left arm to minimize the forearm pain. * Past medical history, medications, allergies, surgical history and review of systems have been reviewed with the patient. Pertinent changes are documented in the HPI. Otherwise they are unchanged when compared to last visit on November 10, 2020. * Physical Examination Findings: * Constitutional: Appears well-developed and well-nourished. * Head: Normocephalic and atraumatic. * Eyes: Pupils are equal and round. * Cardiovascular: Intact distal pulses. * Respiratory: Effort normal. No respiratory distress. * Neurologic: Alert and oriented to person, place, and time. * Skin: Skin is warm and dry. * Hematologic / Lymphatic: No lymphedema, lymphangitis. * Psychiatric: normal mood and affect. Behavior is normal. * Musculoskeletal: Examination of the left upper extremity reveals mild tenderness at the common extensor origin but more significant focal tenderness directly over the supinator muscle in the proximalforearm about 2 to 3 inches distal and slightly more anterior from the lateral epicondyle. Pain is a ggravated by forceful television servicer. He has a dull achy pain that radiates out the forearm. He reports that he occasionally has some numbness and tingling in his fingers but provocative maneuvers for carpal tunnel syndrome performed today in the office are negative. * Review of EMG study performed in October of this year reveals normal results. No evidence of any median nerve or ulnar nerve compression. * Review of neuromuscular ultrasound examination performed in October of this year demonstrates moreor less normal results except findings of a focal enlargement of the radial nerve as it exited the radial tunnel and immersion to the posterior compartment of the forearm. * Impression: Radial tunnel syndrome. * Plan: This is oftentimes a very difficult diagnosis to make. Neurodiagnostic tests are typically normal and the diagnosis is made as a basis of exclusion once other potential conditions have been ruled out. He has already had treatment for lateral epicondylitis and his forearm symptoms have persisted. He did have improvement following a steroid injection into the radial tunnel which is favorable for the diagnosis of radial tunnel syndrome. I think his best option now is to consider a radial nerve decompression of the proximal forearm. We discussed what this would entail. I think that this is a good opportunity to improve the pain that he is having in his forearm but I have not promised him that I can eliminate all of his pain. He indicates that he certainly understands that some of his pain may persist given all of the injuries and surgeries that he has been through. He would like to move forward with surgery. * I will communicate with his physician of record to confirm that this diagnosis has been allowed in his industrial claim and if so we can then request approval for left forearm radial nerve decompression surgery. Once approval for surgery has been provided we can get him scheduled for this procedure. * For Surgical Planning: * Diagnosis: Left upper extremity radial tunnel syndrome * Procedure: Left upper extremity radial nerve decompression * CPT: 26423 * Anesthesia: General * Duration: 45 minutes * Special Equipment Needed: None * Medical Notes / PM / DM / PAT: N/A * Location: Any * Initial Post Operative Visit: 2 weeks * Krishna hCavez MD * Meat Team Member * [facility] [employer] [facility] [employer] * Department of Orthopaedic Surgery * Chief of Hand and Upper Extremity Surgery * [facility] * Dictation performed with the use of voice recognition software. Syntax and grammatical errors may exist. [id number] [address] Work Phone: Hospital course Narrative No data available for this section [facility] Discharge instructions No data available for this section [facility] Progress note No data available for this section [facility] Family History No Family History Records Found Mother Name Dates Details Family history of lung cance r(V16.1, Z80.1) Status:Active Family history of Brain tumo r(239.6, D49.6) Status:Active Family history of malignant neoplasm of bone(V16.8, Z80.8) Status:Active Mother Name Dates Details Family history of lung cance r(V16.1, Z80.1) Status:Active Family history of Brain tumo r(239.6, D49.6) Status:Active Family history of malignant neoplasm of bone(V16.8, Z80.8) Status:Active Unknown Family Member Name Dates Details Family history of lung cance r: Mother(V16.1, Z80.1) Status:Active Brain tumor: Mother Status:Active Family history of malignant neoplasm of bone: Mother(V16.8, Z80.8) Status:Active Unknown Family Member Name Dates Details Family history of lung cance r: Mother(V16.1, Z80.1) Status:Active Brain tumor: Mother Status:Active Family history of malignant neoplasm of bone: Mother(V16.8, Z80.8) Status:Active Unknown Family Member Name Dates Details Family history of lung cance r: Mother(V16.1, Z80.1) Status:Active Brain tumor: Mother Status:Active Family history of malignant neoplasm of bone: Mother(V16.8, Z80.8) Status:Active Unknown Family Member Name Dates Details Family history of malignant neoplasm of bone: Mother(V16.8, Z80.8) Status:Active Brain tumor: Mother Status:Active Family history of lung cance r: Mother(V16.1, Z80.1) Status:Active Unknown Family Member Name Dates Details Family history of lung cance r: Mother(V16.1, Z80.1) Status:Active Brain tumor: Mother Status:Active Family history of malignant neoplasm of bone: Mother(V16.8, Z80.8) Status:Active Unknown Family Member Name Dates Details Family history of malignant neoplasm of bone: Mother(V16.8, Z80.8) Status:Active Brain tumor: Mother Status:Active Family history of lung cance r: Mother(V16.1, Z80.1) Status:Active Unknown Family Member Name Dates Details Family history of lung cance r: Mother(V16.1, Z80.1) Status:Active Brain tumor: Mother Status:Active Family history of malignant neoplasm of bone: Mother(V16.8, Z80.8) Status:Active Unknown Family Member Name Dates Details Family history of malignant neoplasm of bone: Mother(V16.8, Z80.8) Status:Active Brain tumor: Mother Status:Active Family history of lung cance r: Mother(V16.1, Z80.1) Status:Active Unknown Family Member Name Dates Details Family history of lung cance r: Mother(V16.1, Z80.1) Status:Active Brain tumor: Mother Status:Active Family history of malignant neoplasm of bone: Mother(V16.8, Z80.8) Status:Active Unknown Family Member Name Dates Details Family history of lung cance r: Mother(V16.1, Z80.1) Status:Active Brain tumor: Mother Status:Active Family history of malignant neoplasm of bone: Mother(V16.8, Z80.8) Status:Active Unknown Family Member Name Dates Details Family history of malignant neoplasm of bone: Mother(V16.8, Z80.8) Status:Active Brain tumor: Mother Status:Active Family history of lung cance r: Mother(V16.1, Z80.1) Status:Active Unknown Family Member Name Dates Details Family history of malignant neoplasm of bone: Mother(V16.8, Z80.8) Status:Active Brain tumor: Mother Status:Active Family history of lung cance r: Mother(V16.1, Z80.1) Status:Active Unknown Family Member Name Dates Details Family history of lung cance r: Mother(V16.1, Z80.1) Status:Active Brain tumor: Mother Status:Active Family history of malignant neoplasm of bone: Mother(V16.8, Z80.8) Status:Active Unknown Family Member Name Dates Details Family history of lung cance r: Mother(V16.1, Z80.1) Status:Active Brain tumor: Mother Status:Active Family history of malignant neoplasm of bone: Mother(V16.8, Z80.8) Status:Active Summary Purpose Advance Directives No Advanced Directives Records FoundLatest Code Status on File Code Status Date Activated Date Inactivated Comments Full Code 04/26/2014 3:04 PM 04/27/2014 7:07 PM Latest Code Status on File Code Status Date Activated Date Inactivated Comments Full Code 04/26/2014 3:04 PM 04/27/2014 7:07 PM Latest Code Status on File Code Status Date Activated Date Inactivated Comments Full Code 04/26/2014 3:04 PM 04/27/2014 7:07 PM Chief Complaint peace elbow fuvbil elbow fuvbil elbow fuvbil elbow fuvbil elbow fuvPatient is here for a follow up for L elbow pain. CTFollow up L elbow/forearm pain. CTPatient presents for a [facility] follow up visit for L elbow pain. CTFollow up L elbow/forearm pain. CTPatient presents for a [facility] follow up visit for L elbow pain. CTPatient presents for a [facility] follow up visit for L elbow pain. CTPatient presents for a [facility] follow up visit for L elbow pain. CTNPV left elbow pain Reason for Referral Specialty Diagnoses / Procedures Referred By Giorgi hill Referred To Contact Radiology Diagnoses Phantom limb pain (HCC) History of disarticulation of right knee (HCC) Complex regional pain syndrome type 1 of right lower extremity Gait abnormality Procedures XR RT FEMUR MIN 2 VIEWS Estela Fontenot MD [address] [place] [phone] [facility] [address] [facility] [address] Referral ID Status Reason Start Date Expiration Date V isits Requested Visits Authorized [id number] Authorized 06/23/2022 05/23/2023 1 1 Specialty Diagnoses / Procedures Referred By Contac t Referred To Contact Radiology Diagnoses 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, subsequent encounter (HCC) Procedures MR FEMUR RIGHT W/O Ashwini Chaves MD [address] [place] [phone] [facility] MRI [address] [place], [place] [id number] Referral ID Status Reason Start Date Expiration Date V isits Requested Visits Authorized [id number] Pending Review 06/19/2022 06/19/2023 1 1 Specialty Diagnoses / Procedures Referred By Contac t Referred To Contact Radiology Diagnoses Chronic bilateral low back pain with right-sided sciatica Procedures XR L-SPINE AP+LATERAL Ashwini Chaves MD [address] [place] [address] [facility] [address] [place] [address] [place] [address] Referral ID Status Reason Start Date Expiration Date V isits Requested Visits Authorized [id number] Authorized 06/19/2022 06/19/2023 1 1 Referral ID Status Reason Start Date Expiration Date Visits Requested Visits Authorized [id number] Authorized Transfer of Care-[facility] 07/26/2022 01/22/2023 1 1 Specialty Diagnoses / Procedures Referred By Contac t Referred To Contact Radiology Diagnoses Peroneal tendinitis, unspecified laterality Traumatic arthritis of left ankle Procedures MR ankle left wo IV contrast Dayna Bush MD [address] [facility], [place] [address] Referral ID Status Reason Start Date Expiration Date Visits Requested Visits Authorized [id number] Pending Review Perform Procedure 07/08/2023 01/04/2024 1 1 Specialty Diagnoses / Procedures Referred By Contac t Referred To Contact Radiology Diagnoses Joint pain of ankle and foot, left Procedures XR ankle left 3+ views Dayna Bush MD [address] [facility] [place] [address] Referral ID Status Reason Start Date Expiration Date Visits Requested Visits Authorized [id number] Authorized Perform Procedure 07/04/2023 12/31/2023 1 1 Specialty Diagnoses / Procedures Referred By Contac t Referred To Contact Diagnoses Preop testing Procedures ECG 12 lead (Ancillary Performed) Krishna Chavez MD [address] [place] [address] Referral ID Status Reason Start Date Expiration Date V isits Requested Visits Authorized [id number] Pending Review 09/05/2023 09/04/2024 1 1 Additional Source Comments (unrecognized sect ion and content) No Status Records FoundNo Status Records FoundNo Status Records FoundNo Status Records FoundNo Status Records FoundNo Status Records FoundNo Status Records FoundNo Status Records FoundNo Status Records FoundNo Status Records Found INFORMATION SOURCE (unrecogn ized section and content) DATE CREATED AUTHOR AUTHOR'S ORGANIZ ATION 12/18/[address] [facility] DATE CREATED AUTHOR AUTHOR'S ORGANIZ ATION 12/20/2022 [employer] DATE CREATED AUTHOR AUTHOR'S ORGANIZ ATION 06/20/2023 [employer] DATE CREATED AUTHOR AUTHOR'S ORGANIZ ATION 08/30/2023 [facility] DATE CREATED AUTHOR AUTHOR'S ORGANIZ ATION 09/14/2023 [facility] DATE CREATED AUTHOR AUTHOR'S ORGANIZ ATION 09/17/2023 [facility] DATE CREATED AUTHOR AUTHOR'S ORGANIZ ATION 10/11/2023 [facility] DATE CREATED AUTHOR AUTHOR'S ORGANIZ ATION 10/12/2023 [facility] DATE CREATED AUTHOR AUTHOR'S ORGANIZ ATION 10/19/2023 [facility] Reason for Visit (unrecogniz ed section and content) Reason Comments Monitoring/follow-up Reason Onset Date Comments Prior Authorization 12/12/2022 Amrix 15 mg Reason Comments Pain Worker's Compensation Specialty Diagnoses / Procedures Referred By Contac t Referred To Contact Radiology Diagnoses Peroneal tendinitis, unspecified laterality Traumatic arthritis of left ankle Procedures MR ankle left wo IV contrast Dayna Bush MD [address] [facility] [place] [address] Referral ID Status Reason Start Date Expiration Date Visits Requested Visits Authorized [id number] Pending Review Perform Procedure 07/08/2023 01/04/2024 1 1 Specialty Diagnoses / Procedures Referred By Contac t Referred To Contact Diagnoses Preop testing Procedures ECG 12 lead (Ancillary Performed) Krishna Chavez MD [address] [place] [address] Referral ID Status Reason Start Date Expiration Date V isits Requested Visits Authorized [id number] Pending Review 09/05/2023 09/04/2024 1 1 Specialty Diagnoses / Procedures Referred By Contac t Referred To Contact Diagnoses Radial tunnel syndrome, left Radial tunnel syndrome, left [G56.32] Procedures FL NEURP MAJOR PRPH NRV ARM/LEG OPN OTH/THN SPEC Left upper extremity radial nerve decompression / 45 minutes Krishna Chavez MD [address] [place] [address] [place] [address] [place] [address] Referral ID Status Reason Start Date Expiration Date Visits Re quested Visits Authorized [id number] 1 1 Reason Comments Post-op Care Teams (unrecognized sec tion and content) Hydrotherapist Relationship Specialty Start Date End Date Dayna Bush MD [address] [place] [phone] Physician Orthopaedics 12/30/20 Estela Fontenot MD [address] [place] [address] Physician Physical Medicine & Rehab/PM&R 05/05/22 Hydrotherapist Relationship Specialty Start Date End Date Dayna Bush MD [address] [place] [address] Physician Orthopaedics 12/30/20 Estela Fontenot MD [address] [place] [phone] Physician Physical Medicine & Rehab/PM&R 05/05/22 Ashwini Chaves MD [address] [place] [address] Physician Physical Medicine & Rehab/PM&R 06/30/22 Hydrotherapist Relationship Specialty Start Date End Date Dayna Bush MD [address] [place] [address] Physician Orthopaedics 12/30/20 Estela Fontenot MD [address] [place] [address] Physician Physical Medicine & Rehab/PM&R 05/05/22 Ashwini Chaves MD [address] [place] [address] Physician Physical Medicine & Rehab/PM&R 06/30/22 Hydrotherapist Relationship Specialty Start Date End Date Dayna Bush MD [address] [place] [address] Physician Orthopaedics 12/30/20 Estela Fontenot MD [address] [place] [address] Physician Physical Medicine & Rehab/PM&R 05/05/22 Ashwini Chaves MD [address] [place] [address] Physician Physical Medicine & Rehab/PM&R 06/30/22 Hydrotherapist Relationship Specialty Start Date End Date Dayna Bush MD [address] [address] Physician Orthopaedics 12/30/20 Estela Fontenot MD [address] [place] [address] Physician Physical Medicine & Rehab/PM&R 05/05/22 Ashwini Chaves MD [address] [place] [address] Physician Physical Medicine & Rehab/PM&R 06/30/22 Hydrotherapist Relationship Specialty Start Date [place] Hao Cooper [place] [id number] [place] [phone] PCP - General 01/10/16 Hydrotherapist Relationship Specialty Start [place] Hao [place] [id number] [place] [address] [place] [phone] PCP - General 01/10/16 Hydrotherapist Relationship Specialty Start Date [place] Hao [place] [id number] [place] [phone] PCP - General 01/10/16 Hydrotherapist Relationship Specialty Start Date End Date Hao Cooper MD [id number] [place] [address] [place] [phone] PCP - General 01/10/16 Hydrotherapist Relationship Specialty [place] [address] [facility] [address] [place] [phone] PCP - General 01/10/16 Hydrotherapist Relationship Specialty [place] [address] [facility] [address] [place] [address] PCP - General 01/10/16 Care Team (unrecognized sect ion and content) Care Team Personnel Name: [place] Position: Physician Member Role: Primary Care Physician Address: Address: [address] [place] [address] Care Team Related Persons Name: ANDRE MARTINEZ Care Team Personnel Name: [place] Position: Physician Member Role: Primary Care Physician Address: Address: [address] [place] [address] Care Team Related Persons Name: ANDRE MARTINEZ Scheduled Active and Recently Administ ered Medications (unrecognized section and content) Continuous Medication Order 09/09/2023 09/10/2023 09/11/2023 lactated Ringer's infusion 50 mL/hr, intravenous, Continuous, Starting on Sat09/11/23 at 0700, Preprocedure 0759 (New Bag - Prov ider: JOSE Simmons)0852 (Anesthesia Volume Adjustment - Provider: JOSE Simmons) lactated Ringer's infusion 100 mL/hr, intravenous, Continuous, Starting on Sat09/11/23 at 0900, Recovery (only) 0900 (Due) PRN Medication Order 09/09/2023 09/10/2023 09/11/2023 albuterol 2.5 mg /3 mL (0.083 %) nebulizer solution 2.5 mg 2.5 mg, nebulization, Once as needed, wheezing, Starting on Sat09/11/23 at 0855, For 1 dose, Recovery (only) BUPivacaine HCl (Marcaine) 0.5 % (5 mg/mL) injection (CANCELED) As needed, Starting on Sat09/11/23 at 0838, Intraprocedure 0838 (Given - Provid er: Krishna Chavez MD) fentaNYL PF (Sublimaze) injection 50 mcg 50 mcg, intravenous, Every 5 min PRN, pain moderate (4-6), first line, Starting on Sat09/11/23 at 0855, Recovery (only), Max total of 200 micrograms regardless of dose., If ordered PRN for pain, nurse is permitted to administer this medication for higher pain scores based on patient preference? Yes 0858 (Given - Provid er: Kerri Paula RN) hydrALAZINE (Apresoline) injection 5 mg 5 mg, intravenous, Administer over 2 Minutes, Every 30 min PRN, high blood pressure, systolic blood pressure greater than 180 mmHg and heart rate less than 60 BPM, Starting on Sat09/11/23 at 0855, For 2 doses, Recovery (only) HYDROmorphone (Dilaudid) injection 0.4 mg 0.4 mg, intravenous, Every 5 min PRN, pain severe (7-10), first line, Starting on Sat09/11/23 at 0855, Recovery (only), Max total of 4 mg regardless of dose. lidocaine (Xylocaine) 10 mg/mL (1 %) injection (CANCELED) As needed, Starting on Sat09/11/23 at 0838, Intraprocedure 0838 (Given - Provid er: Krishna Chavez MD) meperidine PF (Demerol) injection 12.5 mg 12.5 mg, intravenous, Every 10 min PRN, shivering, Starting on Sat09/11/23 at 0855, Recovery (only) midazolam (Versed) injection 1 mg 1 mg, intravenous, Once as needed, anxiety, Starting on Sat09/11/23 at 0855, For 1 dose, Recovery (only) ondansetron (Zofran) injection 4 mg 4 mg, intravenous, Once as needed, nausea/vomiting, first line, Starting on Sat09/11/23 at 0855, For 1 dose, Recovery (only), When administering via IV Push, administer over 3-5 minutes. promethazine (Phenergan) 6.25 mg in sodium chloride 0.9% 50 mL IV 6.25 mg, intravenous, Administer over 15 Minutes, Once as needed, Nausea/vomiting, second line, Starting on Sat09/11/23 at 0855, For 1 dose, Recovery (only) FOR RECORDS PERTAINING TO PATIENTS WHO ARE OR HAVE BEEN ENROLLED IN A CHEMICAL DEPENDENCY/SUBSTANCEABUSE PROGRAM, SOME INFORMATION MAY BE OMITTED. This clinical summary was aggregated from multiple sources. Caution should be exercised in using it in the provision of clinical care. This summary normalizes information from multiple sources, and as a consequence, information in this document may materially change the coding, format and clinical context of patient data. In addition, data may be omitted in some cases. CLINICAL DECISIONS SHOULD BE BASED ON THE PRIMARY CLINICAL RECORDS. [facility]. provides no warranty or guarantee of the accuracy or completeness of information in this document.
== END | disposition home or self-care (01) ==
DX: R94.5 Abnormal results of liver function studies (principal)
CPT/HCPCS: 76705